=== PATIENT | male | born 1945 | race Caucasian/White ===

== ENCOUNTER 2016-11-02 15:06 | Inpatient (IN) | payer MEDICARE, OTHER ==
[2016-11-02] VITALS (11 sets, daily range): BP systolic 113–153; BP diastolic 57–82; PULSE 51–112; RESP 15–22; O2SAT 83–97
[~2016-11-02] VITALS: Ht 182.9 cm; Wt 162.8 kg
[~2016-11-02 15:06] MED LIST: ALBU8.5H2 INHALATION; ALFU10TA11 PO; FURO-128 PO; SILD100T PO
--- NOTE | 2016-11-02 15:58 | ED.REPORT ---
HPI-Dyspnea / Wheezing Date of Service Nov 02, 2016 ED Provider: Narcisa Cornejo MD A 70 year old male with a history of hypertension and CHF presents to the ED with exertional shortness of breath onset one week ago, worsening today. The shortness of breath is not exacerbated by laying flat. The patient also reports scrotal swelling, scrotal pain which has resolved, dysuria, lower extremity swelling, and a chronic left ankle wound. He denies fevers, chills, cough, or other symptoms. The patient was seen [facility] today for the wound on his ankle. [facility]. The patient did not take his Lasix today. Nursing Notes Stated Complaint: DECREASE OXYGEN LEVELS, SOB, SCROTAL SWELLING Chief Complaint: General Complaint Nursing Notes Reviewed: Yes Allergies: Coded Allergies: No Known Allergies (Unverified , 11/02/16) Scheduled Alfuzosin ER (Alfuzosin ER) 10 Mg Tab.er.24h 10 MG PO DAILY Aspirin Chew (Aspirin Chew) 81 Mg Chew 81 MG PO DAILY Cholecalciferol (Vitamin D3) (Children's Vitamin D3) 1,000 Unit Tab.chew 2,000 UNIT PO DAILY Cyanocobalamin (Vitamin B-12) (Vitamin B-12) 1,000 Mcg Tablet 1,000 MCG PO DAILY Furosemide (Furosemide) 40 Mg Tablet 40 MG PO BIDWM Tiotropium Br/Olodaterol HCl (Stiolto Respimat Inhal [place]) 2.5 Mcg-2.5 Mcg/ Actuation Mist.inhal 2 GM IH DAILY PT UNSURE OF INHALER MEDICATION. STATES STARTS WITH ST. Scheduled PRN Albuterol HFA (Proair HFA) 8.5 Gm Hfa.aer.ad 2 PUFFS INHALATION Q4H PRN PRN For Shortness of Breath Hydrocodone-Acetaminophen 5-325 mg (Hydrocodone-Acetaminophen 5-325 mg) 1 Each Tablet 1 TABLET PO TID PRN PRN For Pain Sildenafil Citrate (Viagra) 100 Mg Tablet 100 MG PO UD PRN PRN ED General Time Seen by MD: 15:56 Chief Complaint Shortness of breath Hx Obtained From: Patient Arrived By: Walk-in Onset Occurred: 1 week ago (Worsening today) Symptom Duration: Since onset Quality: Painful (Scrotum) Severity: Current: No pain currently Severity: Maximum: Moderate Associated with: Reports: Leg swelling, Denies: Cough, Fever Exacerbated by: Activity Context Related History: Reports: Congestive heart failure Recent Healthcare: Recent doctor visit Similar Sx Previous: Yes Past Medical History Past Medical History Venous hypertension CHF Past Surgical History Stomach bypass surgery Smoking History Current Every Day Smoker (5-6 Cigarettes) Ambulatory Status Independent Review of Systems Review of Systems Note: + Scrotal pain, chronic left ankle wound Constitutional: Denies: Chills, Fever Respiratory: Reports: Shortness of breath, Denies: Non-productive cough Musculoskeletal: Reports: Extremity swelling (Lower) Complete sys rev & neg: except as marked. GI: Denies: Diarrhea, Vomiting Male: Reports Dysuria, Reports Scrotal swelling Physical Exam Initial Vital Signs Vital Signs (First) Date Time Temp Pulse Resp B/P Pulse Ox O2 Delivery O2 Flow Rate FiO2 11/02/16 15:11 36.6 92 20 136/82 83 Room Air 11/02/16 15:45 2 Initial VS: Reviewed Head / Eyes: Atraumatic, Normocephalic Skin: Warm, Dry Neurologic: Alert, Oriented, Nonfocal Psychiatric: Mood/affect normal, Behavior normal, Normal thought content General/Constitutional: Awake, Alert Neck: Supple, Full range of motion Respiratory / Chest: No respiratory distress Diminished Breath Sounds: Positive: Decreased bilateral Rales / Rhonchi: Positive: Rhonchi diffuse (Scattered) Cardiovascular: Heart sounds NL Heart Rate / Rhythm: Positive: Irreg irregular rhythm ENT: Airway patent Mouth: Positive: Mucous membranes dry Abdomen: Soft, Non-tender Swollen Lower Extremity / Pelvis / MS: Non-tender Right Thigh: Positive: Erythema present, Swelling present... Left Thigh: Positive: Erythema present, Swelling present... Right Leg / Calf: Positive: Erythema present, Swelling present... Left Leg / Calf: Positive: Erythema present, Swelling present... Chronic wound to left lateral malleolus just seen and wrapped in wound care today Male Genitourinary: Penis NL Testes / Epidid / Scrotum: Positive: Scrotum erythema, Scrotum swollen Interpretation & Diagnostics Lab Results Interpretation Result Diagram: 11/02/16 1615 11/02/16 1615 Test 11/02/16 16:15 11/02/16 18:42 11/02/16 19:37 White Blood Count 8.3th/mm3 (3.8-10.1) Red Blood Count 4.79mil/mm3 (4.40-5.80) Hemoglobin 11.9g/dL (13.8-17.2) Hematocrit 40.1% (41.0-50.0) Mean Corpuscular Volume 83.7fL (81-100) Mean Corpuscular Hemoglobin 24.8pg (27.0-35.0) Mean Corpuscular Hemoglobin Concent 29.7% (32.0-37.0) Red Cell Distribution Width 18.4% (12.3-15.4) Platelet Count 213bil/L (150-400) Neutrophils (%) (Auto) 72.8% (40-74) Lymphocytes (%) (Auto) 17.4% (14-46) Monocytes (%) (Auto) 8.8% (4-12) Eosinophils (%) (Auto) 0.6% (0-5) Basophils (%) (Auto) 0.2% (0-3) Sodium Level 142mEq/L (134-144) Potassium Level 4.2mEq/L (3.5-5.2) Chloride Level 98mEq/L (97-108) Carbon Dioxide Level 33mmol/L (18-29) Blood Urea Nitrogen 15mg/dL (8-27) Creatinine 0.52mg/dL (0.76-1.27) Estimat Glomerular Filtration Rate 167mL/min (>59) Glucose Level 94mg/dL (60-99) Calcium Level 8.6mg/dL (8.5-10.1) Total Bilirubin 0.8mg/dL (0.0-1.2) Aspartate Amino Transf (AST/SGOT) 16U/L (0-50) Alanine Aminotransferase (ALT/SGPT) 9U/L (0-44) Alkaline Phosphatase 120U/L (25-160) Troponin T < 0.010ug/L (0.0-0.011) Pro-B-Type Natriuretic Peptide 944.4pg/mL (0-376) Total Protein 6.6g/dL (6.4-8.4) Albumin 3.6g/dL (3.4-5.0) Hold Abbasi Top Tube Received (Received) Urine Color Yellow (YELLOW) Urine Appearance Hazy (CLEAR,HAZY) Urine pH 6.0 (5.0-8.0) Urine Specific Wilkinson 1.015 (1.003-1.035) Urine Protein Negativemg/dL (NEG,TRACE) Urine Glucose (UA) Negativemg/dL (NEGATIVE) Urine Ketones Negativemg/dL (NEGATIVE) Urine Occult Blood Small (NEGATIVE) Urine Nitrite Negative (NEGATIVE) Urine Bilirubin Negative (NEGATIVE) Urine Urobilinogen Normalmg/dL (NORMAL) Urine Leukocyte Esterase Small (NEGATIVE) Urine RBC 3-10/hpf (0-2) Urine WBC 6-10/hpf (0-5) Urine Epithelial Cells Few/hpf (NONE-MOD) Urine Crystals None seen (NONE SEEN) Urine Bacteria Few/hpf (NONE-FEW) Urine Hyaline Casts None/lpf (NONE) Urine Granular Casts None seen (NONE SEEN) Urine Waxy Casts None seen (NONE SEEN) Urine Red Blood Cell Casts None seen (NONE SEEN) Urine White Blood Cell Casts None seen (NONE SEEN) Urine Mucus Present (None Seen) Urine Trichomonas None seen (NONE SEEN) Urine Yeast None (NONE SEEN) Urinalysis Comment None Urine Culture Reflexed Indicated Hold Urine Received (Received) ECG Interpretation ECG Interpretation: Atrial fibrillation rate 102 Low voltage No acute ST or T-wave changes Time: 15:33 Interpreted by: ED physician X-Ray Chest Interpretation Chest Xray Interpretation: IMPRESSION: Increased pulmonary vascularity suggesting of edema. There is blunting of the right costophrenic angle which could represent focal edema or nodular opacity. Recommend followup to document resolution. Dictated by: Darling Mckay M.D. on 11/02/2016 at 16:07 View: Portable, 1 view Interpretation / Wet Read by: Interpret - Radiologist CT Chest Interpretation IMPRESSION: 1. No visualized embolism within the main pulmonary branches. Distal branches are heterogeneous in appearance secondary to technique. Small areas of distal emboli versus artifact cannot be excluded. 2. Mild appearance of pulmonary vascularity. 3. Nonspecific nodules bilaterally, the largest measuring 11 mm. No priors are available for comparison. Recommend interval followup as below. Fleischner Society criteria for lung nodule followup. Nodule size (mm)Low-risk patientHigh-risk patient<=4No follow-up needed.Follow-up at 12 months; if no change, no further follow-up.>[id number] CT at 12 months; if no change, no further follow-up needed.Initial follow-up CT at 6-12 months, then 18-24 months if no change.>6-8Initial follow-up CT at 6-12 months, then 18-24 months if no change.Initial follow-up CT at 3-6 months, then 9-12 months and 24 months if no change.>8Follow-up CT at 3,9 and 24 months or PET and/or biopsySame as for low-risk patientsNon-solid (ground-glass) or partly solid nodules may require longer follow-up to exclude indolent adenocarcinoma. Dictated by: Darling Mckay M.D. on 11/02/2016 at 18:02 Study type: CT pulm angiogram Interpretation / Wet Read by: Interpret - Radiologist Re-Eval/Medical Decision Med Decision/Clinical Course The patient was sent here due to his hypoxia. He also complains of scrotal swelling and has anasarca. It appears he has chronic cellulitis to his lower extremities. Given the patient's new onset atrial fibrillation and hypoxia, CT angios obtained to rule out DVT. There is no obvious clots seen. The patient does have CHF which may be the cause of his symptoms. Additionally pneumonia was a consideration that was not shown. Source of Hx: Old records Re-Evaluation/Progress : Time of Eval: 18:41 Patient Status: Condition improved Re-Evaluation/Progress Note: Discussed with patient x-ray, CT, and lab results, diagnosis, and plan for admit. Patient agrees with plan for care and all questions were addressed. Consultation : Referral / Consult Name: Antonia Mcgovern DO Consulted With: Hospitalist Call Returned at: 19:36 Funder: Agrees with eval, Agrees with plan, Accepts admit Counseled Regarding: Diagnosis, Lab results, Need for admission Discharge & Departure Impression: Primary Impression: CHF (congestive heart failure) Congestive heart failure type: unspecified congestive heart failure type Congestive heart failure chronicity: acute on chronic Qualified Code: I50.9 - Heart failure, unspecified Additional Impressions: New onset atrial fibrillation Hypoxia Disposition: ADMITTED TO HOSPITAL Discharge Condition All VS Reviewed: Yes Condition: Improved [facility] Scribe Attestation Portions of this note were transcribed by Meenakshi Ortiz. IDr. Cornejo, personally performed the history, physical exam, and medical decision-making; I reviewed and confirmed the accuracy of the information in the transcribed note. Signed by: Berna Pan, 11/02/2016, 21:30 copies to: [facility] Narcisa Cornejo MD Nov 02, 2016 15:58 MEENAKSHI ORTIZ Nov 02, 2016 16:05
--- NOTE | 2016-11-02 16:12 | DRSVH ---
PROCEDURE: X-RAY CHEST ONE VIEW, PORTABLE ([id number]) INDICATIONS: Dyspnea TECHNIQUE: One view of the chest was acquired. COMPARISON: None. FINDINGS: Surgical changes and devices: None. Lungs and pleura: There is an overall appearance of increased pulmonary vascularity. There is blunt ing of the costophrenic angle. Mediastinum: Mediastinal contours appear normal. Heart size is normal. Bones and chest wall: No suspicious bony lesions. Overlying soft tissues appear unremarkable. IMPRESSION: Increased pulmonary vascularity suggesting of edema. There is blunting of the right cos tophrenic angle which could represent focal edema or nodular opacity. Recommend followup to document resolution. Dictated by: Darling Mckay M.D. on 11/02/2016 at 16:07 Approved by: Darling Mckay M.D. on 11/02/2016 at 16:11
[2016-11-02 16:29] LABS: BASOPHILS % (AUTO) 0.2 % (0-3); EOSINOPHILS % (AUTO) 0.6 % (0-5); MONOCYTES % (AUTO) 8.8 % (4-12); Mean Corpuscular Hemoglobin 24.8 pg (27.0-35.0); Mean Corpuscular Volume 83.7 fL (81-100); NEUTROPHILS % (AUTO) 72.8 % (40-74); Platelet Count 213 bil/L (150-400)
[2016-11-02 17:12] LABS: TROPONIN T < 0.010 ug/L (0.0-0.011)
[2016-11-02] MEDS ORDERED: Furosemide 10 mg/mL 4 mL Inj IVPUSH ONE (17:15)
--- NOTE | 2016-11-02 18:07 | DRSVH ---
PROCEDURE: CT ANGIO CHEST PULMONARY EMBOLISM ([id number]) INDICATIONS: hypoxia and afib TECHNIQUE: After the administration of intravenous contrast, 2 mm thick sections acquired from the pulmonary api elizabeth to the posterior costophrenic angles. 3-dimensional maximum intensity projection (MIP) coronal a nd sagittal reformats were then acquired through the thorax. For radiation dose reduction, the follo wing was used: automated exposure control, adjustment of mA and/or kV according to patient size. COMPARISON: None. FINDINGS: Image quality: Contrast opacification within the pulmonary arteries distal to the main branches is he terogeneous. Pulmonary arteries: Pulmonary arteries are normal in size, and demonstrate no intraluminal filling d efects to suggest central pulmonary embolism. Lungs and pleura: The lungs demonstrate a mild appearance of increased pulmonary vascularity. There i s a 10 mm nodule within the right middle lobe on series 5 image 28 without priors available for arnav rison. An adjacent 4 mm nodule seen on series 5 image 32. There is an 11 mm nodule the left lower lob e on series 5 image 23. 4 mm nodules present in the left lower lobe on series 5 image 30. Mediastinum: Heart size is normal, without pericardial effusion. No mediastinal or hilar adenopathy . Thoracic aorta is normal in caliber and enhancement. Esophagus is normal in caliber, without hiat al hernia. Bones and chest wall: No suspicious bony lesions. Ribs and thoracic spine appear intact throughout. Thyroid gland is unremarkable. No axillary or supraclavicular adenopathy. Abdomen: Visualized upper abdominal solid organs appear normal in the early arterial phase of enhanc ement. IMPRESSION: 1. No visualized embolism within the main pulmonary branches. Distal branches are heterogeneous in ap pearance secondary to technique. Small areas of distal emboli versus artifact cannot be excluded. 2. Mild appearance of pulmonary vascularity. 3. Nonspecific nodules bilaterally, the largest measuring 11 mm. No priors are available for comparis on. Recommend interval followup as below. Fleischner Society criteria for lung nodule followup. Nodule size (mm)Low-risk patientHigh-risk patient<=4No follow-up needed.Follow-up at 12 months; if no change, no further follow-up.>8-9Swxcof-xe CT at 12 months; if no change, no further follow-up neede d.Initial follow-up CT at 6-12 months, then 18-24 months if no change.>6-8Initial follow-up CT at 6- 12 months, then 18-24 months if no change.Initial follow-up CT at 3-6 months, then 9-12 months and 24 months if no change.>8Follow-up CT at 3,9 and 24 months or PET and/or biopsySame as for low-risk patientsNon-solid (ground-glass) or partly solid nodules may require longer follow-up to exclude indolent adenocarcinoma. Dictated by: Darling Mckay M.D. on 11/02/2016 at 18:02 Approved by: Darling Mckay M.D. on 11/02/2016 at 18:05
[2016-11-02 18:49] LABS: APPEARANCE,URINE HAZY (CLEAR,HAZY); COLOR,URINE YELLOW (YELLOW); OCCULT BLOOD,URINE SMALL (NEGATIVE); UROBILINOGEN,URINE NORMAL (NORMAL)
[2016-11-02] MEDS ORDERED: Polyethylene Glycol (PEG) 17 Gm Powder PO PRN (19:40)
[2016-11-02] MEDS ORDERED: Ondansetron 2 mg/mL 2 mL Inj IVPUSH PRN (19:40)
[2016-11-02] MEDS ORDERED: Alum-Mag Hydrox-Simeth 30 mL Suspension PO PRN (19:40)
[2016-11-02] MEDS ORDERED: ALBU8.5H2 INHALATION (20:44)
[2016-11-02] MEDS ORDERED: FURO40TA4 PO (20:44)
[2016-11-02] MEDS ORDERED: HYDR-4003 PO (20:46)
[2016-11-02] MEDS ORDERED: CYAN10008 PO (20:46)
[2016-11-02] MEDS ORDERED: ASPI81TA3 PO (20:46)
[2016-11-02] MEDS ORDERED: CHOL-29 PO (20:46)
[2016-11-02] MEDS ORDERED: TIOT4MIS3 IH (20:49)
[2016-11-02] MEDS ORDERED: Albuterol 2.5 mg/3 mL Inhalation Solution NEB PRN (22:23)
[2016-11-02] MEDS ORDERED: HYDROcodone-APAP 5-325 mg Tablet PO PRN (22:30)
--- NOTE | 2016-11-02 22:50 | PCM.HPMED ---
Subjective Date of Service Nov 02, 2016 Primary Provider: Admitting Physician: Antonia Mcgovern DO Primary Care Physician: [facility] Attending Physician: Antonia Mcgovern DO Chief Complaint: Hypoxia Shortness of breath Lower extremity edema History of Present Illness: Patient is a 70-year-old gentleman who presented to the emergency department after being seen [facility] by his primary care doctor for the complaint of scrotal swelling. While at the [facility] they found his O2 sat to be 83%, they instructed him to go to the emergency department. He claims that in the last week he has had worsening dyspnea on exertion, without orthopnea. He is haphazard historian only recalling medical conditions if specifically asked otherwise states "I have no medical problems" he denies ever having an echocardiogram performed, he denies having COPD and only having asthma exacerbation 40 years ago, but his outpatient medication reconciliation shows him to be on COPD inhalers. Additionally on further questioning he admits to having to use a CPAP machine at night and "but I do not need it." He is seen [address] [facility] wound care clinic for chronic left ankle wound. He takes 40 mg Lasix, recently up to twice a day, says he has not taken the medication today because if he took it in the morning he would not have been able to hold his urine until he got to the doctor's appointment. He denies any lightheadedness, dizziness, chest pain, nausea, vomiting, diarrhea , dysuria, scrotal pain, lower extremity pain, rashes, headaches, changes in vision, increased thirst. He states he has not eaten in almost 24 hours In the emergency department he was found to have: Temperature 36.6, heart rate of 32, 20 respirations per minute, 136/82, 83% on room air. He had a normal white count, mild anemia 11.9 hemoglobin, platelets 213, bicarbonate 33%, creatinine 0.52, otherwise CMP unremarkable. Negative troponin , BNP 944. Analysis showed pH 6.0, no protein, no glucose, no ketones, small occult blood, no nitrites, small leukocyte esterase, 3-10 red blood cells per high-powered field, 6-10 white blood cells per high-powered field, few urine bacteria, few epithelial cells and mucus is present EKG showed atrial fibrillation with a rate of 102, no acute ST or T-wave abnormalities. Chest x-ray showed increased pulmonary vascularity suggesting anemia. Also reported blunting of the right costophrenic angle which could represent edema or nodular opacity. Chest CT angiography: No pulmonary embolism was frankly seen, then at the distal branches are "heterogeneous in appearance secondary to technique. Small areas of distal emboli versus artifact cannot be excluded." Nonspecific nodules bilaterally, the largest measuring 11 mm. Review of Systems: Comprehensive review of systems performed, Negative unless stated in history of present illness Allergies Coded Allergies: No Known Allergies (Unverified , 11/02/16) Home Medications Scheduled Alfuzosin ER (Alfuzosin ER) 10 Mg Tab.er.24h 10 MG PO DAILY Aspirin Chew (Aspirin Chew) 81 Mg Chew 81 MG PO DAILY Cholecalciferol (Vitamin D3) (Children's Vitamin D3) 1,000 Unit Tab.chew 2,000 UNIT PO DAILY Cyanocobalamin (Vitamin B-12) (Vitamin B-12) 1,000 Mcg Tablet 1,000 MCG PO DAILY Furosemide (Furosemide) 40 Mg Tablet 40 MG PO BIDWM Tiotropium Br/Olodaterol HCl (Stiolto Respimat Inhal Cross Anchor) 2.5 Mcg-2.5 Mcg/ Actuation Mist.inhal 2 GM IH DAILY PT UNSURE OF INHALER MEDICATION. STATES STARTS WITH ST. Scheduled PRN Albuterol HFA (Proair HFA) 8.5 Gm Hfa.aer.ad 2 PUFFS INHALATION Q4H PRN PRN For Shortness of Breath Hydrocodone-Acetaminophen 5-325 mg (Hydrocodone-Acetaminophen 5-325 mg) 1 Each Tablet 1 TABLET PO TID PRN PRN For Pain Sildenafil Citrate (Viagra) 100 Mg Tablet 100 MG PO UD PRN PRN ED to be [facility] with [facility] PMH Poor historian Venous hypertension Congestive heart failure Chronic venous insufficiency ulcer left lower extremity (assumed not stated) Based on medications we presume the following COPD BPH Surgical History Gastric bypass Appendectomy Social History Occupation: retired Hx Substance Use: No Hx Tobacco Use: Yes Smoking Status: Current Every Day Smoker (5-6 Cigarettes) Years of Smokin Exam Vital Signs Vital Sign - Last Date Time Temp Pulse Resp B/P Pulse Ox O2 Delivery O2 Flow Rate FiO2 11/02/16 21:14 112 11/02/16 20:54 36.9 22 141/82 93 Nasal Cannula 2.00 Exam General: Laying in bed, no apparent distress. Disheveled HEENT: Normocephalic, atraumatic, EOMI grossly, mucous membranes dry, Cardiovascular: Irregularly irregular, tachycardic, no clicks murmurs or rubs, radial pulses 2/4 equal bilaterally. Pulmonary: Diminished breath sounds bilaterally, diffuse inspiratory and expiratory wheezing. No rales or rhonchi Abdominal: Soft to palpation, bowel sounds present 4, no hepatosplenomegaly. Negative rebound. Bright red, moist, foul-smelling skin under pannus, and mammary folds. Extremities: Severe bilateral edema, surgical wound bandage in place to left calf and ankle, right lower extremity dark red to purple pigmentation, no ulcers appearing on right lower extremity, flaky skin, brown discoloration of toenails. : Swollen scrotum, unable to appreciate masses, hernia, unable to fully retract foreskin to reveal glans of penis, Neuro: Neurologically grossly intact, strength is equal bilaterally upper and lower extremities. MSK: Strength 5 out of 5 upper extremities, lower extremities difficult to evaluate due to swelling and habitus Lymph: no lymphadenopathy present Lab and Diagnostics Result Diagram: 11/02/16 1615 11/02/16 1615 Microbiology Urine specimen sent for culture X-Rays, CTs and MRIs Portable chest x-ray performed 11/02/2016 IMPRESSION: Increased pulmonary vascularity suggesting of edema. There is blunting of the right costophrenic angle which could represent focal edema or nodular opacity. Recommend followup to document resolution. CT angiogram chest, performed 11/02/2016 IMPRESSION: 1. No visualized embolism within the main pulmonary branches. Distal branches are heterogeneous in appearance secondary to technique. Small areas of distal emboli versus artifact cannot be excluded. 2. Mild appearance of pulmonary vascularity. 3. Nonspecific nodules bilaterally, the largest measuring 11 mm. No priors are available for comparison. Recommend interval followup as below. 12-lead ECG Heart rate 102, atrial fibrillation, no signs of acute infarct or ischemia. Left ventricular hypertrophy without strain. Assessment & Plan 70-year-old male found to be hypoxic, believed to have CHF, COPD, venous hypertension, presumed to have CHF exacerbation. Treated with IV furosemide, and states feeling better following treatment. Patient is a very poor historian , unable to state what medications he is on, or previous diagnoses, or what the medications he is taking them for. Awaiting records from the [facility], request has been faxed. #1 acute hypoxic respiratory failure, present on admission, improving Found to be satting in the low 80%'s in the outpatient setting, confirmed in the emergency department, most likely due to congestive heart failure exacerbation and superimposed COPD. Did not take his furosemide before presentation. Anion gap 11 Serum Bicarbonate 33 Peripheral O2 saturation is responded to nasal cannula. Treatment as below her precipitating conditions #2 Acute on Chronic congestive heart failure, present on admission, improving Presumably caused by Chronic uncontrolled hypertension, new onset atrial fibrillation and resultant new cardiac insufficiency. Evidenced by dyspnea on exertion, lower extremity edema. ECHO ORDERED - patient states he never remembers receiving "an ultrasound of his heart" CXR evidence of fluid overload Daily Weights I&Os. Furosemide IV for fluid diuresis Start Lisinopril 2.5mg HS. Repeat CXR in AM. Cardiology to consult in the AM, ordered placed, have did not page cardiology on -call. #3 acute new onset Atrial fibrillation, present on admission, treatment initiated. Patient is asymptomatic, chronicity unknown. Without outpatient records assuming this to be new atrial fibrillation, he denies recalling ever being told he has Afib, nor do his medication list reflects the anticipated medications for treatment. [id number]: 4 and Has-bled score: 2 EKG as documented, echo as above Anticoagulation, heparin Drip at this time given unknown chronicity: Consider CATE to rule out left atrial thrombus, patient has chronic wound to left lower extremity, may post bleeding risk. Given non-compliance concern regarding discharge with chronic anti-coagulation - am team to discuss more in depth Antiplatelet with 81 mg aspirin Heart rate increasing to 110's, starting diltiazem IV PUSH to control rate. Watch heart rate carefully, heart rate documented earlier was in the 50s, asymptomatic. TSH plus T4 pending Lipid panel pending Patient placed on telemetry Cardiology consultation as above #4 Acute on chronic COPD. Present on admission, treatment ongoing Duoneb q4h when necessary for shortness of breath or abrupt drop in O2 saturation. Albuterol q2h PRN O2 supplementation with Nasal Canula at this time. Goal of 92-94% given presumed chronic nature. #5 Acute on chronic Hypertension, uncontrolled, present on admission. Not on any medications out-patient that I see. Will continue to diurese and assess baseline HTN. IV Diltiazem PUSH IV and oral furosemide as above Lisinopril as above Cardiology consultation as above We will monitor for worsening HTN necessitating more aggressive treatment. #6 Chronic lower extremity wounds Stable. Evaluated earlier today and redressed. We will monitor while inpatient, next appointment at wound care is . If patient so and patient will request wound evaluation in the hospital. #7 Chronic Obstructive sleep apnea, present on admission, stable monitor overnight O2 sats overnight Nasal cannula in place Request Cpap be brought to him from home. #8 Most likely chronic Tinea cruris + Tinea corpus, present on admission, treatment initiated Found on physical exam, not being treated as an outpatient, Nystatin twice a day apply to affected areas. #9 Chronic Tobacco abuse, present on admission, education given. Nicotine patches for tobacco withdrawal Discussed the benefits of quitting smoking, however relates to current condition. Pain Evaluation: Adequate Pain Control GI Prophylaxis: Not indicated VTE Prophylaxis: Sub-Q Heparin (Unfractionated) Resuscitation Status: Limited Interventions (NO COMPRESSION/CPR/DEFIB. INTUBATION/BIPAP OKAY) Attending Statement The patient was seen and examined together with house staff on 11/02/2016 and I agree with the history, exam and plan as outlined in the note above. Zhao Cabrera DO Nov 02, 2016 22:50 Antonia Mcgovern DO Nov 03, 2016 02:13
[2016-11-02] MEDS ORDERED: Albuterol-Ipratropium 3 mL Inhalation Solution NEB PRN (23:40)
[2016-11-02] MEDS: Nystatin 100,000 Unit/Gm 15 Gm Powder TOPICAL SCH (23:56)
[2016-11-03] VITALS (11 sets, daily range): BP systolic 103–150; BP diastolic 68–82; PULSE 81–105; RESP 16–24; O2SAT 91–99
[2016-11-03] MEDS ORDERED: MeTOProlol XL 25 mg ER24 Tablet PO SCH (00:02)
[2016-11-03] MEDS ORDERED: Diltiazem 5 mg/mL 5 mL Inj IVPUSH ONE (00:45)
[2016-11-03] MEDS: Furosemide 10 mg/mL 4 mL Inj IVPUSH SCH ×2 (01:06→08:41)
[2016-11-03] MEDS: Heparin 25K Unit/500mL 0.45 NS 25,000 UNIT in IV Premix 1 EACH IV SCH ×2 (01:18→22:24)
--- NOTE | 2016-11-03 03:14 | NUR ---
ADMIT Patient admit for low oxygen saturations and increasing SOB. Patient is a rather poor historian. Multiple skin issues with wound care treating for lower leg wound. Consult ordered for ongoing care of his leg and to evaluate rashes in all his folds. Patient given IV lasix, voiding well into urinal, reports increasing ease of breathing. Denies any pain issues at this time. Oriented to room and call light.
[2016-11-03] MEDS: predniSONE 20 mg Tablet PO SCH ×2 (04:01→08:41)
[2016-11-03] MEDS ORDERED: Albuterol 2.5 mg/3 mL Inhalation Solution NEB PRN (07:00)
[2016-11-03 07:03] LABS: BASOPHILS % (AUTO) 0.2 % (0-3); EOSINOPHILS % (AUTO) 0.8 % (0-5); MONOCYTES % (AUTO) 6.4 % (4-12); Mean Corpuscular Hemoglobin 24.8 pg (27.0-35.0); Mean Corpuscular Volume 86.1 fL (81-100); NEUTROPHILS % (AUTO) 81.4 % (40-74); Platelet Count 209 bil/L (150-400)
[2016-11-03] MEDS ORDERED: Tiotropium 18mcg/Cap 5 Capsule Inhaler Kit INHALATION SCH (08:30)
[2016-11-03] MEDS ORDERED: Arformoterol 15 mCg/2 mL Inhalation Solution NEB SCH (08:30)
[2016-11-03] MEDS: Nystatin 100,000 Unit/Gm 15 Gm Powder TOPICAL SCH ×2 (08:47→19:26)
--- NOTE | 2016-11-03 09:19 | NUR ---
LETHARGY pt is very lethargic and needs to be repeatedly awakened to take his morning medications. pt had difficulty swallowing pills with water but tolerated swallowing the pills with applesauce.
--- NOTE | 2016-11-03 09:26 | NUR ---
Social Work-initial assessment: Data:See initial assessment. Pt is a 70 y/o male who was admitted on 11/02/16 for hypoxia per H&P. Pt's insurance is [facility] and pt states he also has MCR and PCP is Dr. Urbina at [facility]. EMR reviewed. SW met with pt at bedside to discuss discharge planning, SW role explained. Pt is alert and oriented x3. Pt resides at home alone in a ground floor apartment where he remains independent with ADLS. Pt drives and uses a fww at baseline. Pt has no History of HH or SNF. Pt has no rn long term care care insurance, but does have [facility] benefits. SW discussed DPOA/ advanced directive, pt confirms he has completed this, SW encouraged pt to bring a copy into the hospital. Pt feels like he has enough help at home. Pt may benefit from PT evaluation prior to discharge. Pt plans on driving himself home at discharge. SW provided phone number and plan on white board in room .SW will continue to follow. Assessment:Pt who is independent at baseline. Plan:Pt will likely discharge home when medically stable via POV.. R/O HH services. Pt may benefit from PT evaluation prior to discharge.SW will continue to follow. WILMER Espinoza Addendum: 11/03/16 at 0930 by MANDI SEXTON Amended: Links added.
--- NOTE | 2016-11-03 09:45 | PCM.PNMED ---
Subjective Date of Service Nov 03, 2016 Subjective Patient is a 70-year-old gentleman who presented to the emergency department after being seen at the [facility] by his primary care doctor for the complaint of scrotal swelling. Patient reports that he felt "crappy" yesterday and continues to not feel well today. He has been having worsening dyspnea for the past few days. He does not wear oxygen at home. He uses 2 inhalers for his COPD. He noticed that his scrotum is swollen and red for the past 1-2 days, which is why he went to his primary care provider at the [facility] yesterday. He does not have trouble urinating, but it is painful for him to use the urinal without cushioning around the edge. They tried to put in a North catheter twice yesterday unsuccessfully. He does not have dysuria or pain in his scrotum. Exam Vital Signs Vital Sign - Last Date Time Temp Pulse Resp B/P Pulse Ox O2 Delivery O2 Flow Rate FiO2 11/03/16 09:04 36.9 105 20 150/82 92 Nasal Cannula 3.00 Intake and Output 11/02/16 11/02/16 11/03/16 Cumulative From/Thru 15:00 23:00 07:00 11/02/16 15:11 - 11/03/16 06:40 Intake Total 377 ml 377 ml Output Total 2000 ml 2000 ml Balance -1623 ml -1623 ml Intake Oral 300 ml 300 ml IV Total 77 ml 77 ml Output Urine Total 2000 ml 2000 ml Exam General: Obese elderly man, laying in bed, no apparent distress. Disheveled HEENT: Normocephalic, atraumatic, EOMI grossly, mucous membranes dry, Cardiovascular: Irregularly irregular, no clicks murmurs or rubs, radial pulses 2/4 equal bilaterally. Pulmonary: Diminished breath sounds bilaterally, diffuse inspiratory and expiratory wheezing. No rales or rhonchi. Increased respiratory effort with use of accessory muscles. Abdominal: Soft to palpation, bowel sounds present 4, no hepatosplenomegaly. Negative rebound. Bright red, moist, foul-smelling skin under pannus, and mammary folds. Extremities: Severe bilateral edema, surgical wound bandage in place to left calf and ankle, right lower extremity dark red to purple pigmentation, no ulcers appearing on right lower extremity, flaky skin, brown discoloration of toenails. : Edema and erythema of scrotum, scrotum is surrounding penis, unable to appreciate masses, hernia, unable to fully retract foreskin to reveal glans of penis Neuro: Neurologically grossly intact, strength is equal bilaterally upper and lower extremities. MSK: Strength 5 out of 5 upper extremities, lower extremities difficult to evaluate due to swelling and habitus Lymph: no lymphadenopathy present IVs and Medications Medications Reviewed: Medications were reviewed in detail Lab and Diagnostics Result Diagram: 11/03/1660411/03/16604 Microbiology Urine specimen sent for culture X-Rays, CTs and MRIs Portable chest x-ray performed 11/02/2016 IMPRESSION: Increased pulmonary vascularity suggesting of edema. There is blunting of the right costophrenic angle which could represent focal edema or nodular opacity. Recommend followup to document resolution. CT angiogram chest, performed 11/02/2016 IMPRESSION: 1. No visualized embolism within the main pulmonary branches. Distal branches are heterogeneous in appearance secondary to technique. Small areas of distal emboli versus artifact cannot be excluded. 2. Mild appearance of pulmonary vascularity. 3. Nonspecific nodules bilaterally, the largest measuring 11 mm. No priors are available for comparison. Recommend interval followup as below. 12-lead ECG Heart rate 102, atrial fibrillation, no signs of acute infarct or ischemia. Left ventricular hypertrophy without strain. Assessment & Plan 70-year-old male found to be hypoxic, believed to have CHF, COPD, venous hypertension, presumed to have CHF exacerbation. Treated with IV furosemide, and states feeling better following treatment. Patient is a very poor historian , unable to state what medications he is on, or previous diagnoses, or what the medications he is taking them for. Awaiting records from the [facility], request has been faxed. #1 acute hypoxic respiratory failure, present on admission, improving Found to have oxygen saturation in the low 80%'s in the outpatient setting, confirmed in the emergency department, most likely due to congestive heart failure exacerbation and superimposed COPD. Did not take his furosemide before presentation. CT chest angiogram showed possible small areas of distal emboli or artifact. -Anion gap 11 initially, increased to 16 today -Serum Bicarbonate 33 originally but improved to 31 this morning -Peripheral O2 saturation is responded to nasal cannula. -Treatment as below per precipitating conditions -US bilateral duplex of lower extremity to look for a DVT since possible distal emboli on CT chest #2 Acute on Chronic congestive heart failure, present on admission, improving Presumably caused by Chronic uncontrolled hypertension, new onset atrial fibrillation and resultant new cardiac insufficiency. Evidenced by dyspnea on exertion, lower extremity edema. -Lipid panel showed low HDL of 37 -CXR evidence of fluid overload -Daily Weights I&Os. -Furosemide 40 mg IV once daily for fluid diuresis -Start Lisinopril 2.5mg HS. -Repeat CXR ordered for this morning -ECHO ORDERED - patient states he never remembers receiving "an ultrasound of his heart" -Cardiology consult pending results of echocardiogram -Will increase furosemide based on volume status and patient's ability to urinate comfortably due to scrotal edema #3 acute new onset Atrial fibrillation, present on admission, treatment initiated. Patient is asymptomatic, chronicity unknown. Without outpatient records assuming this to be new atrial fibrillation, he denies recalling ever being told he has Afib, nor do his medication list reflects the anticipated medications for treatment. -[id number]: 4 and Has-bled score: 2 -EKG as documented, echo as above -Heart rate increased to 110's, he was given a diltiazem IV PUSH to control rate. Watch heart rate carefully, heart rate documented earlier was in the 50s , asymptomatic. -TSH plus T4 within normal limits -Anticoagulation, heparin Drip, with goal to bridge to warfarin, at this time given unknown chronicity: Consider CATE to rule out left atrial thrombus, patient has chronic wound to left lower extremity, may post bleeding risk. Given non-compliance concern regarding discharge with chronic anti-coagulation. However, will likely need to discharge the patient on warfarin due to cost benefit. -Antiplatelet with 81 mg aspirin -Patient placed on telemetry -Cardiology consultation as above -Started metoprolol tartrate 12.5 mg twice per day and will monitor patient's heart rate and if stable, will switch to metoprolol succinate 25 mg once daily #4 Acute on chronic COPD. Present on admission, treatment ongoing -Duoneb q4h when necessary for shortness of breath or abrupt drop in O2 saturation. -Albuterol q2h PRN -O2 supplementation with Nasal Canula at this time. Goal of 88-92% given presumed chronic nature. #5 Scrotal edema and erythema. Present on admission. Active. -Possible fungal cellulitis. -Patient has tinea corpus as well. He does not have an elevated WBC and he is afebrile. -Infectious disease consulted. Their time and recommendations are appreciated. -Consider CT scan with contrast of his pelvis for further evaluation -Urology consulted and will see patient tomorrow. #6 Acute on chronic Hypertension, uncontrolled, present on admission. -Not on any medications out-patient that I see. Will continue to diurese and assess baseline HTN. -IV Diltiazem PUSH once -IV furosemide as above -Lisinopril as above -Cardiology consultation as above We will monitor for worsening HTN necessitating more aggressive treatment. #7 Chronic lower extremity wounds Stable. Evaluated earlier yesterday and redressed at wound care. -We will monitor while inpatient, next appointment at wound care is . -Wound care consultation ordered #8 Chronic Obstructive sleep apnea, present on admission, stable -monitor overnight O2 sats overnight -Nasal cannula in place -Request Cpap be brought to him from home. #9 Most likely chronic Tinea cruris + Tinea corpus, present on admission, treatment initiated -Found on physical exam, not being treated as an outpatient, -Nystatin twice a day apply to affected areas. -Wound care and infectious disease consulted. Their time and recommendations are appreciated. -HgbA1c pending #10 Chronic Tobacco abuse, present on admission, education given. -Nicotine patches for tobacco withdrawal -Discussed the benefits of quitting smoking, however relates to current condition. GI Prophylaxis: Not indicated VTE Prophylaxis: Sub-Q Heparin (Unfractionated) Resuscitation Status: Limited Interventions (NO COMPRESSION/CPR/DEFIB. INTUBATION/BIPAP OKAY) Attending Statement The patient was seen and examined together with Resident/House-staff on 11/03/16 and I agree with the history, exam and plan as outlined in the note above. Beth Carrillo DO Nov 03, 2016 09:45 Aashish Salazar Nov 03, 2016 18:11
--- NOTE | 2016-11-03 12:04 | DRSVH ---
PROCEDURE: X-RAY CHEST ONE VIEW, PORTABLE ([id number]) INDICATIONS: Pulm Edema TECHNIQUE: One view of the chest was acquired. COMPARISON: [facility], CT, CT ANGIO CHEST PE, 11/02/2016, 17:33. [facility] , CR, XR CHEST 1VW (PORTABLE), 11/02/2016, 15:43. FINDINGS: Surgical changes and devices: None. Lungs and pleura: No pleural effusions or pneumothorax. Pulmonary vasculature prominent mild edema not significantly changed. Elevation of the right hemidiaphragm. Mediastinum: Mediastinal contours appear normal. Heart size is normal. Bones and chest wall: No suspicious bony lesions. Overlying soft tissues appear unremarkable. IMPRESSION: Mild venous congestion redemonstrated. Of note, small nodules seen on prior CT scan not well visualized by plain film. Dictated by: Carlos RAMOS Interpreted: Darling Mckay MD on 11/03/2016 at 11:31 Transcribed by: BESSIE on 11/03/2016 at 12:04 Approved by: Darling Mckay M.D. on 11/03/2016 at 17:30
--- NOTE | 2016-11-03 13:25 | DRSVH ---
PROCEDURE: US VENOUS LEG DUPLEX BILATERAL INDICATIONS: leg swelling, ?DVT TECHNIQUE: Real-time imaging, as well as color and pulse Doppler interrogation, were performed of the deep veins of both legs from the inguinal ligament to the popliteal fossa. COMPARISON: None. FINDINGS: The deep veins are normally compressible, and free of intraluminal thrombus. Color and pu lse Doppler demonstrate normal phasic intravascular flow. There is normal augmentation was performed . IMPRESSION: Limited study demonstrating no deep venous thrombosis within either the left or right low er extremities. Dictated by: Carlos RAMOS Interpreted: Darling Mckay MD on 11/03/2016 at 13:25 Transcribed by: BESSIE on 11/03/2016 at 13:25 Approved by: Darling Mckay M.D. on 11/03/2016 at 18:46
--- NOTE | 2016-11-03 15:33 | DRSVH ---
[facility] [address] [place] [address] Echocardiogram Report Name: JOSR FONTENOT Date : 11/03/2016 Height: 72 in Hospital Exam Location: [facility] Weight: 368 lb Gender: Male BSA: 2.8 m2 : 1945 Age: 70 yrs BP: 128/76 mmHg Reason For Study: Congestive Heart Failure History: COPD. smoker Ordering Physician: Performed By: Marva Hayes Referring Physician: [facility] Interpretation Summary Atrial fibrillation with heart rates between 79-116 bpm during the exam. Mild concentric left ventricular hypertrophy with ejection fraction 65-70%. Moderately dilated both atria. Mild tricuspid regurgitation. The right ventricular systolic pressure is estimated at 61 mmHg assuming a right atrial pressure of 8 mm Hg. Moderate-severe pulmonary hypertension. Moderately enlarged ascending aorta. Procedure: A two-dimensional transthoracic echocardiogram with color flow and Doppler was performed. The study quality was technically adequate. There is no prior echocardiogram noted for this patient. A contrast injection of Definity was performed to improve assessment of LV function. The patient did well with Definity. The patient was in atrial fibrillation with heart rates between 79-116 bpm during the exam. Left Ventricle: The left ventricle is normal in size. There is mild concentric left ventricular hypertrophy. There is no thrombus. The ejection fraction is estimated to be 65-70%. Flattened septum is consistent with RV pressure overload. Diastolic function could not be accurately assessed due to atrial fibrillation. Right Ventricle: The right ventricle is grossly normal size. Right ventricular function cannot be assessed due to poor image quality. Atria: Both atria are moderately dilated. There is no Doppler evidence for an interatrial shunt. In the apical 4 chamber view, there appears to be a solid, round, 3.8x3.2 cm, hypoechoic structure superior to the interatrial septum. Mitral Valve: The mitral valve is normal in structure and function. There is no mitral regurgitation. Aortic Valve: The aortic valve opens well. No aortic regurgitation is present. Tricuspid Valve: The tricuspid valve leaflets are thin and pliable. There is mild tricuspid regurgitation. The right ventricular systolic pressure is estimated at 61 mmHg assuming a right atrial pressure of 8 mm Hg. There is moderate-severe pulmonary hypertension. Pulmonic Valve: The pulmonic valve leaflets are thin and pliable; valve motion is normal. There is trace pulmonic regurgitation. Great Vessels: The aortic root is normal size. The ascending aorta is moderately enlarged. The aortic arch could not be visualized. The IVC is of normal diameter and collapses less than 50% with a sniff. This suggests a right atrial pressure of 8 mm Hg. Pericardium/ Pleura There is no pericardial effusion. MMode/2D Measurements & Calculations LVIDd: 4.8 cm LA dimension: 4.5 cm RA long axis LVOT diam LVIDs: 3.8 cm FS: 20.3 % LA A2 area: 34.1 cm RA area AoV Opening EPSS: 0.07 cm LA A4 area: 35.0 cm IVSd: 1.2 cm LA length (vol): 7.9 cm: 31.0 cm Ao root diam LVPWd: 1.3 cm LA vol: 128.3 ml RA vol LA vol index : 108.ml Aortic Jxn RA : 39.5 mm2 asc Aorta IVC diam: 2.1 cm Diam: 4.2 cm LV goldman. diameter/BSA LV sys. diameter/BSA RVD1 (basal) (cm/m^2): 1.7 (cm/m^2): 1.4 Doppler Measurements & Calculations Ao V2 max MV E max thomas Med Peak E' Thomas TR max thomas : 154.8 cm/sec : 117.3 cm/sec : 363.5 cm/sec Ao max P.6 mmHg E/E' med: 11.8 TR max PG Ao mean P.0 mmHg : 52.9 mmHg LVOT Max Thomas PA V2 max : 114.5 cm/sec : 81.2 cm/sec PA mean PG ORIANA(I,D): 3.4 cm sev ratio: 0.79 PA Accel Time : 0.12 sec MV dec time: 0.13 sec Ao V2 mean LV V1 max PG PA V2 mean : 103.4 cm/sec : 57.3 cm/sec Ao V2 VTI: 26.0 cm LV V1 VTI: 20.5 cm ORIANA(V,D): 3.2 cm2 ORIANA indexed to BSA (cm^2/m^2): 1.2 Electronically signed by: Erinn Ware on Reading Physician:11/03/2016 03:32 PM
--- NOTE | 2016-11-03 16:12 | ABG ---
DateTimeAnalyzed 16:08:00 -_ pH ____7.230 - 7.350 7.450 pCO2 102 -mmHg 35.0 45.0 pO2 ___71.5__ -mmHg 69.0 116 HCO3- ___41.2__ -mmol/L 22.0 26.0 ABE ___10.4__ -mmol/L -2.0 2.0 tHb ___11.6__ -g/dL O2Hb ___87.5__ -% COHb ____4.0__ -% MetHb ____1.1__ -% sO2 ___92.2__ -% 25.0 FIO2 ___30.0__ -% Drawn By jj - Date/Time Notified____ 16:11:00 -_ Liter_Flow ____2.5__ -L/min Oxygen Device 1 __CANNULA - Notified By jj - Notified Whom ___Dr. Gerardo - B 754 -mmHg tO2 ___14.4__ -Vol% Juan test _Positive -
--- NOTE | 2016-11-03 16:40 | NUR ---
transfer pt to be transferred downstairs to 2009 due to abnormal ABG. Addendum: 11/03/16 at 1659 by SOFIA GOFF RN pt transferred in [facility] w/o incident. pt's belongings and his meal tray were brought down after the pt was transported to the 2nd floor.
--- NOTE | 2016-11-03 17:53 | NUR ---
Transfer to [facility] Patient transferred from 3014 to 2009 to be put on BiPAP. Patient arrived via [facility] bed. Patient A&O x3, VSS. Tele shows patient is in Afib with rate 90s-100s. Patient does desat quickly when he removes Bi PAP mask. Patient has LLE wound and is being followed by wound care, wound evaluated by Dr Wan and dressing replaced by nurse's assistant. Patient lives independently and ambulates using FWW. Patient is currently resting in bed, eating his dinner. Call light within reach.
--- NOTE | 2016-11-03 17:57 | NUR ---
Wound Care Pt seen at bedside for evaluation of left lateral calf ulcer. Ulcers measures 2.5 cm L x 2 cm W x 0.2 cm D. Wound base is fibrin covered and drainage is minimal Wound is selectively debrided with a # 15 blade of fibrin, no change to dimensions of wound, slough was debrided. Redressed with hydrogel, Xeroform then wrapped with kerlix and coban, will change in 48 hours. Stable non-infected stasis ulcer of left lateral calf.
[2016-11-03] MEDS: Heparin 5,000 Unit/mL Inj IVPUSH PRN (19:25)
--- NOTE | 2016-11-03 19:39 | CONS ---
[address] [address] CONSULTATION REPORT PATIENT: JOSR FONTENOT : 1945 MR#: [id number] ADMIT: 11/02/2016 JOB ID: [id number] DATE OF SERVICE: 11/03/2016 EMERGENT PULMONARY CONSULTATION: REQUESTING PHYSICIAN: Beth Carrillo DO REASON FOR CONSULTATION: Acute on chronic hypercarbic respiratory failure. HISTORY OF PRESENT ILLNESS: The patient is a 70-year-old, male admitted from [facility] for scrotal swelling. O2 saturation was also noted to be 83%. On arrival in the emergency department he denied any medical problems. States he uses a trumpet at night with a breathing machine for his breathing at night. Unable to give much else of the history. Denies shortness of breath, chest pain, or cough. However, the patient is very lethargic. Admission chart notes and progress notes of today reviewed. PAST MEDICAL HISTORY: Unable to obtain any other history. REVIEW OF SYSTEMS: Unable. ADMISSION MEDICATIONS: Include alfuzosin, aspirin, cholecalciferol, cyanocobalamin, furosemide, tiotropium with p.r.n. use of albuterol inhaler, hydrocodone/acetaminophen, pain pill, and sildenafil for unknown reason. OBJECTIVE: Temperature 36.6, pulse 90, respiratory rate 16, blood pressure 130/81, O2 sat on nasal cannula is 93%. General appearance: Quite lethargic, but will open his eyes and answer some questions. Knows the place and time, though some answers were rather slow, but were accurate. Nods off if not stimulated. Throat: Unable to be examined. Chest: Markedly distant breath sounds. Maybe some air flow in the upper low lung bunch. No air entry in the mid and lower lung bunch. Heart: Somewhat rapid rate. Slightly irregular apparently. Abdomen: Soft. Obese. Nontender. Some induration over the suprapubic area of the abdominal pannus. Both the lower extremities are markedly edematous and erythematous. Wrap on the left lower extremity below the knee. ABGs just drawn this evening show a pO2 of 71 on 2.5 L of oxygen by nasal cannula, pCO2 of 102, pH of 7.23. LABORATORY DATA: Shows a white count of 8300 with a mild neutrophilia. Hemoglobin stable at 11.6. Platelet count 209,000. Sodium 144, potassium 4.4, chloride 97, CO2 is 31, BUN 12, creatinine 0.49. Calcium 8.5 with an albumin of 3.4. Magnesium normal at 2. Total bilirubin, transaminases, and alk phos all normal. TSH at 2.35, which is normal. Venous Doppler study shows no DVT within either lower extremity. The chest x-ray shows prominent pulmonary vasculature. Elevation of the right hemidiaphragm. CT scan of the chest shows some small pulmonary nodules, the largest being 11 mm. There is increased pulmonary vascularity. No evidence of pulmonary emboli in the major pulmonary vessels, but some areas of distal emboli versus artifact cannot be excluded due to heterogeneous filling of the main branches of the pulmonary artery. ASSESSMENT: 1. Acute on chronic hypercarbic respiratory failure. Almost undoubtedly has COPD and pulmonary arterial hypertension. Accounts for the swelling in his abdominal wall, pelvis, scrotum, and lower extremities. He wears a CPAP at night apparently, stating that it initially was set at 18 but more recently with gastric bypass surgery he has dropped his weight a few hundred pounds and CPAP has been decreased from 18 to 12. It sounds like he wears what sounds like nasal trumpets. 2. Lethargy almost undoubtedly due to his elevated CO2. Will move down to the progressive care unit, start BiPAP, and monitor for change within 30-60 minutes given that he is somewhat high risk for failure given the CO2 of 102 and a pH of 7.23. However, with some stimulation he seemed to break up a little bit. Will watch him for a half hour and obtain gases at that point to reevaluate his situation. Upon institution of BPAP at a rate of 16, with the patient breathing 23, pressure of 18/6, O2 sats were in the high 90s. Patient awoke. Did not particularly like the mask and took it off. Saturations dropped to 69 before we could implore the patient to put the mask back on. Will try to find trumpets. However, he had a markedly good response to the BiPAP. His response was so quick that I do not really think we need repeat gases as, as long as he is awake and alert we are fine. Can watch him for a while, get things stable, and as long as he is cooperative we should not have a problem. RT seeing if we have some nasal trumpets as his tidal volumes are running 600 or 700. Probably can decrease the inspiratory pressure at maybe 12-14, watch his, tidal volume, and see how he does symptomatically. TIME: Time spent so far in critical care is 67 minutes.
--- NOTE | 2016-11-03 19:49 | CONS ---
[address] [address] CONSULTATION REPORT PATIENT: JOSR FONTENOT : 1945 MR#: [id number] ADMIT: 11/02/2016 JOB ID: [id number] DATE OF SERVICE: 11/03/[address] Carrillo for this timely consult. REASON FOR CONSULTATION: Possible scrotal cellulitis. HISTORY OF THE PRESENT ILLNESS: The patient is an unfortunate, 70-year-old, [employer] of [employer] [place] [employer], who was followed by the [facility]. He was at the [facility] yesterday being evaluated for scrotal swelling as well as swelling in his lower extremities that had come on over a period of days. While he was at the [facility], it was noted he was quite hypoxic with an O2 sat in the low 80s. and additional history revealed that the patient was complaining of increasing dyspnea with exertion. It was also noted as part of his evaluation that he was in AFib which apparently is a new discovery, and because of the hypoxia and worsening dyspnea with minimal exertion and AFib, he was referred to this facility and admitted yesterday. The patient is from extraordinarily high levels of CO2 and just while we were evaluating the patient, the blood gas has come back showing a pCO2 greater than 100. Because of this ongoing hypoventilation, the patient is quite lethargic and it is a bit difficult to get a history, but when we can keep him awake enough, he is able to tell us that over the past few days to weeks, he has had progressive swelling of his lower extremities, as well as his scrotum and lower abdomen, in fact. All this has limited his lifestyle and mobility. He denies recent fevers, chills, or sweats and has no particular new pulmonary symptoms, though he is always somewhat short of breath. He admits to us that though he is supposed to have quit smoking, he still smokes some cigarettes from time to time. He also implies that he is not rigorous in the use of his 12-year-old CPAP mask. The patient states his scrotum is uncomfortable because it is so swollen, but it is not especially tender to touch and does not feel warm or painful without movement. The same is true of his lower extremities which are becoming more red and swollen but are not especially painful. PAST MEDICAL HISTORY: 1. Morbid obesity with history of gastric bypass when he weighed over 500 pounds. It is worth noting that, at this point, he weighs just a little shy of 400 pounds, so his gastric bypass was not completely successful. 2. COPD. 3. Obstructive sleep apnea. 4. Anasarca with venous insufficiency, lower extremities. 5. BPH. 6. Chronic left lower extremity wound for which he is followed in our wound clinic. SOCIAL HISTORY: The patient served four years in the [employer], including time on the ground in [place]. He was a heavy smoker, now minimal smoker, but does still smoke, and sounds like a few cigarettes a day. He denies the use of alcohol at this time. He lives alone in the local area and gets care through the [facility]. FAMILY HISTORY: Family history really could not be obtained as the patient was too lethargic to answer the question. REVIEW OF SYSTEMS: Was also spotty but we do know the patient has no fevers, chills, sweats, or headache. He reports no sore throat. No significant cough or pleuritic chest pain, but he is always short of breath and more so lately, especially with exertion. He has swelling of his abdomen, especially his lower abdomen, but this is not especially painful. He tells us that he has been able to eat and drink and denies diarrhea. He is attempting to void into a urinal as needed, but it appears that he is missing some of the time and the folds between his pannus and his thigh are a problem in terms of keeping them dry. Patient [facility] and care of his left lower extremity, which is currently wrapped. Remainder of the review of systems either could not be obtained or was noncontributory. PHYSICAL EXAMINATION: Reveals a morbidly obese gentleman. Height 183 cm, weight 164 kg. BMI exactly 50. He is lying semi-recumbent in his hospital bed. He looks considerably older than his stated age of 70 and his dentures are sort of rolling around and ill-fitting in his mouth. He is lethargic but can be roused and is obviously oriented when aroused and able to answer a few questions before he drifts off. He has been afebrile since admission yesterday afternoon. Current temp 36.6, pulse 83, respiratory rate 18, blood pressure 135/76. He is saturating well right now on 3 L, but his blood gas shows a pCO2 of 102, pO2 approximately 71, and his pH 7.23. Examination of the head reveals no evidence of trauma. The eyes are without conjunctivitis or scleral change. Oral cavity with the ill-fitting dentures. No herpetic lesions or thrush are noted, but it is difficult exam. His neck is quite thick but no palpable abnormalities. Lungs: Poor excursion bilaterally but relatively clear. Cardiac tones: Irregular rate and rhythm. No significant murmur is appreciated. The abdomen is quite obese, and the lower portion of the abdomen consists of a large pannus which overhangs his groin. The pannus is diffusely erythematous but nontender and there is no bullae or skin breakdown. His inguinal folds are erythematous as is his swollen scrotum, but none of this area is warm, nor is it tender, but it is quite erythematous and looks irritated, perhaps from sweat as well as urine. His lower extremities are both edematous with very noted venous stasis changes below the knees and chronic almost lichenification of the skin on the right where it is visible. The left leg is wrapped in a large complex dressing applied by the wound management team, and we did not remove it due to his ongoing respiratory difficulties. The patient is neurologically intact and we can see him move all four extremities, but he is really not awake enough to follow through with any sort of neurologic exam. No bullae or skin breakdown are appreciated anywhere on the multiple areas of abnormal skin on his pannus, thighs, scrotum, and lower extremities below the knee. Remainder of the physical either cannot be performed because of his current respiratory issues and obesity or was normal. LABORATORIES: Include white count 8300 twice, yesterday and today. Diff relatively normal. Creatinine 0.49. LFTs normal. Procalcitonin has not been done. Albumin is 3.4. Urinalysis 6-10 white cells. Urine culture is negative. Chest x-ray shows some mild venous congestion. A chest CT was also done yesterday at the time of admission, and it shows no PE. Mildly increased pulmonary vascularity and some nonspecific nodules including one up to 11 cm. Ultrasound of the lower extremities has been done. No DVT is seen. Echocardiogram has also been done which demonstrates a reasonable left ventricular ejection fraction. The right ventricular systolic pressure is 61, consistent with severe pulmonary hypertension. IMPRESSION: At this point, I see no evidence for ongoing infection in this patient. The patient is having respiratory failure with a pCO2 over 100 now, and obviously has obtundation secondary to his respiratory failure. It seems likely that his chronic lung disease has produced right heart failure with basically anasarca and swelling of the pannus, the scrotum, the lower abdomen, and the legs bilaterally. There is considerable evidence of venous hypertension in the lower extremities but I see no evidence for ongoing infection. RECOMMENDATIONS: 1. We discussed this with the primary team and recommended they consult Pulmonary and transfer the patient to the [facility]. 2. I see no indication for antibiotics at this time. 3. It is reasonable to check hepatitis C and Strongyloides antibody in this [place] but obviously these are not going to acutely affect our plan of care. 4. This case discussed with the primary team as well as Dr. Harrington in Pulmonary. Thank you very much.
[2016-11-04] VITALS (12 sets, daily range): BP systolic 103–146; BP diastolic 63–95; PULSE 85–120; RESP 16–28; O2SAT 88–99
--- NOTE | 2016-11-04 03:18 | NUR ---
Bipap Pt refusing bipap at 0300, demanding that mask be removed. Pt placed on 7L NC sitting up in bed, drowsy. Sats remain at 94% at this time, with RR of 25.
--- NOTE | 2016-11-04 05:11 | ABG ---
DateTimeAnalyzed 05:05:00 -_ pH ____7.297 - 7.350 7.450 pCO2 ___86.8__ -mmHg 35.0 45.0 pO2 ___66.7__ -mmHg 69.0 116 HCO3- ___41.1__ -mmol/L 22.0 26.0 ABE ___11.8__ -mmol/L -2.0 2.0 tHb ___11.7__ -g/dL O2Hb ___87.8__ -% COHb ____2.8__ -% MetHb ____1.0__ -% sO2 ___91.3__ -% 25.0 FIO2 ___35.0__ -% Drawn By MK - Date/Time Notified____ 05:10:00 -_ Spontaneous_RR ___24.0__ -b/min Liter_Flow ____4.0__ -L/min Oxygen Device 1 __CANNULA - Notified By MK - Notified Whom VINITA, RN - B 755 -mmHg tO2 ___14.5__ -Vol% Juan test _Positive -
[2016-11-04 06:54] LABS: BASOPHILS % (AUTO) 0.2 % (0-3)
[2016-11-04 07:15] LABS: EOSINOPHILS % (AUTO) 0.1 % (0-5); MONOCYTES % (AUTO) 9.3 % (4-12); Mean Corpuscular Hemoglobin 24.5 pg (27.0-35.0); Mean Corpuscular Volume 86.9 fL (81-100); NEUTROPHILS % (AUTO) 80.9 % (40-74); Platelet Count 224 bil/L (150-400)
--- NOTE | 2016-11-04 08:02 | PCM.PNMED ---
Subjective Date of Service Nov 04, 2016 Subjective Patient is very somnolent on BiPAP. He denies any pain and states he is getting enough air. He is able to report much else because of somnolence and being on BiPAP. Exam Vital Signs Vital Sign - Last Date Time Temp Pulse Resp B/P Pulse Ox O2 Delivery O2 Flow Rate FiO2 11/04/16 05:18 36.8 120 28 145/95 88 Nasal Cannula 4.00 28 Intake and Output 11/03/16 11/03/16 11/04/16 Cumulative From/Thru 15:00 23:00 07:00 11/02/16 15:11 - 11/04/16 06:28 Intake Total 480 ml 1507 ml 2364 ml Output Total 400 ml 475 ml 2875 ml Balance 80 ml 1032 ml -511 ml Intake Oral 480 ml 800 ml 1580 ml IV Total 707 ml 784 ml Output Urine Total 400 ml 475 ml 2875 ml Exam Morbidly obese. Somnolent. On BiPAP. Anicteric sclera. Lungs are clear with good air movement. He is overbreathing rate of 18 and about 27. Alkaline phosphatase 550. He is 714/6 with an FiO2 of 0.4. Heart is irregular without murmur gallop or rub. Abdomen is distended but nontender Extremities no gross edema which is chronic venous stasis changes. Left lower extremity is wrapped from the ankle to just below the knee. Speech is fluent and slow. IVs and Medications Medications Reviewed: Medications were reviewed in detail Lab and Diagnostics Result Diagram: 11/04/16 0635 11/04/16 0635 Microbiology Urine specimen sent for culture X-Rays, CTs and MRIs Portable chest x-ray performed 11/02/2016 IMPRESSION: Increased pulmonary vascularity suggesting of edema. There is blunting of the right costophrenic angle which could represent focal edema or nodular opacity. Recommend followup to document resolution. CT angiogram chest, performed 11/02/2016 IMPRESSION: 1. No visualized embolism within the main pulmonary branches. Distal branches are heterogeneous in appearance secondary to technique. Small areas of distal emboli versus artifact cannot be excluded. 2. Mild appearance of pulmonary vascularity. 3. Nonspecific nodules bilaterally, the largest measuring 11 mm. No priors are available for comparison. Recommend interval followup as below. 12-lead ECG Heart rate 102, atrial fibrillation, no signs of acute infarct or ischemia. Left ventricular hypertrophy without strain. Assessment & Plan 70-year-old male found to be hypoxic, believed to have CHF, COPD, venous hypertension, presumed to have CHF exacerbation. Treated with IV furosemide, and states feeling better following treatment. Patient is a very poor historian , unable to state what medications he is on, or previous diagnoses, or what the medications he is taking them for. Awaiting records from the [place], request has been faxed. #1 acute hypoxic and hypercarbic respiratory failure, present on admission, improving Found to have oxygen saturation in the low 80%'s in the outpatient setting, confirmed in the emergency department, most likely due to congestive heart failure exacerbation and superimposed COPD. Did not take his furosemide before presentation. CT chest angiogram showed possible small areas of distal emboli or artifact. -Anion gap 11 initially, increased to 16 today -Serum Bicarbonate 33 originally but improved to 31 this morning -Peripheral O2 saturation is responded to nasal cannula. -Treatment as below per precipitating conditions -US bilateral duplex, negative for DVT. After reviewing CT angiogram, doubt pulmonary embolism. Will treat this as probable COPD and diastolic heart failure with secondary acute respiratory failure. #2 Acute on Chronic diastolic heart failure, present on admission, improving Presumably caused by Chronic uncontrolled hypertension, new onset atrial fibrillation and resultant new cardiac insufficiency. Evidenced by dyspnea on exertion, lower extremity edema. -Lipid panel showed low HDL of 37 -CXR evidence of fluid overload -Daily Weights I&Os. -Furosemide 40 mg IV once daily for fluid diuresis -Start Lisinopril 2.5mg HS. -Repeat CXR ordered for this morning -ECHO ORDERED - this reveals normal ventricular function and severe pulmonary hypertension. #3 acute new onset Atrial fibrillation, present on admission, treatment initiated. Patient is asymptomatic, chronicity unknown. Without outpatient records assuming this to be new atrial fibrillation, he denies recalling ever being told he has Afib, nor do his medication list reflects the anticipated medications for treatment. -Umogp5Emyn: 4 and Has-bled score: 2 -EKG as documented, echo as above -Heart rate increased to 110's, he was given a diltiazem IV PUSH to control rate. Watch heart rate carefully, heart rate documented earlier was in the 50s , asymptomatic. -TSH plus T4 within normal limits -Anticoagulation, heparin Drip, with goal to bridge to warfarin, at this time given unknown chronicity: Consider CATE to rule out left atrial thrombus, patient has chronic wound to left lower extremity, may post bleeding risk. Given non-compliance concern regarding discharge with chronic anti-coagulation. However, will likely need to discharge the patient on warfarin due to cost benefit. -Antiplatelet with 81 mg aspirin -Patient placed on telemetry -Cardiology consultation as above -Started metoprolol tartrate 12.5 mg twice per day and will monitor patient's heart rate and if stable, will switch to metoprolol succinate 25 mg once daily Will bridge heparin to anticoagulation given chads score. #4 Acute exacerbation of COPD. Present on admission, treatment ongoing -Duoneb q4h when necessary for shortness of breath or abrupt drop in O2 saturation. -Albuterol q2h PRN -O2 supplementation with Nasal Canula at this time. Goal of 88-92% given presumed chronic nature. We will add IV Solu-Medrol. #5 Scrotal edema and erythema. Present on admission. Active. This is all related to his severe right heart failure. At this point the patient will be diuresed. Infectious disease does not believe there is Cellulitis of the scrotum or legs. -Urology consulted and will see patient tomorrow. #6 Hypertension, uncontrolled, present on admission. We will titrate up metoprolol and lisinopril at this point. This will serve for blood pressure as well as rate control. #7 Chronic lower extremity wounds Stable. Evaluated earlier yesterday and redressed at wound care. -We will monitor while inpatient, next appointment at wound care is . -Wound care consultation ordered #8 Chronic Obstructive sleep apnea, present on admission, stable Resume outpatient CPAP. After the patient's treatment for his acute hypercarbic respiratory failure with BiPAP. #9 Most likely chronic Tinea cruris + Tinea corpus, present on admission, treatment initiated -Found on physical exam, not being treated as an outpatient, -Nystatin twice a day apply to affected areas. -Wound care and infectious disease consulted. Their time and recommendations are appreciated. -HgbA1c pending #10 Chronic Tobacco abuse, present on admission, education given. -Nicotine patches for tobacco withdrawal -Discussed the benefits of quitting smoking, however relates to current condition. #11. Morbid obesity Pain Evaluation: Adequate Pain Control GI Prophylaxis: Not indicated VTE Prophylaxis: Sub-Q Heparin (Unfractionated) VTE Mechanical Devices: Venous Foot Pump Resuscitation Status: Limited Interventions (NO COMPRESSION/CPR/DEFIB. INTUBATION/BIPAP OKAY) Time spent 30 minutes Juan Aceves MD Nov 04, 2016 08:02
[2016-11-04] MEDS: Nystatin 100,000 Unit/Gm 15 Gm Powder TOPICAL SCH ×2 (09:53→21:07)
[2016-11-04] MEDS: Furosemide 10 mg/mL 4 mL Inj IVPUSH SCH ×2 (09:53→21:06)
[2016-11-04] MEDS: predniSONE 20 mg Tablet PO SCH (09:54)
--- NOTE | 2016-11-04 10:24 | DRSVH ---
PROCEDURE: X-RAY CHEST ONE VIEW, PORTABLE ([id number]) INDICATIONS: Hypercarbic resp failure TECHNIQUE: One view of the chest was acquired. COMPARISON: [facility], CR, XR CHEST 1VW (PORTABLE), 11/03/2016, 11:13. FINDINGS: Surgical changes and devices: None. Lungs and pleura: No pleural effusions or pneumothorax. Pulmonary vasculature prominent mild edema not significantly changed. Medial bibasilar airspace opacities also are noted. Elevation of the righ t hemidiaphragm. Mediastinum: Mediastinal contours appear normal. Heart size is normal. Bones and chest wall: No suspicious bony lesions. Overlying soft tissues appear unremarkable. IMPRESSION: Mild venous congestion and edema similar to prior examination as well as bibasilar airspa ce opacities consistent with patchy pulmonary edema versus atelectasis or pneumonia. Dictated by: Carlos Sellers [facility] Interpreted: Radha Davis MD on 11/04/2016 at 10:21 Transcribed by: DELMI on 11/04/2016 at 10:23 Approved by: Radha Davis MD, PhD on 11/04/2016 at 17:02
--- NOTE | 2016-11-04 11:20 | PCM.PNMED ---
Subjective Date of Service Nov 04, 2016 Subjective Pulmonology Consult progress note: Attending physician Dr. Harrington. Requesting provider Dr. Carrillo. Reason for consult Somnolence and Hypercapnia. HISTORY OF PRESENT ILLNESS: Mr Webster is 70 year old male with PMH of CHF, COPD, morbid obesity and presumed sleep apnea (uses CPAP at home). He was admitted from the [place] clinic secondary to scrotal swelling. Pulmonology consult requested secondary to increased somnolence with decreased O2 saturation levels and ABG showing hypercapnia. Overnight: Pt took off his BiPAP and refused to continue to wear it overnight stating that he does not need it and won't wear it any longer. He spent the rest of the night with 7LO2 NC in place, reportedly satting in the mid 90's with qa RR of 25. This am his ABG showed pH of 7.23, pCO2 of 102. Pt still endorses feeling very well overall and does not feel it nessisary to be in the hospital, he is arousable to voice and mentates appropriately. Exam Vital Signs Vital Sign - Last Date Time Temp Pulse Resp B/P Pulse Ox O2 Delivery O2 Flow Rate FiO2 11/04/16 10:49 114 11/04/16 10:44 Supplement Oxygen CPAP/BIPAP 11/04/16 09:35 28 96 35 11/04/16 08:30 36.9 146/95 11/04/16 05:18 4.00 Intake and Output 11/03/16 11/03/16 11/04/16 Cumulative From/Thru 15:00 23:00 07:00 11/02/16 15:11 - 11/04/16 06:28 Intake Total 480 ml 1507 ml 2364 ml Output Total 400 ml 475 ml 2875 ml Balance 80 ml 1032 ml -511 ml Intake Oral 480 ml 800 ml 1580 ml IV Total 707 ml 784 ml Output Urine Total 400 ml 475 ml 2875 ml Exam General: Morbidly obese man, laying in bed, no apparent distress. Disheveled, somnolent but arousable. mentating appropriately. HEENT: Normocephalic, atraumatic, EOMI grossly, mucous membranes dry BiPAP in place. Cardiovascular: Irregularly irregular, Tachycardic rate. No skips gallops or murmurs.Difficult to appreciate secondary to body habitus and BiPAP Pulmonary: Continue to be somewhat diminished. Expiratory wheezing appreciated in his upper anterior lobes. Abdominal: Morbidly obese, soft to palpation. Extremities: Severe bilateral edema, Left Calf and ankle with much smaller circumference, right lower extremity dark red to purple pigmentation. : Edema and erythema of scrotum. Neuro: Neurologically grossly intact. IVs and Medications Medications Reviewed: Medications were reviewed in detail Lab and Diagnostics Result Diagram: 11/04/16 0635 11/04/16 0635 Microbiology Urine specimen sent for culture X-Rays, CTs and MRIs . X-RAY CHEST ONE VIEW, PORTABLE 11/02/2016 IMPRESSION: Increased pulmonary vascularity suggesting of edema. There is blunting of the right costophrenic angle which could represent focal edema or nodular opacity. Recommend followup to document resolution. X-RAY CHEST ONE VIEW, PORTABLE 11/03/2016 IMPRESSION: Mild venous congestion redemonstrated. Of note, small nodules seen on prior CT scan not well visualized by plain film. X-RAY CHEST ONE VIEW, PORTABLE 11/04/2016 IMPRESSION: Mild venous congestion and edema similar to prior examination as well as bibasilar airspace opacities consistent with patchy pulmonary edema versus atelectasis or pneumonia. CT ANGIO CHEST PULMONARY EMBOLISM 11/02/2016 IMPRESSION: 1. No visualized embolism within the main pulmonary branches. Distal branches are heterogeneous in appearance secondary to technique. Small areas of distal emboli versus artifact cannot be excluded. 2. Mild appearance of pulmonary vascularity. 3. Nonspecific nodules bilaterally, the largest measuring 11 mm. No priors are available for comparison. Recommend interval followup as below. US VENOUS LEG DUPLEX BILATERAL 11/03/2016 IMPRESSION: Limited study demonstrating no deep venous thrombosis within either the left or right lower extremities. 12-lead ECG Heart rate 102, atrial fibrillation, no signs of acute infarct or ischemia. Left ventricular hypertrophy without strain. Cardiac Echo Impressions . Echocardiogram Report Interpretation Summary: Atrial fibrillation with heart rates between 79-116 bpm during the exam. Mild concentric left ventricular hypertrophy with ejection fraction 65-70%. Moderately dilated both atria. Mild tricuspid regurgitation. The right ventricular systolic pressure is estimated at 61 mmHg assuming a right atrial pressure of 8 mm Hg. Moderate-severe pulmonary hypertension. Moderately enlarged ascending aorta. Assessment & Plan 70-year-old male past medical history CHF, COPD, pulmonary consult secondary to increased somnolence and hypercarbic respiratory failure. 1. Acute on chronic hypercarbic respiratory failure. Possibly secondary to obesity hypoventilation syndrome, with underlying pulmonary arterial hypertension, COPD and CHF. Echocardiogram showed a right ventricular systolic pressure at 61 mmHg which suggest pulmonary hypertension. Though he denies carrying any medical diagnosis he most likely has COPD as home meds reportedly include tiotropium bromide and albuterol. He also states he has been using CPAP for the last 12 years. ABG showed CO2 of 102 and a pH of 7.23. - Patient transferred to [facility] started on BiPAP with immediate improvement of mentation and O2 saturation. BiPAP started rate of 16 with maintenance of O2 saturations in high 90s. Though after improvement in mentation patient demanded that mask be left off so he could speak with physicians and nursing staff was finally convinced to put the mask back on. Repeat gases were DC'd secondary to immediate resolution of symptoms. And has continued to mentate appropriately. - ABGs 11/04/2016 0500 showed pH of 7.29, PCO2 86.8, PO2 66.7 HCO3 41.1. Most likely secondary to patient noncompliance with BiPAP mask overnight - Duonebs scheduled Q4 during the day while awake and Q2 overnight PRN. - Will continue with BiPAP as tolerated and Duonebs. GI Prophylaxis: Not indicated VTE Prophylaxis: Sub-Q Heparin (Unfractionated) VTE Mechanical Devices: Venous Foot Pump Resuscitation Status: Limited Interventions (NO COMPRESSION/CPR/DEFIB. INTUBATION/BIPAP OKAY) Attending Statement The patient was seen and examined together with Dr. Godinez on 11/04/2016 and I agree with the history, exam and plan as outlined in the note above. MIGNON GODINEZ DO Nov 04, 2016 11:20 Jose Harrington MD Nov 15, 2016 10:40 MIGNON GODINEZ DO Nov 04, 2016 11:20 and see how he does symptomatically. TIME: Time spent so far in critical care is 67 minutes. GI Prophylaxis: Not indicated VTE Prophylaxis: Sub-Q Heparin (Unfractionated) VTE Mechanical Devices: Venous Foot Pump Resuscitation Status: Limited Interventions (NO COMPRESSION/CPR/DEFIB. INTUBATION/BIPAP OKAY) MIGNON GODINEZ DO Nov 04, 2016 11:20 -Nystatin twice a day apply to affected areas. -Wound care and infectious disease consulted. Their time and recommendations are appreciated. -HgbA1c pending #10 Chronic Tobacco abuse, present on admission, education given. -Nicotine patches for tobacco withdrawal -Discussed the benefits of quitting smoking, however relates to current condition. #11. Morbid obesity GI Prophylaxis: Not indicated VTE Prophylaxis: Sub-Q Heparin (Unfractionated) VTE Mechanical Devices: Venous Foot Pump Resuscitation Status: Limited Interventions (NO COMPRESSION/CPR/DEFIB. INTUBATION/BIPAP OKAY) MIGNON GODINEZ DO Nov 04, 2016 11:20
--- NOTE | 2016-11-04 11:24 | PROG NOTE ---
[address] [address] PROGRESS NOTE PATIENT: JOSR FONTENOT : 1945 MR#: [id number] ADMIT: 11/02/2016 JOB ID: [id number] DATE: 11/04/2016 INFECTIOUS DISEASE FOLLOW UP NOTE: REASON FOR FOLLOWUP: Possible scrotal cellulitis with venous stasis changes. INTERVAL HISTORY: Yesterday when we first encountered the patient his pCO2 was over 100, and for that reason, he was transferred down to [facility]. He has been receiving CPAP as well as nasal oxygen and his mental status is dramatically better. This morning, he says he has no fevers or chills. His shortness of breath has diminished and overall he is feeling better. He still is having a great deal of trouble urinating and urology consult has been requested for later today. He has, as noted, no fever, no chills. He notes that the tenderness and redness around his scrotum is actually improved overnight. PHYSICAL EXAMINATION: Reveals an afebrile gentleman, temperature 36.9, pulse 110, respiratory rate in the 20s, blood pressure 146/95, saturating right now on nasal prongs fairly well though he has been on BiPAP over the night. The patient's mental status is much improved as noted. His lungs are notable for decreased breath sounds bilaterally but without a lot of rales or rhonchi. Cardiac tones reveal an ongoing tachycardia. His abdomen is obese, soft and nontender. The erythema involving the lower pannus, the inguinal fold area and the scrotum in particular is all much improved overnight though it still has an erythematous cast to it. LABORATORIES: Include a white count today 11,000 but he is on steroids. Creatinine 0.45. LFTs are normal. Hep C antibody and Strongyloides are pending. Urine grew mixed tushar. Chest x-ray done today shows mild venous congestion similar to prior and some airspace opacities consistent with atelectasis or pneumonia. IMPRESSION: I see no evidence for scrotal cellulitis or any other infection in this gentleman at this time. He has improved with the CPAP treatment for his underlying respiratory failure. I suspect that what we are seeing in the lower pannus, groin and scrotal area is a venous congestion with basically anasarca secondary to right heart failure and made worse by urine on the scrotum and adjacent tissues. RECOMMENDATIONS: 1. I agree with the plan at least temporarily for a North catheter and urology evaluation. 2. I see no indication for antibiotics at this time. 3. The hep C and Strongyloides antibody should be followed up. 4. ID will go ahead and sign off as I see no active issues in this gentleman.
[2016-11-04] MEDS: Heparin 25K Unit/500mL 0.45 NS 25,000 UNIT in IV Premix 1 EACH IV SCH (14:18)
--- NOTE | 2016-11-04 14:33 | PCM.PNSURG ---
Subjective Date of Service: Nov 04, 2016 Date of Service: Nov 04, 2016 Visit Information: Reason for Visit Hypoxia,New Onset Afib,Chf Date of Admission: Nov 02, 2016 at 19:47 Hospital Day # Objective Vital Sign- Last 8 Hours Date Time Temp Pulse Resp B/P Pulse Ox O2 Delivery O2 Flow Rate FiO2 11/04/16 11:36 36.5 104 22 125/76 96 BiPAP 11/04/16 10:49 114 11/04/16 10:44 Supplement Oxygen CPAP/BIPAP 11/04/16 09:35 105 28 96 35 11/04/16 08:30 36.9 88 22 146/95 93 BiPAP Intake and Output- Last 8 Hour 11/04/16 Cumulative From/Thru 07:00 11/02/16 15:11 - 11/04/16 06:28 Intake Total 1507 ml 2364 ml Output Total 475 ml 2875 ml Balance 1032 ml -511 ml Intake Oral 800 ml 1580 ml IV Total 707 ml 784 ml Output Urine Total 475 ml 2875 ml General: Other (Obese disheveled male, supine and somnolent, no apparent distress. ) Heart: No Murmurs/Rubs/Gallops, Other (Irregularly Irregular) Abdomen: Soft, Non-tender, Non-distended, Normoactive bowel tones, Other ( erythema to pannus, : diffuse scrotal erythema and edema, unable to fully retract foreskin to reveal glans penis ) Extremities: Other (BLE edema, surgical bandage to LLE, no ulcers noted on exam however hyperpigmentation to RLE, venous stasis pigmentation) Neuro: Grossly Neurologically Intact Result Diagram: 11/04/16 0635 11/04/16 0635 Lab & Micro Results: Final urine culture Mixed urogenital tushar Assessment & Plan Impression is a 70YOM with PMH significant for CHF and COPD, who was admitted from the [place] clinic on 11/02/16 for scrotal swelling, increased somnolence, and hypercarbic respiratory failure. 1) Scrotal Swelling- ID evaluated pt and ruled out scrotal cellulitis. Scrotal edema likely related to CHF exacerbation, erythema likely irritation from urine on the scrotum. Scrotal swelling will likely resolve over time with continued diuretics. Unable to visualize glans penis due to edema and phimosis, however pt has been voiding without difficulty, PVR 300mL. If PVR's >500mL can place indwelling boyle, otherwise not indicated at this time. 2) UA- Final culture mixed urogenital tushar. No indication for antibiotics at this time. 3) BPH- Pt is a poor historian but there does seem to be a h/o BPH, home medications include alfuzosin. He should continue on Tamsulosin 0.4mg qhs, if indicated can increase this to 0.8mg qhs. We will continue to monitor patient during hospitalization as needed, but will follow up and address BPH as an outpatient. Problems: VTE Prophylaxis: Sub-Q Heparin (Unfractionated) Resuscitation Status: Limited Interventions (NO COMPRESSION/CPR/DEFIB. INTUBATION/BIPAP OKAY) Sabrina Espinal PA-C Nov 04, 2016 13:50
[2016-11-04] MEDS: Albuterol-Ipratropium 3 mL Inhalation Solution NEB SCH ×2 (15:30→20:25)
[2016-11-04] MEDS: Heparin 5,000 Unit/mL Inj IVPUSH PRN (15:52)
[2016-11-04] MEDS ORDERED: Albuterol-Ipratropium 3 mL Inhalation Solution NEB PRN (16:30)
--- NOTE | 2016-11-04 18:16 | ABG ---
DateTimeAnalyzed 18:09:00 -_ pH ____7.277 - 7.350 7.450 pCO2 ___96.9__ -mmHg 35.0 45.0 pO2 ___68.7__ -mmHg 69.0 116 HCO3- ___43.8__ -mmol/L 22.0 26.0 ABE ___13.6__ -mmol/L -2.0 2.0 tHb ___11.5__ -g/dL O2Hb ___89.6__ -% COHb ____2.2__ -% MetHb ____1.0__ -% sO2 ___92.6__ -% 25.0 FIO2 ___45.0__ -% Pressure_Support ___14.0__ -cmH2O PEEP ____6.0__ -cmH2O Set_RR ___18.0__ -b/min Drawn By gj - Date/Time Notified____ 18:15:00 -_ Spontaneous_RR ___22.0__ -b/min Oxygen Device 1 ____BIPAP - Notified By GJ - Notified Whom DR LOUANN - B 751 -mmHg tO2 ___14.6__ -Vol% Juan test _Positive -
--- NOTE | 2016-11-04 18:23 | NUR ---
Bipap/O2/HR/Urology The pt was agreeable to staying on bipap for the entire shift, only coming off to eat. The pt slept for most of the shift, and reports that he's "starting to feel better". The current bipap settings are 14/6 and 45%, which is keeping sats in the low 90's. Q4 nebs have been ordered with good results. The pt continues to have HR elevations into the 120's with exertion. Urology has requested post void bladder scans, and if there is >500mL post void residual, nursing should attempt a boyle placement.
[2016-11-05] VITALS (11 sets, daily range): BP systolic 86–130; BP diastolic 48–76; PULSE 97–109; RESP 14–23; O2SAT 86–99
--- NOTE | 2016-11-05 01:53 | NUR ---
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 Pt was on BiPAP @ 45% throughout the night, pt became more alert and was able to carry on a conversation with nursing staff. Pt stated he feel like he has finally "woke up" out of the haze he has been in. Pt on a cardiac heparin drip, pt had a PTT of 50.2, drip increased by 25 units/hr to 1750 units/hr. PTT to be drawn @ 0300.
[2016-11-05] MEDS: Heparin 5,000 Unit/mL Inj IVPUSH PRN (04:43)
[2016-11-05] MEDS: Heparin 25K Unit/500mL 0.45 NS 25,000 UNIT in IV Premix 1 EACH IV SCH ×2 (05:11→19:27)
[2016-11-05] MEDS: Nystatin 100,000 Unit/Gm 15 Gm Powder TOPICAL SCH ×2 (08:05→20:30)
[2016-11-05] MEDS: predniSONE 20 mg Tablet PO SCH (08:05)
[2016-11-05] MEDS: Furosemide 10 mg/mL 4 mL Inj IVPUSH SCH ×2 (08:06→19:46)
[2016-11-05] MEDS: Albuterol-Ipratropium 3 mL Inhalation Solution NEB SCH ×4 (08:07→20:40)
--- NOTE | 2016-11-05 10:31 | PCM.PNMED ---
Subjective Date of Service Nov 05, 2016 Subjective Pulmonology Consult progress note: Attending physician Dr. Harrington. Requesting provider Dr. Carrillo. Reason for consult Somnolence and Hypercapnia. HISTORY OF PRESENT ILLNESS: Mr Webster is 70 year old male with PMH of CHF, COPD, morbid obesity and presumed sleep apnea (uses CPAP at home). He was admitted from the [place] clinic secondary to scrotal swelling. Pulmonology consult requested secondary to increased somnolence with decreased O2 saturation levels and ABG showing hypercapnia. Overnight: Pt remained on BiPAP overnight and states that he is feeling better. Stating to nursing that he has finally "woke up" out of the haze he has been in. Exam Vital Signs Vital Sign - Last Date Time Temp Pulse Resp B/P Pulse Ox O2 Delivery O2 Flow Rate FiO2 11/05/16 08:44 Supplement Oxygen CPAP/BIPAP 11/05/16 08:00 36.8 107 20 97/64 86 4.00 11/05/16 04:46 45 Intake and Output 11/04/16 11/04/16 11/05/16 Cumulative From/Thru 15:00 23:00 07:00 11/02/16 15:11 - 11/05/16 06:30 Intake Total 1034 ml 876 ml 4274 ml Output Total 1300 ml 1575 ml 5750 ml Balance -266 ml -699 ml -1476 ml Intake Oral 650 ml 476 ml 2706 ml IV Total 384 ml 400 ml 1568 ml Output Urine Total 1300 ml 1575 ml 5750 ml Exam General: Morbidly obese man, laying in bed, no apparent distress. Awake and alert with NC in place mentating appropriately. HEENT: Normocephalic, atraumatic, EOMI grossly, mucous membranes dry. Edentulous. Cardiovascular: Irregularly irregular, Tachycardic rate. No skips gallops or murmurs. Pulmonary: Continue to be somewhat diminished. Expiratory wheezing appreciated in his upper anterior lobes, much improved from yesterday. Abdominal: Morbidly obese, soft to palpation. Anasarca. Extremities: Severe bilateral edema, Left Calf and ankle with bandage in place. Right lower extremity dark red to purple pigmentation. Neuro: Neurologically grossly intact. IVs and Medications Medications Reviewed: Medications were reviewed in detail Lab and Diagnostics Result Diagram: 11/04/1635 11/04/16634 Microbiology Urine specimen sent for culture X-Rays, CTs and MRIs . X-RAY CHEST ONE VIEW, PORTABLE 11/02/2016 IMPRESSION: Increased pulmonary vascularity suggesting of edema. There is blunting of the right costophrenic angle which could represent focal edema or nodular opacity. Recommend followup to document resolution. X-RAY CHEST ONE VIEW, PORTABLE 11/03/2016 IMPRESSION: Mild venous congestion redemonstrated. Of note, small nodules seen on prior CT scan not well visualized by plain film. X-RAY CHEST ONE VIEW, PORTABLE 11/04/2016 IMPRESSION: Mild venous congestion and edema similar to prior examination as well as bibasilar airspace opacities consistent with patchy pulmonary edema versus atelectasis or pneumonia. CT ANGIO CHEST PULMONARY EMBOLISM 11/02/2016 IMPRESSION: 1. No visualized embolism within the main pulmonary branches. Distal branches are heterogeneous in appearance secondary to technique. Small areas of distal emboli versus artifact cannot be excluded. 2. Mild appearance of pulmonary vascularity. 3. Nonspecific nodules bilaterally, the largest measuring 11 mm. No priors are available for comparison. Recommend interval followup as below. US VENOUS LEG DUPLEX BILATERAL 11/03/2016 IMPRESSION: Limited study demonstrating no deep venous thrombosis within either the left or right lower extremities. 12-lead ECG Heart rate 102, atrial fibrillation, no signs of acute infarct or ischemia. Left ventricular hypertrophy without strain. Cardiac Echo Impressions . Echocardiogram Report Interpretation Summary: Atrial fibrillation with heart rates between 79-116 bpm during the exam. Mild concentric left ventricular hypertrophy with ejection fraction 65-70%. Moderately dilated both atria. Mild tricuspid regurgitation. The right ventricular systolic pressure is estimated at 61 mmHg assuming a right atrial pressure of 8 mm Hg. Moderate-severe pulmonary hypertension. Moderately enlarged ascending aorta. Assessment & Plan 70-year-old male past medical history CHF, COPD, pulmonary consult secondary to increased somnolence and hypercarbic respiratory failure. 1. Acute on chronic hypercarbic respiratory failure. Possibly secondary to obesity hypoventilation syndrome, with underlying pulmonary arterial hypertension, COPD and CHF. Echocardiogram showed a right ventricular systolic pressure at 61 mmHg which suggest pulmonary hypertension. Though he denies carrying any medical diagnosis he most likely has COPD as home meds reportedly include tiotropium bromide and albuterol. He also states he has been using CPAP for the last 12 years. Initial ABG showed CO2 of 102 and a pH of 7.23. - Patient transferred to [facility] started on BiPAP with immediate improvement of mentation and O2 saturation. BiPAP started rate of 16 with maintenance of O2 saturations in high 90s. Though after improvement in mentation patient demanded that mask be left off so he could speak with physicians and nursing staff was finally convinced to put the mask back on. Repeat gases were DC'd secondary to immediate resolution of symptoms. And has continued to mentate appropriately. - ABGs 11/04/2016 1800 showed pH of 7.27, PCO2 96.9, PO2 68.7 HCO3 43.8. - BiPAP volume increased overnight with much improvement in Pt's mentation. - Duonebs scheduled Q4 during the day while awake and Q2 overnight PRN. - Will continue with BiPAP and Duonebs. GI Prophylaxis: Not indicated VTE Prophylaxis: Sub-Q Heparin (Unfractionated) VTE Mechanical Devices: Venous Foot Pump Resuscitation Status: Limited Interventions (NO COMPRESSION/CPR/DEFIB. INTUBATION/BIPAP OKAY) Attending Statement The patient was seen and examined together with Dr. Godinez on 11/05/2016 and I agree with the history, exam and plan as outlined in the note above. MIGNON GODINEZ DO Nov 05, 2016 10:31 Jose Harrington MD Nov 15, 2016 10:51
--- NOTE | 2016-11-05 10:42 | PCM.PNMED ---
Subjective Date of Service Nov 05, 2016 Subjective He is feeling a bit better today. He is on BiPAP most of the day yesterday and a good part of the night. Has been off for a couple hours and denies overt dyspnea. He still is nonproductive cough. He is sneezing. No chest pain. No nausea or abdominal pain. No difficulty with diarrhea. He has a North placed for scrotal edema and BPH. This is draining without difficulty. Exam Vital Signs Vital Sign - Last Date Time Temp Pulse Resp B/P Pulse Ox O2 Delivery O2 Flow Rate FiO2 11/05/16 08:44 Supplement Oxygen CPAP/BIPAP 11/05/16 08:00 36.8 107 20 97/64 86 4.00 11/05/16 04:46 45 Intake and Output 11/04/16 11/04/16 11/05/16 Cumulative From/Thru 15:00 23:00 07:00 11/02/16 15:11 - 11/05/16 06:30 Intake Total 1034 ml 876 ml 4274 ml Output Total 1300 ml 1575 ml 5750 ml Balance -266 ml -699 ml -1476 ml Intake Oral 650 ml 476 ml 2706 ml IV Total 384 ml 400 ml 1568 ml Output Urine Total 1300 ml 1575 ml 5750 ml Exam Alert and oriented 3, fluent speech. No distress. Anicteric sclera. Neck is supple Lungs are clear to normal rate and effort Heart is irregular without murmur Abdomen is distended but nontender. Extremities with 3+ edema and venous stasis changes. Left lower extremity is wrapped. Good radial pulses. IVs and Medications Medications Reviewed: Medications were reviewed in detail Lab and Diagnostics Result Diagram: 11/04/16 0635 11/04/16 0635 Microbiology Urine specimen sent for culture X-Rays, CTs and MRIs . X-RAY CHEST ONE VIEW, PORTABLE 11/02/2016 IMPRESSION: Increased pulmonary vascularity suggesting of edema. There is blunting of the right costophrenic angle which could represent focal edema or nodular opacity. Recommend followup to document resolution. X-RAY CHEST ONE VIEW, PORTABLE 11/03/2016 IMPRESSION: Mild venous congestion redemonstrated. Of note, small nodules seen on prior CT scan not well visualized by plain film. X-RAY CHEST ONE VIEW, PORTABLE 11/04/2016 IMPRESSION: Mild venous congestion and edema similar to prior examination as well as bibasilar airspace opacities consistent with patchy pulmonary edema versus atelectasis or pneumonia. CT ANGIO CHEST PULMONARY EMBOLISM 11/02/2016 IMPRESSION: 1. No visualized embolism within the main pulmonary branches. Distal branches are heterogeneous in appearance secondary to technique. Small areas of distal emboli versus artifact cannot be excluded. 2. Mild appearance of pulmonary vascularity. 3. Nonspecific nodules bilaterally, the largest measuring 11 mm. No priors are available for comparison. Recommend interval followup as below. US VENOUS LEG DUPLEX BILATERAL 11/03/2016 IMPRESSION: Limited study demonstrating no deep venous thrombosis within either the left or right lower extremities. 12-lead ECG Heart rate 102, atrial fibrillation, no signs of acute infarct or ischemia. Left ventricular hypertrophy without strain. Cardiac Echo Impressions . Echocardiogram Report Interpretation Summary: Atrial fibrillation with heart rates between 79-116 bpm during the exam. Mild concentric left ventricular hypertrophy with ejection fraction 65-70%. Moderately dilated both atria. Mild tricuspid regurgitation. The right ventricular systolic pressure is estimated at 61 mmHg assuming a right atrial pressure of 8 mm Hg. Moderate-severe pulmonary hypertension. Moderately enlarged ascending aorta. Assessment & Plan 70-year-old male found to be hypoxic, believed to have CHF, COPD, venous hypertension, presumed to have CHF exacerbation. Treated with IV furosemide, and states feeling better following treatment. Patient is a very poor historian , unable to state what medications he is on, or previous diagnoses, or what the medications he is taking them for. Awaiting records from the [place], request has been faxed.(taken from H and P text) #1 acute hypoxic and hypercarbic respiratory failure, present on admission, improving Found to have oxygen saturation in the low 80%'s in the outpatient setting, confirmed in the emergency department, most likely due to congestive heart failure exacerbation and superimposed COPD. Did not take his furosemide before presentation. CT chest angiogram showed possible small areas of distal emboli or artifact. The patient continues to improve fall being treated for COPD exacerbation. He is currently being weaned down in the amount of BiPAP support he needs. #2 Acute on Chronic diastolic heart failure (as well as right heart failure secondary to pulmonary hypertension), present on admission, improving Presumably caused by Chronic uncontrolled hypertension, new onset atrial fibrillation and resultant new cardiac insufficiency. Evidenced by dyspnea on exertion, lower extremity edema. The patient's anasarca is multifactorial with a component of pulmonary hypertension and right heart failure as well as probable left heart failure which is more diastolic in nature. The treatment plan is continue diuresis with Lasix 40 IV twice a day. The patient has impressive edema both legs and scrotal edema. #3 acute new onset Atrial fibrillation, present on admission, treatment initiated. Patient is asymptomatic, chronicity unknown. It is unclear if this is chronic atrial fibrillation are new atrial fibrillation. The patient however does meet criteria for anticoagulation. Assuming that he will be a reasonable anticoagulation candidate once he is improved from his respiratory status we would plan on beginning him on anticoagulant. At this point we will continue bridging heparin.. #4 Acute exacerbation of COPD. Present on admission, treatment ongoing -Duoneb q4h when necessary for shortness of breath or abrupt drop in O2 saturation. -Albuterol q2h PRN -Continue prednisone at 40 daily. #5 Scrotal edema and erythema. Present on admission. Active. The patient did have a North catheter placed for possible obstruction as well as difficulties with skin care excoriation secondary to his scrotal edema. At this point we will leave the catheter in for a period time. #6 Hypertension, uncontrolled, present on admission. His pressure is better controlled with the current medical regimen. Will continue to follow clinically. Pain Evaluation: Adequate Pain Control GI Prophylaxis: Not indicated VTE Prophylaxis: Sub-Q Heparin (Unfractionated) VTE Mechanical Devices: Venous Foot Pump Resuscitation Status: Limited Interventions (NO COMPRESSION/CPR/DEFIB. INTUBATION/BIPAP OKAY) Time spent 30 minutes Juan Aceves MD Nov 05, 2016 10:42
[2016-11-05 11:01] LABS: Mean Corpuscular Hemoglobin 24.3 pg (27.0-35.0); Mean Corpuscular Volume 89.6 fL (81-100)
[2016-11-05 11:09] LABS: Magnesium 2.1 mg/dL (1.6-2.6)
--- NOTE | 2016-11-05 14:47 | NUR ---
NUTRITION ASSESSMENT Assess: 70 yo M w/ Afib and acute respiratory failure, on BiPAP. Pt may require anti-coagulation. PMHx: Venous HTN, CHF, COPD, Venous insufficiency, Gastric bypass LABS: Cl 93, CO2 40, Cr 0.45, Ca 8.3 MEDICATIONS: Lasix, Lopressor, Vit B12, Prednisone, Vit D3 DIET: Heart Healthy, PO 75-100% GI symptoms/stool: No BM recorded Skin integrity: Redness, dryness, maceration; Valentín: 17 ANTHROPOMETRICS: Current Wt: 165.2 kg BMI: 49.4 kg/b1Nkcpb Wt: 167.14 kg IBW: 80.9 kg Adj BW: 102 kg Recent wt changes: None noted ESTIMATED NEEDS: BMI/COPD Calories: 6550-5488 kcal/d (30-35 kcal/kg/d Adj BW) Protein: 120-185 g/d (1.2-1.5 g/kg/d Adj BW) NUTRITION DIAGNOSIS: 1) Increased nutrient needs related to increased work of breathing as evidenced by COPD. INTERVENTION: 1) Will send Ensure BID MONITOR/EVALUATE: PO intake, Labs, Wt, Nutrition status, POC. Will follow per moderate nutrition risk guidelines.
--- NOTE | 2016-11-05 17:35 | NUR ---
Wound Care Pt seen for wound care of left calf ulcer. Dimensionally unchanged, cleaned with saline and gauze, wound stable and uninfected,rewrapped with xeroform over ulcer bed, kerlix and coban. Dressing can remain in place till follow up at the wound center on Wednesday11/09/16.
[2016-11-06] VITALS (13 sets, daily range): BP systolic 88–107; BP diastolic 46–63; PULSE 94–120; RESP 17–28; O2SAT 89–98
--- NOTE | 2016-11-06 02:31 | NUR ---
BiPAP/OXYGENATION Pt was off BiPAP most of day and shift supervisor rn. Pt on 4L NC sating high 80's - low 90's. Pt has been cooperative with care. North patent with adequate output. Pt's mentation continues to improve. Pt A&Ox3, no pain or other issue noted at this time.
[2016-11-06] MEDS: Albuterol-Ipratropium 3 mL Inhalation Solution NEB SCH ×4 (08:20→20:26)
--- NOTE | 2016-11-06 09:21 | NUR ---
NO COMPUTER ACCESS WITH FIRST ROUND NEB [place] FOR MAR
[2016-11-06] MEDS: Furosemide 10 mg/mL 4 mL Inj IVPUSH SCH ×2 (09:26→19:27)
[2016-11-06] MEDS: predniSONE 20 mg Tablet PO SCH (09:26)
[2016-11-06] MEDS: Nystatin 100,000 Unit/Gm 15 Gm Powder TOPICAL SCH ×2 (10:01→19:28)
--- NOTE | 2016-11-06 10:44 | PCM.PNMED ---
Subjective Date of Service Nov 06, 2016 Subjective He feels less short of breath and has a dry but improving cough. No chest pain. Still on 4 L of oxygen here and uses none at home. He lives at home alone. No abdominal pain. His leg edema is slightly better. His left leg is wrapped is doing well from wound care perspective. He denies palpitations. No orthopnea. Exam Vital Signs Vital Sign - Last Date Time Temp Pulse Resp B/P Pulse Ox O2 Delivery O2 Flow Rate FiO2 11/06/16 09:21 36.9 116 23 91/46 89 Nasal Cannula 4.00 11/05/16 12:00 45 Intake and Output 11/05/16 11/05/16 11/06/16 Cumulative From/Thru 14:59 22:59 06:59 11/02/16 15:11 - 11/06/16 06:37 Intake Total 1183 ml 640 ml 6097 ml Output Total 1000 ml 1200 ml 7950 ml Balance 183 ml -560 ml -1853 ml Intake Oral 800 ml 640 ml 4146 ml IV Total 383 ml 1951 ml Output Urine Total 1000 ml 1200 ml 7950 ml Exam Alert and oriented 3, fluent speech. No distress Anicteric sclera. Neck supple. Lungs are clear. Heart is irregular and slightly tachycardic. Abdomen is distended but nontender Extremities with 1-2+ edema left leg is wrapped. The radial pulses. IVs and Medications Medications Reviewed: Medications were reviewed in detail Lab and Diagnostics Result Diagram: 11/05/16 0300 11/05/16 0300 Microbiology Urine specimen sent for culture X-Rays, CTs and MRIs . X-RAY CHEST ONE VIEW, PORTABLE 11/02/2016 IMPRESSION: Increased pulmonary vascularity suggesting of edema. There is blunting of the right costophrenic angle which could represent focal edema or nodular opacity. Recommend followup to document resolution. X-RAY CHEST ONE VIEW, PORTABLE 11/03/2016 IMPRESSION: Mild venous congestion redemonstrated. Of note, small nodules seen on prior CT scan not well visualized by plain film. X-RAY CHEST ONE VIEW, PORTABLE 11/04/2016 IMPRESSION: Mild venous congestion and edema similar to prior examination as well as bibasilar airspace opacities consistent with patchy pulmonary edema versus atelectasis or pneumonia. CT ANGIO CHEST PULMONARY EMBOLISM 11/02/2016 IMPRESSION: 1. No visualized embolism within the main pulmonary branches. Distal branches are heterogeneous in appearance secondary to technique. Small areas of distal emboli versus artifact cannot be excluded. 2. Mild appearance of pulmonary vascularity. 3. Nonspecific nodules bilaterally, the largest measuring 11 mm. No priors are available for comparison. Recommend interval followup as below. US VENOUS LEG DUPLEX BILATERAL 11/03/2016 IMPRESSION: Limited study demonstrating no deep venous thrombosis within either the left or right lower extremities. 12-lead ECG Heart rate 102, atrial fibrillation, no signs of acute infarct or ischemia. Left ventricular hypertrophy without strain. Cardiac Echo Impressions . Echocardiogram Report Interpretation Summary: Atrial fibrillation with heart rates between 79-116 bpm during the exam. Mild concentric left ventricular hypertrophy with ejection fraction 65-70%. Moderately dilated both atria. Mild tricuspid regurgitation. The right ventricular systolic pressure is estimated at 61 mmHg assuming a right atrial pressure of 8 mm Hg. Moderate-severe pulmonary hypertension. Moderately enlarged ascending aorta. Assessment & Plan 70-year-old male found to be hypoxic, believed to have CHF, COPD, venous hypertension, presumed to have CHF exacerbation. Treated with IV furosemide, and states feeling better following treatment. Patient is a very poor historian , unable to state what medications he is on, or previous diagnoses, or what the medications he is taking them for. Awaiting records from the [place], request has been faxed.(taken from H and P text) #1 acute hypoxic and hypercarbic respiratory failure, present on admission, improving Found to have oxygen saturation in the low 80%'s in the outpatient setting, confirmed in the emergency department, most likely due to congestive heart failure exacerbation and superimposed COPD. Did not take his furosemide before presentation. CT chest angiogram showed possible small areas of distal emboli or artifact. The patient continues to improve while being treated for COPD exacerbation. He is currently being weaned down in the amount of BiPAP support he needs. #2 Acute on Chronic diastolic heart failure (as well as right heart failure secondary to pulmonary hypertension), present on admission, improving Presumably caused by Chronic uncontrolled hypertension, new onset atrial fibrillation and resultant new cardiac insufficiency. Evidenced by dyspnea on exertion, lower extremity edema. The patient's anasarca is multifactorial with a component of pulmonary hypertension and right heart failure as well as probable left heart failure which is more diastolic in nature. The patient still has a lot of anasarca. Will increase Lasix from 40 IV twice a day to 60 IV twice a day as his diuresis is modest. #3 acute new onset Atrial fibrillation, present on admission, treatment initiated. Patient is asymptomatic, chronicity unknown. We will plan on initiating Coumadin with the first dose today. It is unclear if this is chronic atrial fibrillation are new atrial fibrillation. The patient however does meet criteria for anticoagulation. Assuming that he will be a reasonable anticoagulation candidate once he is improved from his respiratory status we would plan on beginning him on anticoagulant. At this point we will continue bridging heparin.. #4 Acute exacerbation of COPD. Present on admission, treatment ongoing -Duoneb q4h when necessary for shortness of breath or abrupt drop in O2 saturation. -Albuterol q2h PRN -Continue prednisone at 40 daily. No Changes to his current medical regimen #5 Scrotal edema and erythema. Present on admission. Active. The patient did have a North catheter placed for possible obstruction as well as difficulties with skin care excoriation secondary to his scrotal edema. At this point we will leave the catheter in for a period time. #6 Hypertension, uncontrolled, present on admission. His pressure is better controlled with the current medical regimen. Will continue to follow clinically. Pain Evaluation: Adequate Pain Control GI Prophylaxis: Not indicated VTE Prophylaxis: Sub-Q Heparin (Unfractionated) VTE Mechanical Devices: Venous Foot Pump Resuscitation Status: Limited Interventions (NO COMPRESSION/CPR/DEFIB. INTUBATION/BIPAP OKAY) Time spent 30 minutes Juan Aceves MD Nov 06, 2016 10:44
[2016-11-06 11:31] LABS: INR 1.22 ratio
--- NOTE | 2016-11-06 13:22 | PCM.PHAPRO ---
Progress Hypoxia Shortness of breath Lower extremity edema WARFARIN DOSING; Indication: AFIB, new dx, uncertain chronicity Concurrent: IV Heparin, Aspirin Home dose; NA C-V Score 3 Dosing: [facility] Date Nov 07-Nov 08-Nov 09-Nov 10-Nov 11-Nov 12-Nov 13-Nov 14-Oct INR 1.22 INR change Warf Dose 7.5MG a/p Will initiate on the higher certification officer, with consideration that he should not be discharged w/o full anticoagulation Consider stopping aspirin Miguel Diaz Pharm D Nov 06, 2016 13:22
--- NOTE | 2016-11-06 15:38 | ABG ---
DateTimeAnalyzed 15:32:00 -_ pH ____7.373 - 7.350 7.450 pCO2 ___78.4__ -mmHg 35.0 45.0 pO2 ___73.8__ -mmHg 69.0 116 HCO3- ___44.6__ -mmol/L 22.0 26.0 ABE ___16.5__ -mmol/L -2.0 2.0 tHb ___10.5__ -g/dL O2Hb ___92.1__ -% COHb ____1.9__ -% MetHb ____1.1__ -% sO2 ___95.0__ -% 25.0 FIO2 ___21.0__ -% Drawn By as - Date/Time Notified____ 15:38:00 -_ Spontaneous_RR ___24.0__ -b/min Liter_Flow ____4.0__ -L/min Oxygen Device 1 __CANNULA - Notified By RC - Notified Whom LOUANN, MD - B 755 -mmHg tO2 ___13.7__ -Vol% Juan test _Positive -
--- NOTE | 2016-11-06 15:46 | NUR ---
Evaluation completed. Please go to "Notes" then click on "Assessments and Notes" (bottom left corner of screen). Then select appropriate discipline tab on top of screen.
--- NOTE | 2016-11-06 18:42 | NUR ---
Mentation/O2/HR Pt alert and oriented x3, very pleasant, conversational and cooperative with cares. O2 sats 87-92% on 4L NC. Pt desats when eating or conversing. HR 90-110s, 130-150s with activity.
--- NOTE | 2016-11-06 21:43 | NUR ---
VITALS/HEPARIN GTT Pt HR was a little high on assessment @ 120 with BP @ 102/62 and a low grade temp of 99 F. Pt's has been off BiPAP and continues with 4L NC sating low-mid 90's. Pt denies any pain, no other issues noted at this time. Pt's heparin gtt currently @ 1900 units/hr, first dose of warfarin given on day shift. Addendum: 11/07/16 at 0638 by ESTEFANI AMES RN heparin drip currently @ 1925, in therapeutic range x1. Pt currently @ 6L NC sating low 90's.
[2016-11-06] MEDS: Heparin 25K Unit/500mL 0.45 NS 25,000 UNIT in IV Premix 1 EACH IV SCH (22:48)
[2016-11-07] VITALS (11 sets, daily range): BP systolic 101–127; BP diastolic 66–81; PULSE 89–128; RESP 16–22; O2SAT 90–97
[2016-11-07 04:55] LABS: INR 1.21 ratio
[2016-11-07] MEDS: Albuterol-Ipratropium 3 mL Inhalation Solution NEB SCH ×4 (08:29→20:59)
[2016-11-07] MEDS: Furosemide 10 mg/mL 4 mL Inj IVPUSH SCH ×2 (09:29→20:36)
[2016-11-07] MEDS: predniSONE 20 mg Tablet PO SCH (09:30)
[2016-11-07] MEDS: Nystatin 100,000 Unit/Gm 15 Gm Powder TOPICAL SCH ×2 (09:37→20:38)
--- NOTE | 2016-11-07 11:46 | NUR ---
Social Work: SN[facility] Expert gave patient a choice for SNF and patient chose [facility]. SW gave [facility] access to patient's chart and faxed face sheet. Angelita Sylvester, ELIZABETH, ACM
--- NOTE | 2016-11-07 12:36 | PCM.PNMED ---
Subjective Date of Service Nov 07, 2016 Subjective His breathing is a little better. He has no abdominal pain or nausea. No cough. He has Palpitations. He still feels fairly weak. He is able to sit up in the accident for 40 minutes today 20 minutes yesterday. He is able to stand with his walker for several minutes today in place. No fevers or chills. Exam Vital Signs Vital Sign - Last Date Time Temp Pulse Resp B/P Pulse Ox O2 Delivery O2 Flow Rate FiO2 11/07/16 11:56 90 20 96 Nasal Cannula 4.00 11/07/16 09:19 36.4 115/81 11/05/16 12:00 45 Intake and Output 11/06/16 11/06/16 11/07/16 Cumulative From/Thru 15:00 23:00 07:00 11/02/16 15:11 - 11/07/16 06:07 Intake Total 1265 ml 976 ml 8338 ml Output Total 1500 ml 3500 ml 16663 ml Balance -235 ml -2524 ml -4612 ml Intake Oral 920 ml 526 ml 5592 ml IV Total 345 ml 450 ml 2746 ml Output Urine Total 1500 ml 3500 ml 12750 ml # Bowel Movements 1 1 Exam There are 3, fluent speech. No distress. Normal sclera Neck is supple Lungs are clear with breath sounds at 2 of 4. Mild prolongation of expiratory phase. Minimal wheezing. Heart is irregular and tachycardic with a rate of about 100. No murmur. Abdomen is distended but nontender. Extremities without 1-2+ edema bilaterally. IVs and Medications Medications Reviewed: Medications were reviewed in detail Lab and Diagnostics Result Diagram: 11/07/16 0430 11/05/16 0300 Microbiology Urine specimen sent for culture X-Rays, CTs and MRIs . X-RAY CHEST ONE VIEW, PORTABLE 11/02/2016 IMPRESSION: Increased pulmonary vascularity suggesting of edema. There is blunting of the right costophrenic angle which could represent focal edema or nodular opacity. Recommend followup to document resolution. X-RAY CHEST ONE VIEW, PORTABLE 11/03/2016 IMPRESSION: Mild venous congestion redemonstrated. Of note, small nodules seen on prior CT scan not well visualized by plain film. X-RAY CHEST ONE VIEW, PORTABLE 11/04/2016 IMPRESSION: Mild venous congestion and edema similar to prior examination as well as bibasilar airspace opacities consistent with patchy pulmonary edema versus atelectasis or pneumonia. CT ANGIO CHEST PULMONARY EMBOLISM 11/02/2016 IMPRESSION: 1. No visualized embolism within the main pulmonary branches. Distal branches are heterogeneous in appearance secondary to technique. Small areas of distal emboli versus artifact cannot be excluded. 2. Mild appearance of pulmonary vascularity. 3. Nonspecific nodules bilaterally, the largest measuring 11 mm. No priors are available for comparison. Recommend interval followup as below. US VENOUS LEG DUPLEX BILATERAL 11/03/2016 IMPRESSION: Limited study demonstrating no deep venous thrombosis within either the left or right lower extremities. 12-lead ECG Heart rate 102, atrial fibrillation, no signs of acute infarct or ischemia. Left ventricular hypertrophy without strain. Cardiac Echo Impressions . Echocardiogram Report Interpretation Summary: Atrial fibrillation with heart rates between 79-116 bpm during the exam. Mild concentric left ventricular hypertrophy with ejection fraction 65-70%. Moderately dilated both atria. Mild tricuspid regurgitation. The right ventricular systolic pressure is estimated at 61 mmHg assuming a right atrial pressure of 8 mm Hg. Moderate-severe pulmonary hypertension. Moderately enlarged ascending aorta. Assessment & Plan 70-year-old male found to be hypoxic, believed to have CHF, COPD, venous hypertension, presumed to have CHF exacerbation. Treated with IV furosemide, and states feeling better following treatment. Patient is a very poor historian , unable to state what medications he is on, or previous diagnoses, or what the medications he is taking them for. Awaiting records from the [facility], request has been faxed.(taken from H and P text) #1 acute hypoxic and hypercarbic respiratory failure, present on admission, improving Found to have oxygen saturation in the low 80%'s in the outpatient setting, confirmed in the emergency department, most likely due to congestive heart failure exacerbation and superimposed COPD. Did not take his furosemide before presentation. CT chest angiogram showed possible small areas of distal emboli or artifact. The patient continues to improve while being treated for COPD exacerbation. He is currently being weaned down in the amount of BiPAP support he needs. He has done any better over the last 24 hours. He is using low no BiPAP at this point is able to sit up and do at least a little bit of standing. We will continue his current medical regimen and use supplemental O2 as needed. #2 Acute on Chronic diastolic heart failure (as well as right heart failure secondary to pulmonary hypertension), present on admission, improving Presumably caused by Chronic uncontrolled hypertension, new onset atrial fibrillation and resultant new cardiac insufficiency. Evidenced by dyspnea on exertion, lower extremity edema. The patient's anasarca is multifactorial with a component of pulmonary hypertension and right heart failure as well as probable left heart failure which is more diastolic in nature. The patient still has a lot of anasarca. Will increase Lasix from 40 IV twice a day to 60 IV twice a day as his diuresis is modest. EXT continues to be fluid overloaded we will continue diuresis him. #3 acute new onset Atrial fibrillation, present on admission, treatment initiated. Patient is asymptomatic, chronicity unknown. We will plan on initiating Coumadin with the first dose today. It is unclear if this is chronic atrial fibrillation are new atrial fibrillation. The patient however does meet criteria for anticoagulation. Assuming that he will be a reasonable anticoagulation candidate once he is improved from his respiratory status we would plan on beginning him on anticoagulant. At this point we will continue bridging heparin.. He will continue Coumadin and we will keep his heparin going until he started therapeutic or discharges to the alf facility. #4 Acute exacerbation of COPD. Present on admission, treatment ongoing -Duoneb q4h when necessary for shortness of breath or abrupt drop in O2 saturation. -Albuterol q2h PRN -Continue prednisone at 40 daily. No Changes to his current medical regimen #5 Scrotal edema and erythema. Present on admission. Active. The patient did have a North catheter placed for possible obstruction as well as difficulties with skin care excoriation secondary to his scrotal edema. At this point we will leave the catheter in for a period time. Continue diuresis. Anticipate that his catheter will be left in for a short time at alf facility for skin care and to assure his ability urinate given his pronounced penile and scrotal edema. #6 Hypertension, uncontrolled, present on admission. His pressure is better controlled with the current medical regimen. Will continue to follow clinically. Anticipate discharge to [facility] either Wednesday or Wednesday. Pain Evaluation: Adequate Pain Control GI Prophylaxis: Not indicated VTE Prophylaxis: Sub-Q Heparin (Unfractionated) VTE Mechanical Devices: Venous Foot Pump Resuscitation Status: Limited Interventions (NO COMPRESSION/CPR/DEFIB. INTUBATION/BIPAP OKAY) Time spent 25 minutes Juan Aceves MD Nov 07, 2016 12:36
--- NOTE | 2016-11-07 13:37 | PCM.PHAPRO ---
Progress Date of Service: Nov 07, 2016 Warfarin dosing A/ INR still subtherapeutic and has not reflected any warfarin dosing yet. P/ Continue with 7.5 mg today and reevaluate tomorrow. -Nov 07-Oct 1.22 1.21 -0.01 7.5 MG 7.5 MG Ankur Covarrubias Nov 07, 2016 13:37
[2016-11-07] MEDS: Heparin 25K Unit/500mL 0.45 NS 25,000 UNIT in IV Premix 1 EACH IV SCH (14:19)
--- NOTE | 2016-11-07 14:54 | NUR ---
FRANCES FRANCES signed
[2016-11-07] MEDS: Heparin 5,000 Unit/mL Inj IVPUSH PRN (17:42)
--- NOTE | 2016-11-07 19:00 | NUR ---
Afib/activity Cardiac: Pt denies chest pain; TELE Afib 90's to 110's; Cardiac heparin drip at 2000 units/hr. Resp: Pt denies SOB, SPO2 90-93 on 2L NC. GI/: Pt denies N/V/D North draining to gravity, 2700 urine out this shift. Neuro: A&Ox3, GARVIN, pt worked with PT, ambulating in room.
[2016-11-08] VITALS (9 sets, daily range): BP systolic 103–125; BP diastolic 65–77; PULSE 88–118; RESP 16–27; O2SAT 89–96
[2016-11-08] MEDS: Heparin 25K Unit/500mL 0.45 NS 25,000 UNIT in IV Premix 1 EACH IV SCH (04:17)
[2016-11-08 05:03] LABS: INR 1.37 ratio
--- NOTE | 2016-11-08 05:10 | NUR ---
Desaturation/Heparin/Tele Pt had several episodes of desaturation;Spo2 84-87% on 2L NC while asleep due to mouth breathing. Pt easily aroused and asked to deep breathe through nose. Offered Oxymask and Pt refused. Pt's Spo2 now ranging 89-92%. Denies shortness of breath and difficulty breathing. Cardiac Heparin continues at 2000units/hr with 0430 PTT 64.5. No changes made to dosage. Tele: AFIB 80-100s per product safety technical assistant. Care ongoing.
[2016-11-08] MEDS: Albuterol-Ipratropium 3 mL Inhalation Solution NEB SCH ×2 (08:03→12:06)
[2016-11-08] MEDS: Furosemide 10 mg/mL 4 mL Inj IVPUSH SCH (08:27)
[2016-11-08] MEDS: predniSONE 20 mg Tablet PO SCH (08:27)
[2016-11-08] MEDS: Nystatin 100,000 Unit/Gm 15 Gm Powder TOPICAL SCH (08:34)
--- NOTE | 2016-11-08 10:56 | PCM.DIMED ---
Discharge Instructions Date of Service Nov 08, 2016 Dates of Hospitalization Nov 02, 2016 at 19:47 Discharge Diagnosis Discharge Diagnosis #1 acute hypoxic and hypercarbic respiratory failure, present on admission. #2 Acute on Chronic diastolic heart failure (as well as right heart failure secondary to pulmonary hypertension), present on admission. #3 acute new onset Atrial fibrillation, present on admission, treatment initiated. #4 Acute exacerbation of COPD. Present on admission. #5 Scrotal edema and erythema. Present on admission. Boyle placed to ensure ability to urinate. Will remain in place until outpatient urology follow up. #6 Hypertension, uncontrolled, present on admission. #7. Left leg wound (7 month duration). Will continue wound care outpatietn ( Mondays and Tuesdays0. #8. Obesity, POA. Patient Instructions Will leave boyle in and arrange urology (Dr Cummings) follow up in 2 weeks. Will continue outpatient wound care M,and T. Patient needs a CBC, BMP and protime on Wednesday (11/11) Juan Aceves MD Nov 08, 2016 10:56
[2016-11-08] MEDS ORDERED: WARF4TAB6 PO (10:58)
[2016-11-08] MEDS ORDERED: PRED-508 PO (10:58)
[2016-11-08] MEDS ORDERED: HYDR-4003 PO (10:58)
[2016-11-08] MEDS ORDERED: LISI-571 PO (10:58)
[2016-11-08] MEDS ORDERED: METO25TA6 PO (10:58)
--- NOTE | 2016-11-08 13:15 | NUR ---
Discharge Pt. requested a phone call to [id number] about his discharge. Hood Shea was called and made aware of discharge to [facility] this afternoon. Robbie Shea will inform pt's daughter in [place].
--- NOTE | 2016-11-08 13:24 | NUR ---
INR and anticoagulant INR 1.37 today. Pt. currently on Coumadin PO and Heparin cardiac protocol infusion. No Lovenox or equivalent is needed for bridging on discharge per Dr. Aceves. Pt. will continue Coumadin PO. Pt. will have CBC, BMP, and ProTime on 11/11/16.
--- NOTE | 2016-11-08 16:05 | PCM.DC.MED ---
Discharge Summary Date of Service Nov 08, 2016 Dates of Hospitalization Date of Hospital Admission Nov 02, 2016 at 19:47 Date of Discharge: Nov 08, 2016 Providers: Admitting Physician: Antonia Mcgovern DO [facility] Attending Physician: Antonia Mcgovern DO Diagnosis at Time of Discharge Diagnosis at Time of Discharge #1 acute hypoxic and hypercarbic respiratory failure, present on admission. #2 Acute on Chronic diastolic heart failure (as well as right heart failure secondary to pulmonary hypertension), present on admission. #3 acute new onset Atrial fibrillation, present on admission, treatment initiated. #4 Acute exacerbation of COPD. Present on admission. #5 Scrotal edema and erythema. Present on admission. Boyle placed to ensure ability to urinate. Will remain in place until outpatient urology follow up. #6 Hypertension, uncontrolled, present on admission. #7. Left leg wound (7 month duration). Will continue wound care outpatietn ( Mondays and . #8. Obesity, POA. Consultations Dr. Wan, infectious disease. Pulmonary medicine Urology Procedures XRay, CTs & MRIs . X-RAY CHEST ONE VIEW, PORTABLE 11/02/2016 IMPRESSION: Increased pulmonary vascularity suggesting of edema. There is blunting of the right costophrenic angle which could represent focal edema or nodular opacity. Recommend followup to document resolution. X-RAY CHEST ONE VIEW, PORTABLE 11/03/2016 IMPRESSION: Mild venous congestion redemonstrated. Of note, small nodules seen on prior CT scan not well visualized by plain film. X-RAY CHEST ONE VIEW, PORTABLE 11/04/2016 IMPRESSION: Mild venous congestion and edema similar to prior examination as well as bibasilar airspace opacities consistent with patchy pulmonary edema versus atelectasis or pneumonia. CT ANGIO CHEST PULMONARY EMBOLISM 11/02/2016 IMPRESSION: 1. No visualized embolism within the main pulmonary branches. Distal branches are heterogeneous in appearance secondary to technique. Small areas of distal emboli versus artifact cannot be excluded. 2. Mild appearance of pulmonary vascularity. 3. Nonspecific nodules bilaterally, the largest measuring 11 mm. No priors are available for comparison. Recommend interval followup as below. US VENOUS LEG DUPLEX BILATERAL 11/03/2016 IMPRESSION: Limited study demonstrating no deep venous thrombosis within either the left or right lower extremities. ECG 12 Lead Heart rate 102, atrial fibrillation, no signs of acute infarct or ischemia. Left ventricular hypertrophy without strain. Cardiac Echo Impression . Echocardiogram Report Interpretation Summary: Atrial fibrillation with heart rates between 79-116 bpm during the exam. Mild concentric left ventricular hypertrophy with ejection fraction 65-70%. Moderately dilated both atria. Mild tricuspid regurgitation. The right ventricular systolic pressure is estimated at 61 mmHg assuming a right atrial pressure of 8 mm Hg. Moderate-severe pulmonary hypertension. Moderately enlarged ascending aorta. Invasive Procedures None Brief History Patient is a 70-year-old gentleman who presented to the emergency department after [facility] by his primary care doctor for the complaint of scrotal swelling. While at the [facility] they found his O2 sat to be 83%, they instructed him to go to the emergency department. He claims that in the last week he has had worsening dyspnea on exertion, without orthopnea. He is haphazard historian only recalling medical conditions if specifically asked otherwise states "I have no medical problems" he denies ever having an echocardiogram performed, he denies having COPD and only having asthma exacerbation 40 years ago, but his outpatient medication reconciliation shows him to be on COPD inhalers. Additionally on further questioning he admits to having to use a CPAP machine at night and "but I do not need it." He is seen 2 times a week at [facility] for chronic left ankle wound. He takes 40 mg Lasix, recently up to twice a day, says he has not taken the medication today because if he took it in the morning he would not have been able to hold his urine until he got to the doctor's appointment. He denies any lightheadedness, dizziness, chest pain, nausea, vomiting, diarrhea , dysuria, scrotal pain, lower extremity pain, rashes, headaches, changes in vision, increased thirst. He states he has not eaten in almost 24 hours In the emergency department he was found to have: Temperature 36.6, heart rate of 32, 20 respirations per minute, 136/82, 83% on room air. He had a normal white count, mild anemia 11.9 hemoglobin, platelets 213, bicarbonate 33%, creatinine 0.52, otherwise CMP unremarkable. Negative troponin , BNP 944. Analysis showed pH 6.0, no protein, no glucose, no ketones, small occult blood, no nitrites, small leukocyte esterase, 3-10 red blood cells per high-powered field, 6-10 white blood cells per high-powered field, few urine bacteria, few epithelial cells and mucus is present EKG showed atrial fibrillation with a rate of 102, no acute ST or T-wave abnormalities. Chest x-ray showed increased pulmonary vascularity suggesting anemia. Also reported blunting of the right costophrenic angle which could represent edema or nodular opacity. Chest CT angiography: No pulmonary embolism was frankly seen, then at the distal branches are "heterogeneous in appearance secondary to technique. Small areas of distal emboli versus artifact cannot be excluded." Nonspecific nodules bilaterally, the largest measuring 11 mm. Hospital Course 70-year-old male found to be hypoxic, believed to have CHF, COPD, venous hypertension, presumed to have CHF exacerbation. Treated with IV furosemide, and states feeling better following treatment. Patient is a very poor historian , unable to state what medications he is on, or previous diagnoses, or what the medications he is taking them for. Awaiting records from the [facility], request has been faxed.(taken from H and P text) #1 acute hypoxic and hypercarbic respiratory failure, present on admission, improving Found to have oxygen saturation in the low 80%'s in the outpatient setting, confirmed in the emergency department, most likely due to congestive heart failure exacerbation and superimposed COPD. Did not take his furosemide before presentation. CT chest angiogram showed possible small areas of distal emboli or artifact. The patient continues to improve while being treated for COPD exacerbation. He is currently being weaned down in the amount of BiPAP support he needs. He has done any better over the last 24 hours. He is using low no BiPAP at this point is able to sit up and do at least a little bit of standing. We will continue his current medical regimen and use supplemental O2 as needed. #2 Acute on Chronic diastolic heart failure (as well as right heart failure secondary to pulmonary hypertension), present on admission, improving Presumably caused by Chronic uncontrolled hypertension, new onset atrial fibrillation and resultant new cardiac insufficiency. Evidenced by dyspnea on exertion, lower extremity edema. The patient's anasarca is multifactorial with a component of pulmonary hypertension and right heart failure as well as probable left heart failure which is more diastolic in nature. The patient still has a lot of anasarca. Will increase Lasix from 40 IV twice a day to 60 IV twice a day as his diuresis is modest. EXT continues to be fluid overloaded we will continue diuresis him. #3 acute new onset Atrial fibrillation, present on admission, treatment initiated. Patient is asymptomatic, chronicity unknown. We will plan on initiating Coumadin with the first dose today. It is unclear if this is chronic atrial fibrillation are new atrial fibrillation. The patient however does meet criteria for anticoagulation. Assuming that he will be a reasonable anticoagulation candidate once he is improved from his respiratory status we would plan on beginning him on anticoagulant. At this point we will continue bridging heparin.. He will continue Coumadin and we will keep his heparin going until he started therapeutic or discharges to the [facility] facility. #4 Acute exacerbation of COPD. Present on admission, treatment ongoing -Duoneb q4h when necessary for shortness of breath or abrupt drop in O2 saturation. -Albuterol q2h PRN -Continue prednisone at 40 daily. No Changes to his current medical regimen #5 Scrotal edema and erythema. Present on admission. Active. The patient did have a Boyle catheter placed for possible obstruction as well as difficulties with skin care excoriation secondary to his scrotal edema. At this point we will leave the catheter in for a period time. Continue diuresis. Anticipate that his catheter will be left in for a short time at [facility] facility for skin care and to assure his ability urinate given his pronounced penile and scrotal edema. #6 Hypertension, uncontrolled, present on admission. His pressure is better controlled with the current medical regimen. Will continue to follow clinically. The patient was however quite debilitated and felt to be a good candidate for [facility] facility care. He was ultimately accepted to [facility]. On the day of discharge Anticipate discharge to [facility] either Wednesday or Wednesday. Hospital course. This patient is admitted with acute on chronic hypoxic and hypercarbic respiratory failure. He was supported initially with BiPAP. He was treated for probable acute exacerbation of COPD with steroids and bronchodilators. The patient is found to be in atrial fibrillation of unknown chronicity. He was initially concern about possible ACS leading to heparin drip. This seemed to be less likely after trending troponins. A 2-D echo revealed normal ventricular function of the left ventricle and evidence of cor pulmonale likely related to his long-standing history of COPD. The patient also had evidence of anasarca heart failure. He was diuresed. He had severe scrotal edema prompting placement of a catheter to allow him to urinate. This was placed with the assistance of urology. The patient also had a chronic left leg wound for which he was given care on the outpatient side and this is followed by one on the hospital. The patient had slow improvement of his pulmonary status. His atrial fibrillation was generally rate controlled with titration of medications. There is no evidence of an acute pulmonary infection.The patient was however quite debilitated and felt to be a good candidate for [facility] facility care. He was ultimately accepted to [facility] On the day of discharge He agreed that leaving the catheter in for another 10 days was a good idea with his ongoing penile edema. We will make arrangements for him to be followed up outpatient by urology and at that point to remove the catheter and see if he can urinate without difficulty. Exam Vital Signs (Last) Date Time Temp Pulse Resp B/P Pulse Ox O2 Delivery O2 Flow Rate FiO2 11/08/16 14:36 36.9 107 18 116/76 96 Nasal Cannula 2.50 11/05/16 12:00 45 Exam Patient was seen and examined on the day of discharge Test 11/02/16 16:15 11/02/16 18:42 11/02/16 19:37 11/03/16 06:05 Hemoglobin A1c 6.0% (4.8-5.6) Troponin T < 0.010ug/L (0.0-0.011) Pro-B-Type Natriuretic Peptide 944.4pg/mL (0-376) Thyroid Stimulating Hormone (TSH) 2.350uIU/mL (0.450-4.500) Free Thyroxine 1.05ng/dL (0.82-1.77) Hold Abbasi Top Tube Received (Received) Urine Color Yellow (YELLOW) Urine Appearance Hazy (CLEAR,HAZY) Urine pH 6.0 (5.0-8.0) Urine Specific [place] 1.015 (1.003-1.035) Urine Protein Negativemg/dL (NEG,TRACE) Urine Glucose (UA) Negativemg/dL (NEGATIVE) Urine Ketones Negativemg/dL (NEGATIVE) Urine Occult Blood Small (NEGATIVE) Urine Nitrite Negative (NEGATIVE) Urine Bilirubin Negative (NEGATIVE) Urine Urobilinogen Normalmg/dL (NORMAL) Urine Leukocyte Esterase Small (NEGATIVE) Urine RBC 3-10/hpf (0-2) Urine WBC 6-10/hpf (0-5) Urine Epithelial Cells Few/hpf (NONE-MOD) Urine Crystals None seen (NONE SEEN) Urine Bacteria Few/hpf (NONE-FEW) Urine Hyaline Casts None/lpf (NONE) Urine Granular Casts None seen (NONE SEEN) Urine Waxy Casts None seen (NONE SEEN) Urine Red Blood Cell Casts None seen (NONE SEEN) Urine White Blood Cell Casts None seen (NONE SEEN) Urine Mucus Present (None Seen) Urine Trichomonas None seen (NONE SEEN) Urine Yeast None (NONE SEEN) Urinalysis Comment None Urine Culture Reflexed Indicated Hold Urine Received (Received) Triglycerides Level 47mg/dL (0-149) Cholesterol Level 95mg/dL (100-199) LDL Cholesterol, Calculated 48.600mg/dL (0-99) VLDL Cholesterol 9.400mg/dL HDL Cholesterol 37mg/dL (>39) Cholesterol/HDL Ratio 2.57 (0.0-4.4) Test 11/04/16 06:35 11/05/16 03:00 11/07/16 04:30 11/07/16 14:50 Neutrophils (%) (Auto) 80.9% (40-74) Lymphocytes (%) (Auto) 9.3% (14-46) Monocytes (%) (Auto) 9.3% (4-12) Eosinophils (%) (Auto) 0.1% (0-5) Basophils (%) (Auto) 0.2% (0-3) Total Bilirubin 0.9mg/dL (0.0-1.2) Aspartate Amino Transf (AST/SGOT) 19U/L (0-50) Alanine Aminotransferase (ALT/SGPT) 11U/L (0-44) Alkaline Phosphatase 120U/L (25-160) Total Protein 6.6g/dL (6.4-8.4) Albumin 3.5g/dL (3.4-5.0) Hepatitis C Antibody <0.1s/co ratio (0.0-0.9) Strongyloides IgG Antibody Negative (Negative) White Blood Count 10.5th/mm3 (3.8-10.1) Red Blood Count 4.53mil/mm3 (4.40-5.80) Mean Corpuscular Volume 89.6fL (81-100) Mean Corpuscular Hemoglobin 24.3pg (27.0-35.0) Mean Corpuscular Hemoglobin Concent 27.1% (32.0-37.0) Red Cell Distribution Width 18.2% (12.3-15.4) Platelet Count 193bil/L (150-400) Magnesium Level 2.1mg/dL (1.6-2.6) Hemoglobin 10.9g/dL (13.8-17.2) Hematocrit 39.2% (41.0-50.0) Sodium Level 139mEq/L (134-144) Potassium Level 4.2mEq/L (3.5-5.2) Chloride Level 91mEq/L (97-108) Carbon Dioxide Level 42mmol/L (18-29) Blood Urea Nitrogen 18mg/dL (8-27) Creatinine 0.56mg/dL (0.76-1.27) Estimat Glomerular Filtration Rate 153mL/min (>59) Glucose Level 162mg/dL (60-99) Calcium Level 8.4mg/dL (8.5-10.1) Test 11/08/16 04:30 11/08/16 10:39 Prothrombin Time 14.7sec (8.1-12.5) Prothromb Time International Ratio 1.37ratio Activated Partial Thromboplast Time 70.3sec (22.8-33.0) Microbiology Results Urine specimen sent for culture Discharge Medications Discharge Medications Alfuzosin ER (Alfuzosin ER) 10 Mg Tab.er.24h 10 MG PO DAILY Prescribed by: JAZZMINE DELGADILLO Aspirin Chew (Aspirin Chew) 81 Mg Chew 81 MG PO DAILY (Reported) Cholecalciferol (Vitamin D3) (Children's Vitamin D3) 1,000 Unit Tab.chew 2,000 UNIT PO DAILY (Reported) Cyanocobalamin (Vitamin B-12) (Vitamin B-12) 1,000 Mcg Tablet 1,000 MCG PO DAILY (Reported) Furosemide (Furosemide) 40 Mg Tablet 40 MG PO BIDWM (Reported) Lisinopril (Lisinopril) 5 Mg Tablet 2.5 MG PO HS Prescribed by: JUAN HUGHES MD Metoprolol Tartrate (Metoprolol Tartrate) 25 Mg Tablet 12.5 MG PO BID Prescribed by: JUAN HUGHES MD Prednisone (Deltasone) 20 Mg Tablet 40 MG PO DAILY Prescribed by: JUAN HUGHES MD Tiotropium Br/Olodaterol HCl (Stiolto Respimat Inhal [place]) 2.5 Mcg-2.5 Mcg/ Actuation Mist.inhal 2 GM IH DAILY (Reported) PT UNSURE OF INHALER MEDICATION. STATES STARTS WITH ST. Warfarin Sodium (Warfarin Sodium) 4 Mg Tablet 4 MG PO DAILY Prescribed by: JUAN HUGHES MD As needed Albuterol HFA (Proair HFA) 8.5 Gm Hfa.aer.ad 2 PUFFS INHALATION Q4H PRN PRN For Shortness of Breath (Reported) Hydrocodone-Acetaminophen 5-325 mg (Hydrocodone-Acetaminophen 5-325 mg) 1 Each Tablet 1 TABLET PO TID PRN PRN For Pain Prescribed by: JUAN HUGHES MD Sildenafil Citrate (Viagra) 100 Mg Tablet 100 MG PO UD PRN PRN ED Prescribed by: JAZZMINE DELGADILLO Followup Plan Disposition: [facility] Patient Instructions Will leave boyle in and arrange urology (Dr Cummings) follow up in 2 weeks. Will continue outpatient wound care M,and T. Patient needs a CBC, BMP and protime on Wednesday (11/11) Time spent 60 minute Juan Hughes MD Nov 08, 2016 16:05
== END 2016-11-08 15:30 | DRG 291 ==
LOC: SED 15:06 → MPC 19:47 → PCC 11-03 16:54
PROVIDERS: ADMIT Internal Medicine; ATTEND Internal Medicine
PROC: 4A033R1 Measurement of Arterial Saturation, Peripheral, Percutaneous Approach (ICD-10-PCS; principal; 2016-11-03)
PROC: 5A09457 Assistance with Respiratory Ventilation, 24-96 Consecutive Hours, Continuous Positive Airway Pressure (ICD-10-PCS; 2016-11-03)
DX: I50.33 Acute on chronic diastolic (congestive) heart failure (principal); J96.22 Acute and chronic respiratory failure with hypercapnia; J96.01 Acute respiratory failure with hypoxia; L97.229 Non-pressure chronic ulcer of left calf with unspecified severity; Z68.43 Body mass index [BMI] 50.0-59.9, adult; J44.1 Chronic obstructive pulmonary disease with (acute) exacerbation; E66.2 Morbid (severe) obesity with alveolar hypoventilation; I48.91 Unspecified atrial fibrillation; F17.210 Nicotine dependence, cigarettes, uncomplicated; Z98.84 Bariatric surgery status; G47.33 Obstructive sleep apnea (adult) (pediatric); B35.6 Tinea cruris; B35.4 Tinea corporis; I83.022 Varicose veins of left lower extremity with ulcer of calf; N50.89 Other specified disorders of the male genital organs; I27.2 Other secondary pulmonary hypertension; N40.0 Benign prostatic hyperplasia without lower urinary tract symptoms; I11.0 Hypertensive heart disease with heart failure

== ENCOUNTER 2016-11-22 23:53 | Emergency (ER) | payer OTHER ==
[~2016-11-22] VITALS: Ht 188 cm; Wt 140.9 kg
[~2016-11-22 23:53] MED LIST changes: +ASPI81TA3 PO; +CHOL-29 PO; +CYAN10008 PO; -FURO-128 PO; +FURO40TA4 PO; +HYDR-4003 PO; +LISI-571 PO; +METO25TA6 PO; +PRED-508 PO; +TIOT4MIS3 IH; +WARF4TAB6 PO
[2016-11-23 00:01] VITALS: BP 138/76; PULSE 135; RESP 25; O2SAT 95
--- NOTE | 2016-11-23 00:07 | ED.REPORT ---
HPI-Abd Pain M 40 and Over Date of Service Nov 23, 2016 ED Provider: Qamar Young MD Patient is a 70 year old male with a history of BPH, congestive heart failure, hypertension, and atrial fibrillation on Coumadin who presents to the ED via EMS from [facility] due to jonnathan bleeding from his urinary catheter following catheter change earlier today.Staff found his urine output to be bloody and not draining rapidly, with blood clots present. He was sent to the ED to have his catheter flushed and changed. The patient reports associated penile pain, which did not resolve with Vicodin. Patient is a poor historian and is able to provide minimal history. Nursing Notes Stated Complaint: BLEEDING FROM PENIS Chief Complaint: Male Abdominal Pain Nursing Notes Reviewed: Yes Allergies: Coded Allergies: No Known Allergies (Unverified , 11/02/16) Scheduled Alfuzosin ER (Alfuzosin ER) 10 Mg Tab.er.24h 10 MG PO DAILY Aspirin Chew (Aspirin Chew) 81 Mg Chew 81 MG PO DAILY Cholecalciferol (Vitamin D3) (Children's Vitamin D3) 1,000 Unit Tab.chew 2,000 UNIT PO DAILY Cyanocobalamin (Vitamin B-12) (Vitamin B-12) 1,000 Mcg Tablet 1,000 MCG PO DAILY Furosemide (Furosemide) 40 Mg Tablet 40 MG PO BIDWM Lisinopril (Lisinopril) 5 Mg Tablet 2.5 MG PO HS Metoprolol Tartrate (Metoprolol Tartrate) 25 Mg Tablet 12.5 MG PO BID Prednisone (Deltasone) 20 Mg Tablet 40 MG PO DAILY Tiotropium Br/Olodaterol HCl (Stiolto Respimat Inhal [place]) 2.5 Mcg-2.5 Mcg/ Actuation Mist.inhal 2 GM IH DAILY PT UNSURE OF INHALER MEDICATION. STATES STARTS WITH ST. Warfarin Sodium (Warfarin Sodium) 4 Mg Tablet 4 MG PO DAILY Scheduled PRN Albuterol HFA (Proair HFA) 8.5 Gm Hfa.aer.ad 2 PUFFS INHALATION Q4H PRN PRN For Shortness of Breath Hydrocodone-Acetaminophen 5-325 mg (Hydrocodone-Acetaminophen 5-325 mg) 1 Each Tablet 1 TABLET PO TID PRN PRN For Pain Sildenafil Citrate (Viagra) 100 Mg Tablet 100 MG PO UD PRN PRN ED General Time Seen by MD: 00:10 Chief Complaint Urinary catheter pain, Other (hematuria) Hx Obtained From: Patient Unable to Obtain Hx: Patient condition (limited, poor historian) Arrived By: Ambulance Sudden in Onset?: No Onset Occurred: 5 - 8 hours ago Symptom Duration: Since onset Progression since Onset: Gradually worsening Quality: Painful Severity: Current: Moderate Severity: Maximum: Moderate Recent Healthcare: Recent hospitalization Similar Sx Previous: No Past Medical History Past Medical History Notes: Recent hospital admission for acute respiratory failure Past Medical History Venous hypertension Congestive heart failure Chronic venous insufficiency ulcer left lower extremity COPD BPH Reports: Hypertension Reports: Atrial fibrillation Past Surgical History Stomach bypass surgery Reports: Appendectomy Smoking History Current Every Day Smoker Social History Other Social History: Lives in correction, Local resident Ambulatory Status Independent Review of Systems Review of Systems Note: + penile pain Unable to Obtain ROS Patient condition (limited, poor historian) Male: Reports Hematuria Physical Exam Initial Vital Signs Vital Signs (First) Date Time Temp Pulse Resp B/P Pulse Ox O2 Delivery O2 Flow Rate FiO2 11/23/16 00:01 36.7 135 25 138/76 95 Nasal Cannula 1 Initial VS: Reviewed Head / Eyes: Atraumatic, Normocephalic, PERRL ENT: Conjunctiva normal, No scleral icterus Neck: Supple, Full range of motion Skin: Warm, Dry, No cyanosis Neurologic: Alert, Oriented, Nonfocal Psychiatric: Mood/affect normal, Behavior normal, Normal thought content General/Constitutional: Awake, Alert, No acute distress Appearance / Presentation: Positive: Obese Respiratory / Chest: Breath sounds NL, Breath sounds = bilat, No respiratory distress, No rales, No rhonchi, No wheezing Cardiovascular: Heart rate NL, Regular rhythm, Heart sounds NL, No murmurs Abdomen: Soft, Non-tender, No guarding, No rebound Back: Not examined Male Genitourinary: Penis NL Catheter is draining bloody urine with clots Lower Extremity / Pelvis / MS: No deformity, Neurologic intact, Vascular intact chronic venous stasis changes Interpretation & Diagnostics Lab Results Interpretation Result Diagram: 11/23/16 0021 11/23/16 0021 Test 11/23/16 00:21 White Blood Count 14.6th/mm3 (3.8-10.1) Red Blood Count 5.39mil/mm3 (4.40-5.80) Hemoglobin 13.8g/dL (13.8-17.2) Hematocrit 44.6% (41.0-50.0) Mean Corpuscular Volume 82.7fL (81-100) Mean Corpuscular Hemoglobin 25.6pg (27.0-35.0) Mean Corpuscular Hemoglobin Concent 30.9% (32.0-37.0) Red Cell Distribution Width 21.1% (12.3-15.4) Platelet Count 219bil/L (150-400) Neutrophils (%) (Auto) 93.3% (40-74) Lymphocytes (%) (Auto) 5.7% (14-46) Monocytes (%) (Auto) 0.5% (4-12) Eosinophils (%) (Auto) 0.1% (0-5) Basophils (%) (Auto) 0.1% (0-3) Prothrombin Time 14.4sec (8.1-12.5) Prothromb Time International Ratio 1.34ratio Sodium Level 136mEq/L (134-144) Potassium Level 4.5mEq/L (3.5-5.2) Chloride Level 93mEq/L (97-108) Carbon Dioxide Level 30mmol/L (18-29) Blood Urea Nitrogen 24mg/dL (8-27) Creatinine 0.74mg/dL (0.76-1.27) Estimat Glomerular Filtration Rate 111mL/min (>59) Glucose Level 112mg/dL (60-99) Calcium Level 9.4mg/dL (8.5-10.1) Magnesium Level 1.9mg/dL (1.6-2.6) Total Bilirubin 0.6mg/dL (0.0-1.2) Aspartate Amino Transf (AST/SGOT) 23U/L (0-50) Alanine Aminotransferase (ALT/SGPT) 29U/L (0-44) Alkaline Phosphatase 118U/L (25-160) Total Protein 7.5g/dL (6.4-8.4) Albumin 3.5g/dL (3.4-5.0) Lipase 23U/L (13-60) Hold Abbasi Top Tube Received (Received) ECG Interpretation ECG Interpretation: Atrial fibrillation with RVR, Rate 129 Low voltage, precordial leads right ventricular hypertrophy Borderline T abnormalities Time: 00:13 Interpreted by: ED physician Re-Eval/Medical Decision Med Decision/Clinical Course 7-year-old presents after full replacement with active bleeding clotting his North. A three-way twenty-four was placed and he was lavaged. He is now lavaged to clear with no further clotting. He is moderately anticoagulated with an INR of 1.39. The triple-lumen was left in place for use at the correction. He remained probably tachycardic at 120 in his chronic A. fib. His stable dose of digoxin was given. He is discharged now to [facility] in stable condition. Source of Hx: Old records Time of Eval: 02:15 Patient Status: Condition improved Re-Evaluation/Progress Note: Rechecked the patient. His catheter continues to drain, his bleeding appears to be improving. Time of Eval: 04:32 Re-Evaluation/Progress Note: Discussed the patient's lab results. He appears to be stable and will be discharged back to [facility]. Patient understands and agrees with the plan to be discharged home. Discharge instructions and follow-up discussed. All questions were addressed. Return to the ED warnings given. Counseled Regarding: Diagnosis, Lab results, Need for follow-up, When/why to return to ED Discharge & Departure Primary Impression: Hematuria Additional Impressions: Atrial fibrillation Atrial fibrillation type: unspecified Qualified Code: I48.91 - Unspecified atrial fibrillation Obstructed North catheter Encounter type: initial encounter Qualified Code: T83.098A - Other mechanical complication of other indwelling urethral catheter, initial encounter Disposition: Home Vital Signs - All Vital Signs Date Time Temp Pulse Resp B/P Pulse Ox O2 Delivery O2 Flow Rate FiO2 11/23/16 04:55 36.8 135 24 106/57 94 Nasal Cannula 3 11/23/16 04:40 135 11/23/16 00:01 36.7 135 25 138/76 95 Nasal Cannula 1 )( All Prior VS Reviewed: Yes Condition: Stable Patient Instructions: Atrial Fibrillation (ED), How to Care for Your North Catheter (ED) Additional Instructions: Keep up his oral fluid intake to keep his urine flow relatively high and prevent clotting. He now has a three-way North in place, and this can be lavaged if needed. Contact his doctor this morning for additional orders regarding North care. Return if this occludes any is unable to urinate. His chronic A. fib is noted and he was mildly tachycardic here. He received an initial dose of digoxin. Follow-up also with his doctor for additional instructions/orders [facility] Scribe Attestation Portions of this note were transcribed by Becca Lopez. I, Dr. Young personally performed the history, physical exam and medical decision-making; I reviewed and confirmed the accuracy of the information in the transcribed note. Signed by: Berna Scott, 11/23/2016 9211 copies to: [facility] Qamar Young MD Nov 23, 2016 00:07 Becca Lopez Nov 23, 2016 00:15
[2016-11-23] MEDS ORDERED: Lidocaine 2% 5 mL Urojet Topical Jelly Syringe MUC_MEMBRM ONE (00:15)
[2016-11-23] MEDS ORDERED: oxyCODONE-Acetamin 5-325 mg Tablet PO ONE (00:15)
[2016-11-23 00:31] LABS: BASOPHILS % (AUTO) 0.1 % (0-3); EOSINOPHILS % (AUTO) 0.1 % (0-5); MONOCYTES % (AUTO) 0.5 % (4-12); Mean Corpuscular Hemoglobin 25.6 pg (27.0-35.0); Mean Corpuscular Volume 82.7 fL (81-100); NEUTROPHILS % (AUTO) 93.3 % (40-74); Platelet Count 219 bil/L (150-400)
[2016-11-23 00:51] LABS: INR 1.34 ratio
[2016-11-23 01:04] LABS: Magnesium 1.9 mg/dL (1.6-2.6)
[2016-11-23] MEDS ORDERED: Digoxin 0.25 mg/mL 2 mL Inj IV ONE (04:35)
[2016-11-23 04:55] VITALS: BP 106/57; PULSE 135; RESP 24; O2SAT 94
== END 2016-11-23 04:48 | disposition home or self-care (01) ==
LOC: EDBD 23:53 → SED 23:53
DX: T83.098A Other mechanical complication of other urinary catheter, initial encounter (principal); Y84.6 Urinary catheterization as the cause of abnormal reaction of the patient, or of later complication, without mention of misadventure at the time of the procedure; Y92.89 Other specified places as the place of occurrence of the external cause; Y99.8 Other external cause status; I48.91 Unspecified atrial fibrillation; R31.9 Hematuria, unspecified; I11.0 Hypertensive heart disease with heart failure; I50.9 Heart failure, unspecified; J44.9 Chronic obstructive pulmonary disease, unspecified; F17.200 Nicotine dependence, unspecified, uncomplicated; Z79.82 Long term (current) use of aspirin; Z79.01 Long term (current) use of anticoagulants

== ENCOUNTER 2016-11-27 12:19 | Inpatient (IN) | payer MEDICARE, OTHER ==
[~2016-11-27] VITALS: Ht 190.5 cm; Wt 145.5 kg
[2016-11-27] VITALS (9 sets, daily range): BP systolic 76–128; BP diastolic 46–91; PULSE 71–132; RESP 19–29; O2SAT 88–97
[2016-11-27] MEDS ORDERED: Ondansetron 2 mg/mL 2 mL Inj IVPUSH PRN ×3 (12:30→17:40)
--- NOTE | 2016-11-27 12:30 | ED.REPORT ---
HPI- Male Date of Service Nov 27, 2016 ED Provider: Korey Gaxiola DO Patient is a 70 year old male with a history of BPH, congestive heart failure, hypertension, and atrial fibrillation on Coumadin who presents to the ED via EMS from [facility] due to a clogged, permanent, indwelling, Boyle Catheter. Per medics, he began bleeding at 10 o'clock this morning. There is blood in both the bag and the catheter. This is the third time they have tried flushing the catheter, unsuccessfully. His bed clothes have been soaked with blood 3 times since this morning. He is pale and diaphoretic upon arrival. Pt c/o pain at the tip of his penis where the catheter is inserted and denies any other symptoms. Pt was given morphine en route. He was last seen at the ED 11/23/16 for similar symptoms. He denies chest pain, SOB, fever, cough, vomiting, diarrhea and chills. He is currently being treated for a UTI, on ciprofloxacin. Nursing Notes Stated Complaint: CLOGGED URINARY CATHETER Nursing Notes Reviewed: Yes Allergies: Coded Allergies: No Known Allergies (Unverified , 11/02/16) Scheduled Alfuzosin ER (Alfuzosin ER) 10 Mg Tab.er.24h 10 MG PO DAILY Aspirin Chew (Aspirin Chew) 81 Mg Chew 81 MG PO DAILY Cholecalciferol (Vitamin D3) (Children's Vitamin D3) 1,000 Unit Tab.chew 2,000 UNIT PO DAILY Ciprofloxacin (Cipro) 500 Mg Tablet 500 MG PO BID x5 days starting 11/25/16 Cyanocobalamin (Vitamin B-12) (Vitamin B-12) 1,000 Mcg Tablet 1,000 MCG PO DAILY Furosemide (Furosemide) 40 Mg Tablet 40 MG PO BIDWM Lactobacillus Acidophilus (Acidophilus) 1 Each Tablet 2 EACH PO BID x7 days starting 11/25/16 Lisinopril (Lisinopril) 5 Mg Tablet 2.5 MG PO HS Metoprolol Tartrate (Metoprolol Tartrate) 25 Mg Tablet 12.5 MG PO BID Prednisone (PredniSONE) 10 Mg Tablet 10 MG PO DAILY start 02/28/17 for 5 days Prednisone (PredniSONE) 20 Mg Tablet 20 MG PO DAILY start 11/23/16 for 5 days Prednisone (PredniSONE) 5 Mg Tab 5 MG PO DAILY start 12/05/16 for 5 days Tiotropium Br/Olodaterol HCl (Stiolto Respimat Inhal [place]) 2.5 Mcg-2.5 Mcg/ Actuation Mist.inhal 2 GM IH DAILY PT UNSURE OF INHALER MEDICATION. STATES STARTS WITH ST. Warfarin Sodium (Warfarin Sodium) 7.5 Mg Tablet 7.5 MG PO DAILY Scheduled PRN Albuterol HFA (Proair HFA) 8.5 Gm Hfa.aer.ad 2 PUFFS INHALATION Q4H PRN PRN For Shortness of Breath Hydrocodone-Acetaminophen 5-325 mg (Hydrocodone-Acetaminophen 5-325 mg) 1 Each Tablet 1 TABLET PO TID PRN PRN For Pain Sildenafil Citrate (Viagra) 100 Mg Tablet 100 MG PO UD PRN PRN ED General Time Seen by MD: 12:20 Chief Complaint Urinary catheter problem Hx Obtained From: EMS Arrived By: Ambulance Onset Occurred: 1 - 4 hours ago Symptom Duration: Since onset Location: : Inguinal area left: Inguinal area right Quality: Painful Severity: Current: Mild Recent Healthcare: Recent doctor visit Similar Sx Previous: Yes Past Medical History Past Medical History Notes: Recent hospital admission for acute respiratory failure Past Medical History Venous hypertension Congestive heart failure Chronic venous insufficiency ulcer left lower extremity COPD BPH Reports: Hypertension Reports: Atrial fibrillation Past Surgical History Stomach bypass surgery Reports: Appendectomy Smoking History Current Every Day Smoker Social History Other Social History: Lives in retirement, Local resident Ambulatory Status Independent Review of Systems Review of Systems Note: pain at tip of penis at catheter insertion site clogged Boyle Catheter Constitutional: Denies: Chills, Fever GI: Denies: Diarrhea, Vomiting Complete sys rev & neg: except as marked. Respiratory: Denies: Non-productive cough, Shortness of breath Cardiovascular: Denies: Chest pain Physical Exam Initial Vital Signs Vital Signs (First) Date Time Temp Pulse Resp B/P Pulse Ox O2 Delivery O2 Flow Rate FiO2 11/27/16 12:32 36.7 132 29 128/91 91 Nasal Cannula 3 Initial VS: Reviewed Head / Eyes: Atraumatic, Normocephalic, PERRL ENT: Mucous membranes moist, Conjunctiva normal Respiratory: Breath sounds normal, Clear to auscultation, No respiratory distress Abdomen / GI: Soft, Non-tender, No guarding, No rebound Extremities: Vascular intact, No swelling, No tenderness Perineum: Negative: Crepitus present, Erythema present blood at urethral meatus 24 [place] 3-way Boyle catheter blood in Boyle bag no perineal tenderness, erythema, warmth, or crepitus Skin: Atraumatic, No rash Heart Rate / Rhythm: Positive: Irreg irregular rhythm, Tachycardia Interpretation & Diagnostics Interpretation & Diagnostics: CHEST X-RAY IMPRESSION: 1. No acute cardiopulmonary process is evident. 2. Left pulmonary nodule. Dictated by: Jeevan Ruggiero M.D. on 11/27/2016 at 12:57 Approved by: Jeevan Ruggiero M.D. on 11/27/2016 at 12:59 Lab Results Interpretation Result Diagram: 11/27/16 1340 11/27/16 1233 Test 11/27/16 12:24 11/27/16 12:33 11/27/16 12:35 11/27/16 13:40 Hold Abbasi Top Tube Received (Received) White Blood Count 15.6th/mm3 (3.8-10.1) Red Blood Count 5.05mil/mm3 (4.40-5.80) Mean Corpuscular Volume 84.6fL (81-100) Mean Corpuscular Hemoglobin 25.5pg (27.0-35.0) Mean Corpuscular Hemoglobin Concent 30.2% (32.0-37.0) Red Cell Distribution Width 20.7% (12.3-15.4) Platelet Count 210bil/L (150-400) Neutrophils (%) (Auto) 85.6% (40-74) Lymphocytes (%) (Auto) 8.0% (14-46) Monocytes (%) (Auto) 5.5% (4-12) Eosinophils (%) (Auto) 0.2% (0-5) Basophils (%) (Auto) 0.1% (0-3) Prothrombin Time 24.7sec (8.1-12.5) Prothromb Time International Ratio 2.27ratio Sodium Level 135mEq/L (134-144) Potassium Level 4.7mEq/L (3.5-5.2) Chloride Level 92mEq/L (97-108) Carbon Dioxide Level 28mmol/L (18-29) Blood Urea Nitrogen 18mg/dL (8-27) Creatinine 0.68mg/dL (0.76-1.27) Estimat Glomerular Filtration Rate 123mL/min (>59) Glucose Level 124mg/dL (60-99) Calcium Level 9.3mg/dL (8.5-10.1) Total Bilirubin 0.6mg/dL (0.0-1.2) Aspartate Amino Transf (AST/SGOT) 19U/L (0-50) Alanine Aminotransferase (ALT/SGPT) 23U/L (0-44) Alkaline Phosphatase 110U/L (25-160) Total Protein 7.6g/dL (6.4-8.4) Albumin 3.4g/dL (3.4-5.0) Procalcitonin 0.68ng/mL (0.00-0.08) Lactic Acid Level 1.3mmol/L (0.4-2.0) Hemoglobin 11.6g/dL (13.8-17.2) Hematocrit 39.3% (41.0-50.0) Test 11/27/16 14:47 Urine Color Red (YELLOW) Urine Appearance Turbid (CLEAR,HAZY) Urine pH (5.0-8.0) Urine Specific [place] 1.015 (1.003-1.035) Urine Protein mg/dL (NEG,TRACE) Urine Glucose (UA) mg/dL (NEGATIVE) Urine Ketones mg/dL (NEGATIVE) Urine Occult Blood (NEGATIVE) Urine Nitrite (NEGATIVE) Urine Bilirubin (NEGATIVE) Urine Urobilinogen mg/dL (NORMAL) Urine Leukocyte Esterase (NEGATIVE) Urine RBC Packed/hpf (0-2) Urine WBC 11-50/hpf (0-5) Urine Epithelial Cells Occasional/hpf (NONE-MOD) Urine Crystals None seen (NONE SEEN) Urine Bacteria Few/hpf (NONE-FEW) Urine Hyaline Casts None/lpf (NONE) Urine Granular Casts None seen (NONE SEEN) Urine Waxy Casts None seen (NONE SEEN) Urine Red Blood Cell Casts None seen (NONE SEEN) Urine White Blood Cell Casts None seen (NONE SEEN) Urine Mucus None seen (None Seen) Urine Trichomonas None seen (NONE SEEN) Urine Yeast None (NONE SEEN) Urinalysis Comment Color interference Urine Culture Reflexed Indicated ECG Interpretation ECG Interpretation: A-fib (rate 125) probable RVH Time: 12:27 Interpreted by: ED physician Re-Eval/Medical Decision Med Decision/Clinical Course Patient likely has UTI and mild sepsis, tachycardia and leukocytosis 11-50 white cells in his urine, he has already been on ciprofloxacin. Will plan to admit, Rocephin given. Re-Evaluation/Progress : Time of Eval: 14:58 Patient Status: Condition unchanged Re-Evaluation/Progress Note: Pt rechecked. Informed pt of need for admission. Pt understands and agrees with plan. All questions addressed. Consultation #1: Referral / Consult Name: Wilberto Medina MD Consulted With: Hospitalist Call Returned at: 14:40 Note: Case discussed. Dr. Medina agrees with plan to admit for UTI and irrigate boyle PRN, will plan to see patient once discharged. Consultation #2: Referral / Consult Name: Kym Winter MD Consulted With: Hospitalist Wallpaper Inspector: Accepts admit Counseled Regarding: Diagnosis, Lab results, Need for admission Discharge & Departure Impression: Primary Impression: UTI (urinary tract infection) Additional Impression: Hematuria Disposition: ADMITTED TO HOSPITAL Discharge Condition All VS Reviewed: Yes Condition: Stable [facility] [place] Attestation Portion of this note were transcribed by Tiffany Landeros. I, Dr. Gaxiola, personally performed the history, physical exam, and medical decision-making: I reviewed and confirmed the accuracy for the information in the transcribed note. Signed by: sven Oconnor, 11/27/16 1500 copies to: [facility] Korey Gaxiola DO Nov 27, 2016 12:30 Tiffany Landeros Nov 27, 2016 12:37
[2016-11-27] MEDS ORDERED: MeTOProlol 1 mg/mL 5 mL Inj IVPUSH ONE (12:35)
[2016-11-27 12:36] LABS: BASOPHILS % (AUTO) 0.1 % (0-3); EOSINOPHILS % (AUTO) 0.2 % (0-5); MONOCYTES % (AUTO) 5.5 % (4-12); Mean Corpuscular Hemoglobin 25.5 pg (27.0-35.0); Mean Corpuscular Volume 84.6 fL (81-100); NEUTROPHILS % (AUTO) 85.6 % (40-74); Platelet Count 210 bil/L (150-400)
[2016-11-27 12:54] LABS: INR 2.27 ratio
[2016-11-27] MEDS ORDERED: cefTRIAXone Inj 2,000 MG in Dextrose 5% Minibag Plus 50 ML IV ONE (14:00)
--- NOTE | 2016-11-27 14:01 | DRSVH ---
PROCEDURE: X-RAY CHEST ONE VIEW, PORTABLE ([id number]) INDICATIONS: tachycardia, leukocytosis, h/o COPD TECHNIQUE: One view of the chest was acquired. COMPARISON: [facility], CT, CT ANGIO CHEST PE, 11/02/2016, 17:33. [facility] , CR, XR CHEST 1VW (PORTABLE), 11/04/2016, 5:54. FINDINGS: Surgical changes and devices: None. Lungs and pleura: Improved expansion of the lungs is present with mild basilar scarring/atelectasis. No lobar consolidation is evident. There may be minimal airspace disease overlying the anterolatera l margin of the left 4th rib. No large effusion or pneumothorax is evident. There are no calcificat ions on the right. Mediastinum: Mediastinal contours appear normal. Heart size is normal. There is aortic atheroscler osis. Bones and chest wall: No suspicious bony lesions. The bone mineralization is decreased. Overlying soft tissues appear unremarkable. IMPRESSION: 1. No acute cardiopulmonary process is evident. 2. Left pulmonary nodule. Dictated by: Jeevan Ruggiero M.D. on 11/27/2016 at 12:57 Approved by: Jeevan Ruggiero M.D. on 11/27/2016 at 12:59
--- NOTE | 2016-11-27 15:04 | DRSVH ---
PROCEDURE: CT KUB ([id number]) INDICATIONS: hematuria TECHNIQUE: Noncontrast 5 mm thick sections acquired from the diaphragms to the symphysis. 5 mm thick coronal an d sagittal reformats were then performed. For radiation dose reduction, the following was used: aut omated exposure control, adjustment of mA and/or kV according to patient size. COMPARISON: [facility] chest 11/02/2016. FINDINGS: Image quality: Excellent. Lung bases: The 2 right lower lobe pulmonary nodules and the small inferior left lower lobe nodule ar e unchanged from the recent prior study, the larger left lower lobe nodule is not included on the cur rent exam. Heart size is normal with coronary artery calcifications. Calcified pleural plaque noted o jeremie the right posterior thorax and diaphragm. Surgical clips or sutures are present at the gastroesop hageal junction. Urinary system: Both kidneys are normal in size. There are 2 small nonobstructing calculi in the low er pole of the left kidney. Probable small peripelvic cysts bilaterally. An 18 mm exophytic cyst medi al upper pole of the left kidney shows water attenuation. No hydronephrosis or perinephric fat strand ing. Both ureters appear non-dilated throughout their expected courses. Bladder is collapsed around a North catheter and some intraluminal air is present however the bladder wall cannot be fr om the diffusely dense bladder. This may reflect the bladder lumen full of hemorrhage. Bladder mass c annot be excluded. Other solid organs: Liver and spleen are normal in size. Gallbladder appears normal. Pancreas is n ormal in contours. No adrenal nodules. Peritoneum and bowel: Unenhanced bowel loops demonstrate normal wall thickness and caliber. No free fluid or air. Nodes and vessels: No retroperitoneal or mesenteric adenopathy by size criteria. Aorta and inferior vena cava are normal in caliber. Abdominal wall: No ventral hernias. Pelvis: No free pelvic fluid. No inguinal hernias or adenopathy. Bones: No suspicious bony lesions. Disc degeneration L4-5 and L5-S1. No vertebral body compression f ractures. IMPRESSION: 1. Left nephrolithiasis without hydronephrosis. Renal cysts. 2. Urinary bladder contains a North catheter. There is apparently hemorrhagic urine within the decomp ressed bladder lumen and bladder wall thickening or mass cannot be assessed. 3. Bilateral pulmonary nodules are reidentified. Appropriate followup as previously recommended. 3. Pleural calcifications may reflect prior asbestos exposure or residual from previous infection Dictated by: Nasim Zendejas M.D. on 11/27/2016 at 14:46 Approved by: Nasim Zendejas M.D. on 11/27/2016 at 15:02
[2016-11-27 15:14] LABS: APPEARANCE,URINE TURBID (CLEAR,HAZY); COLOR,URINE RED (YELLOW)
[2016-11-27] MEDS ORDERED: PRE20 PO (15:38)
[2016-11-27] MEDS ORDERED: WARF7.5T4 PO (15:38)
[2016-11-27] MEDS ORDERED: PRE10 PO (15:38)
[2016-11-27] MEDS ORDERED: PRD5T PO (15:40)
[2016-11-27] MEDS ORDERED: LACT1TAB13 PO (15:43)
[2016-11-27] MEDS ORDERED: CIPR-231 PO (15:43)
[2016-11-27] MEDS ORDERED: Alum-Mag Hydrox-Simeth 30 mL Suspension PO PRN ×2 (15:45→17:40)
[2016-11-27] MEDS ORDERED: PHEN-684 PO (15:47)
[2016-11-27] MEDS ORDERED: ACET325T51 PO (15:47)
[2016-11-27] MEDS ORDERED: Polyethylene Glycol (PEG) 17 Gm Powder PO PRN (17:40)
--- NOTE | 2016-11-27 17:55 | PCM.PNMED ---
Subjective Date of Service Nov 27, 2016 Cancel this dictation note Exam Vital Signs Vital Sign - Last Date Time Temp Pulse Resp B/P Pulse Ox O2 Delivery O2 Flow Rate FiO2 11/27/16 17:05 96 11/27/16 16:58 36.6 19 109/75 95 Nasal Cannula 4.00 Exam Lab and Diagnostics Result Diagram: 11/27/16 1340 11/27/16 1233 Kym Winter MD Nov 27, 2016 17:55 Lab and Diagnostics Result Diagram: 11/27/16 1340 11/27/16 Kym Ordaz MD Nov 27, 2016 17:55
[2016-11-27] MEDS: 0.9% Sodium Chloride 1,000 ML IV SCH (18:35)
--- NOTE | 2016-11-27 19:02 | HP ---
[address] [address] HISTORY AND PHYSICAL PATIENT: JOSR FONTENOT : 1945 MR#: [id number] ADMIT: 11/27/2016 JOB ID: [id number] PRIMARY CARE PROVIDER: Dr. Smith at the [facility] PROVIDER: Marley Carrington MD. UROLOGIST: Dr. Medina. Patient admitted from the ED, inpatient status, Blue Team. CHIEF COMPLAINT: Dysuria and burning weakness. HISTORY OF PRESENT ILLNESS: This is a 70-year-old, white male who was recently hospitalized. He was here from November 02 to , with respiratory failure, CHF, new AFib and a COPD exacerbation. He had a North placed and was discharged to alf to recover. A few days ago, there was hematuria and some blockages of his catheter. He was seen in the ED, and he was started on her Pyridium, Cipro for UTI. He had his North irrigated changed. He felt better, and then yesterday or today he had resumption of hematuria, burning around the catheter site, and he presents to the ED. He is noted to have a white count of 15.6, with a shift, and I was asked to admit the patient for probable UTI. The patient underwent CT KUB which showed blood in the bladder, bilateral pulmonary nodules but no obstruction. UA showed packed RBCs, 11-50 WBCs, and a few bacteria. Chest x-ray was clear. Lactate was normal. Pro count was up at 0.68. LFTs and BNP were pretty unrevealing. The patient describes burning and bladder discomfort. He has not noted any fevers or chills at home. He has had a little bit more trouble voiding. He has noted the onset of hematuria. Denies any chest pain. His breathing has been pretty good. REVIEW OF SYSTEMS: Complete review of systems obtained. All pertinent positives in HPI above. Rest of the review systems are negative. PAST MEDICAL HISTORY: 1. Congestive heart failure secondary to diastolic dysfunction. 2. AFib. 3. COPD. 4. Hypertension. 5. Chronic left leg wound that has been there at least seven or eight months. 6. Gastric bypass. 7. Appendectomy. 8. BPH. MEDICATIONS: Include: 1. Alfuzosin ER 10 mg daily. 2. Aspirin 81 daily. 3. Cholecalciferol 200 daily. 4. Coumadin 7.5 bedtime. 5. B12 1000 mcg daily. 6. Prednisone 10 daily for four more days. 7. Cipro. 8. Lasix 40 b.i.d. 9. Metoprolol tartrate 12.5 b.i.d. 10. DuoNeb p.r.n. 11. Hydrocodone 6/325 q.8 p.r.n. 12. ProAir two puffs q.4. 13. Pyridium daily p.r.n. ALLERGIES: None. SOCIAL HISTORY: The patient retired. Does not smoke now. Consumes no alcohol. Is admitted at SNF, as noted above. FAMILY HISTORY: Father of old age, mother of a myocardial infarction. PHYSICAL EXAMINATION: Afebrile, heart rate 132, down to 100. Blood pressure 106/72, O2 sats 97% on room air. Patient is awake, alert, not in any distress. Eyes: PERRLA. EOMs intact. Mouth shows adequate hydration. No JVD. Cardiac is regular. No significant murmur. Lungs: Coarse with no wheezing or rales. Abdomen is soft, nonacute, benign. North catheter in place. Hematuria in the bag. Extremities show no edema. Cranial nerves 2-12 are intact. No gross motor or sensory defects noted. DIAGNOSIS: 1. Acute urinary tract infection present on admission. Active. Patient will be started on ceftriaxone. Appropriate cultures have been obtained. Will not continue with Pyridium. 2. Hematuria. Three-way North. P.R.N. flushes. Will hold patient's aspirin and Coumadin for now. If it does not resolve will discuss it with Dr. Medina. 3. Chronic congestive heart failure secondary to diastolic dysfunction present on admission. Stable. Continue patient's Lasix. 4. Chronic, AFib, present on admission. Stable. Continue with patient's metoprolol and will be holding Coumadin for now. 5. Chronic obstructive pulmonary disease, present on admission. Stable. Will continue with patient's prednisone for the next four days then stop p.r.n. albuterol, nebulizers, etc. 6. Hypertension, present on admission. Stable. Continue patient's beta blockers, metoprolol. 7. Left leg wound, chronic. Present on admission. Will get a wound care if nursing requests. CODE STATUS: FULL CODE.
[2016-11-27] MEDS: HYDROcodone-APAP 5-325 mg Tablet PO PRN (19:34)
[2016-11-27] MEDS: Lactobacillus Rhamnosus 10 Bil Unit Capsule PO SCH (19:50)
--- NOTE | 2016-11-27 19:52 | NUR ---
Patient was brought to [facility]: Patient was brought to [facility] from the ER at 1645. Patient is alert and oriented x3 . He has a indwelling cathater that was placed in the ER and draining Burgundy colored urine. Patients IV fluids were started. He was placed on Telemetry. He was oriented to his call light room and caregivers. Admit questiions were completed by the admit nurse in the ER.
[2016-11-27] MEDS ORDERED: Lactated Ringer's 1,000 ML IV ONE (21:30)
[2016-11-28] VITALS (12 sets, daily range): BP systolic 94–115; BP diastolic 60–75; PULSE 82–104; RESP 18–22; O2SAT 92–96
--- NOTE | 2016-11-28 04:44 | NUR ---
Low Bp Pt had 78/52 BP in early evening approx 1 hour after taking 12.5 metoprolol. Later states he does not think he normally takes metoprolol or any BP meds. 1L of LR bolus given and BP stable since then. Pt slept most of the night in upright position. O2 Began shift on 4L o2, weaned off to RA gradually through shift, pt desat to 88%, put on 1L and sat 95%
[2016-11-28] MEDS: 0.9% Sodium Chloride 1,000 ML IV SCH ×2 (05:10→22:42)
[2016-11-28] MEDS: HYDROcodone-APAP 5-325 mg Tablet PO PRN ×2 (05:13→10:17)
--- NOTE | 2016-11-28 05:17 | NUR ---
Hematuria Pt continues to have burgundy colored urine as reported from dayshift. Gets "spasms" that last 1 minute when urinating where pain goes upto 15/10. Baseline pain 2-3/10.
[2016-11-28 05:40] LABS: BASOPHILS % (AUTO) 0.2 % (0-3); EOSINOPHILS % (AUTO) 1.5 % (0-5); MONOCYTES % (AUTO) 10.6 % (4-12); Mean Corpuscular Hemoglobin 25.2 pg (27.0-35.0); Mean Corpuscular Volume 86.8 fL (81-100); NEUTROPHILS % (AUTO) 62.2 % (40-74); Platelet Count 172 bil/L (150-400)
--- NOTE | 2016-11-28 07:46 | PCM.PNMED ---
Subjective Date of Service Nov 28, 2016 Subjective No problems overnight. Still with hematuria. No fever, on antibiotics for UTI , cultures pending. Overall patient feels better. Exam Vital Signs Vital Sign - Last Date Time Temp Pulse Resp B/P Pulse Ox O2 Delivery O2 Flow Rate FiO2 11/28/16 05:54 96 20 94 Nasal Cannula 1.00 11/28/16 05:21 36.6 94/60 Intake and Output 11/27/16 11/27/16 11/28/16 Cumulative From/Thru 15:00 23:00 07:00 11/27/16 12:32 - 11/28/16 05:10 Intake Total 444 ml 1869 ml 2313 ml Output Total 400 ml 400 ml Balance 44 ml 1869 ml 1913 ml Intake Oral 444 ml 444 ml IV Total 1869 ml 1869 ml Output Urine Total 400 ml 400 ml Exam Eyes; be eom intact ENMT; well hydrated, no lesions CV no murmur Resp; clear to auscultation GI; soft, non acute, no cva tenderness Skin; dry, no rash Neuro; cn 2-12 intact, no motor defects Lab and Diagnostics Result Diagram: 11/28/16 0504 11/28/16 0504 Assessment & Plan 1. Acute urinary tract infection present on admission. Active. -ceftriaxone Day # 2. -await cultures -do not continue with Pyridium 2. Acute Hematuria, poa, active -Three-way North. P.R.N. flushes. Will hold patient's -hold aspirin and Coumadin for now -will give one unit Fresh Frozen today -to be seen by Dr. Medina, Urology -pain control with IV dilaudid 3. Chronic congestive heart failure secondary to diastolic dysfunction, poa, stable -Stable. -Continue patient's Lasix. 4. Chronic, AFib, present on admission. Stable. -Continue with patient's metoprolol and will be holding Coumadin for now. 5. Chronic obstructive pulmonary disease, present on admission. Stable. -Will continue with patient's prednisone for the next four days then stop -p.r.n. albuterol, nebulizers, etc. 6. Hypertension, present on admission. Stable. -Continue patient's beta blockers, metoprolol. 7. Left leg wound, chronic. Present on admission. -Will get a wound care consult if nursing feels necessary Disposition -recovering at [facility], Marley Carrington MD -pcp Dr [place], [place] -urologist Kym Huerta MD Nov 28, 2016 07:46
[2016-11-28] MEDS ORDERED: 0.9% Sodium Chloride 250 ML IV PRN (07:50)
[2016-11-28] MEDS: predniSONE 5 mg Tablet PO SCH (10:19)
[2016-11-28] MEDS: Lactobacillus Rhamnosus 10 Bil Unit Capsule PO SCH ×3 (10:22→22:43)
[2016-11-28] MEDS: cefTRIAXone Inj 2,000 MG in Dextrose 5% Minibag Plus 50 ML IV SCH (10:28)
--- NOTE | 2016-11-28 12:15 | NUR ---
Social Work-initial assessment: Data:See initial assessment. Pt is a 70 y/o male who was admitted on 11/27/16 for UTI, Afib w/RVR, hematuria per H&P. Pt's insurance is [employer] and Medicare and PCP is Paulino Moreno [facility]. EMR Reviewed. Pt's readmission score is 3-high risk. SW met with pt to discuss discharge planning, SW role explained. Pt is alert and oriented x3. Pt came from [facility] and is agreeable to returning. Pt uses a walker at baseline. and drives POV. Pt has no HH history. Pt states he has completed DPOA/ advanced directive and SW requested he provide the hospital with a copy. Pt has VA benefits and no [facility] care benefits. CHASTITY has contacted [facility] to inform them of pt's admission. Carole confirmed that pt will be accepted back at discharge with Dr. Carrington to follow. PPW in chart. SW provided phone number and plan on white board in room. SW will continue to follow for needs. Assessment:Pt who resides at [facility]. Plan:Pt to likely discharge back to [facility] with Dr. Carrington to follow. Ppw in chart. SW will continue to follow. WILMER Veliz Addendum: 11/28/16 at 1224 by DAYRON BARONE SS Amended: Links added.
--- NOTE | 2016-11-28 12:25 | NUR ---
Kristan Nick can accept back with Dr. Carrington to follow. WILMER Veliz
--- NOTE | 2016-11-28 14:00 | NUR ---
Bladder drainage: Patient c/o increased excruciating pain while urinating through his North catheter.Bladder scan showed 210 ml of urine in patients bladder. Patient s catheter was flushed with 40 ml of NS. There were several small clots flowing out of the catheter with the flush which improved the urinary drainage of the catheter. Contacted The Urologist Dr Jeronimo and placed an order for patient to be set up with continuous bladder irrigation .
--- NOTE | 2016-11-28 19:18 | NUR ---
Continuous bladder Irrigation: Patients CBI was started at 1650. Patients irrigation was started and the first 3000 Ml infused into bladder and then into the boyle bag.(Boyle was emptied of 4000 ml.) The second 3000 ml began infusing into bladder a few minutes into the infusion patient started crying out in pain and the school laboratory technician called and said patients HR increased to 140. The CBI was stopped immediately. Patients bladder was flushed with sterile NS and 60cc syringe. Several large clots were extracted from pts bladder. The CBI was started again and the liquid is light yellow at this time. Night nurse was given report .
[2016-11-28 19:39] LABS: BASOPHILS % (AUTO) 0.1 % (0-3); EOSINOPHILS % (AUTO) 0.8 % (0-5); MONOCYTES % (AUTO) 6.4 % (4-12); Mean Corpuscular Hemoglobin 25.6 pg (27.0-35.0); Mean Corpuscular Volume 87.7 fL (81-100); NEUTROPHILS % (AUTO) 76.8 % (40-74); Platelet Count 179 bil/L (150-400)
[2016-11-28 20:01] LABS: INR 1.67 ratio
[2016-11-29] VITALS (10 sets, daily range): BP systolic 99–109; BP diastolic 62–70; PULSE 74–107; RESP 16–20; O2SAT 91–95
[2016-11-29 05:16] LABS: BASOPHILS % (AUTO) 0.1 % (0-3); EOSINOPHILS % (AUTO) 1.7 % (0-5); Mean Corpuscular Hemoglobin 25.4 pg (27.0-35.0); Mean Corpuscular Volume 87.6 fL (81-100); NEUTROPHILS % (AUTO) 64.3 % (40-74); Platelet Count 170 bil/L (150-400)
[2016-11-29 05:32] LABS: INR 1.39 ratio
--- NOTE | 2016-11-29 06:48 | NUR ---
CBI: continued continuous bladder irrigation. Mostly clear yellow urine, minimal small blood clots. Morphine given 1x, when pt up to commode to attempt BM. report passed to [place].
--- NOTE | 2016-11-29 08:28 | PCM.PNMED ---
Subjective Date of Service Nov 29, 2016 Subjective No problems overnight. Hematuria resolved, urine clear. Discussed everything with patient, discussed pros and cons of coumadin versus asa therapy to prevent stroke in a patient with a-fib, considering patient now has had a significant bleeding event. Exam Vital Signs Vital Sign - Last Date Time Temp Pulse Resp B/P Pulse Ox O2 Delivery O2 Flow Rate FiO2 11/29/16 06:32 97 11/29/16 05:01 36.6 20 109/68 93 Nasal Cannula 1.00 Intake and Output 11/28/16 11/28/16 11/29/16 Cumulative From/Thru 15:00 23:00 07:00 11/27/16 12:32 - 11/29/16 06:43 Intake Total 476 ml 1093 ml 480 ml 4362 ml Output Total 550 ml 1250 ml 1150 ml 3350 ml Balance -74 ml -157 ml -670 ml 1012 ml Intake Oral 476 ml 822 ml 480 ml 2222 ml IV Total 50 ml 1919 ml FFP 221 ml 221 ml Output Urine Total 550 ml 800 ml 1150 ml 2900 ml Estimated Blood Loss 450 ml 450 ml # Bowel Movements 0 0 Exam Eyes; be eom intact ENMT; well hydrated, no lesions CV no murmur Resp; clear to auscultation GI; soft, non acute, no cva tenderness Skin; dry, no rash, stasis changes bolth lower extremities Neuro; cn 2-12 intact, no motor defects Lab and Diagnostics Result Diagram: 11/29/16 0500 11/29/16 0500 Assessment & Plan 1. Acute urinary tract infection present on admission. Active. -ceftriaxone Day # 3. -await cultures -do not continue with Pyridium 2. Acute Hematuria, poa, improving -Three-way North. P.R.N. flushes. Will hold patient's -hold aspirin and Coumadin for now -gave one unit Fresh Frozen 11/28/16 -to be seen by Dr. Medina, Urology -pain control with IV dilaudid, po vicodin -discuss with Adam tomorrow, consider restarting ASA -CBC in AM 3. Acute blood loss anemia from bladder, poa, improving -CBC in am 4. Positive blood culture, gram positive, active -follow probably contaminant -repeat blood cultures today 5. Chronic congestive heart failure secondary to diastolic dysfunction, poa, stable -Continue patient's Lasix. 6. Chronic, AFib, present on admission. Stable. -Continue with patient's metoprolol, rate controlled -patient elects not to restart coumadin at this time, when stable will restart ASA only -once catheter issue resolved patient can reconsider coumadin with PCP 7. Chronic obstructive pulmonary disease, present on admission. Stable. -Will continue with patient's prednisone for the next four days then stop -p.r.n. albuterol, nebulizers, etc. 8. Hypertension, present on admission. Stable. -Continue patient's beta blockers, metoprolol. 9. Left leg wound, chronic. Present on admission. -Will get a wound care consult if nursing feels necessary 10. Left Lung Nodule noted on CXR, 11/27/16, poa, active -Out Patient Follow up recommended Disposition -recovering at [facility], Marley Carrington MD -pcp Dr [place], [place] -urologist Kym Huerta MD Nov 29, 2016 08:28
[2016-11-29] MEDS: cefTRIAXone Inj 2,000 MG in Dextrose 5% Minibag Plus 50 ML IV SCH (08:41)
[2016-11-29] MEDS: predniSONE 5 mg Tablet PO SCH (08:48)
[2016-11-29] MEDS: HYDROcodone-APAP 5-325 mg Tablet PO PRN ×3 (08:52→20:55)
--- NOTE | 2016-11-29 15:12 | NUR ---
Social Work - Readiness for Discharge Data: EMR reviewed. Pt is on day 2 of hospitalization for UTI, for UTI, Afib w/RVR, hematuria per H&P. Pt is likely to discharge tomorrow per morning rounds. Pt will return to [facility] at discharge with Dr. Carrington to follow. PPW in chart. No additional needs assessed at this time. SW will continue to follow for needs. Assessment:Pt who resides at SNF. Plan:Pt to likely discharge back to [facility] with Dr. Carrington to follow. Ppw in chart. SW will continue to follow. WILMER Veliz
--- NOTE | 2016-11-29 17:05 | NUR ---
Bladder : Patients continuous bladder irrigation was discontinued per MD . There has been o clotting all night or all morning. The drainage fluid is running clear. After stopping the CBI patients urine is clear yellow and flowing freely. Patient stated that his bladder pain has significantly decreased since yesterday. He continues to be on IV ABT for his UTI.
[2016-11-29] MEDS: Lactobacillus Rhamnosus 10 Bil Unit Capsule PO SCH (18:05)
[2016-11-30] VITALS (9 sets, daily range): BP systolic 105–122; BP diastolic 69–82; PULSE 8–108; RESP 16–20; O2SAT 91–96
--- NOTE | 2016-11-30 05:44 | NUR ---
Pain/Urine: Pt c/o penile pain at insertion site of boyle cath; pain medication administered, effective. Urine draining clear yellow, no c/o bladder/abdominal pain. When asked, pt stated he was positive for TAYA and wears a Cpap which he did not bring to the hospital with him. RN placed pt on cont pulse ox due to receiving narcotics and having TAYA. Pt remained on 1L O2 throughout the night, no desats noted. Slept most of the night, pleasant and cooperative with care.
[2016-11-30 06:19] LABS: BASOPHILS % (AUTO) 0.4 % (0-3); EOSINOPHILS % (AUTO) 2.3 % (0-5); MONOCYTES % (AUTO) 6.9 % (4-12); Mean Corpuscular Hemoglobin 25.4 pg (27.0-35.0); Mean Corpuscular Volume 87.9 fL (81-100); NEUTROPHILS % (AUTO) 55.5 % (40-74); Platelet Count 191 bil/L (150-400)
[2016-11-30] MEDS: HYDROcodone-APAP 5-325 mg Tablet PO PRN ×2 (06:20→16:39)
[2016-11-30 06:49] LABS: INR 1.15 ratio
[2016-11-30] MEDS: Lactobacillus Rhamnosus 10 Bil Unit Capsule PO SCH ×2 (07:54→17:53)
[2016-11-30] MEDS: predniSONE 5 mg Tablet PO SCH (07:54)
[2016-11-30] MEDS: cefTRIAXone Inj 2,000 MG in Dextrose 5% Minibag Plus 50 ML IV SCH (07:55)
[2016-11-30] MEDS ORDERED: Belladonna Alk-Opium 60 mg Rectal Suppository RECTAL PRN (15:25)
[2016-11-30] MEDS: Lidocaine 2% 5 mL Topical Jelly TOPICAL PRN (15:53)
--- NOTE | 2016-11-30 16:14 | PCM.PNMED ---
Subjective Date of Service Nov 30, 2016 Subjective complains of significant and ongoing pain at site of North insertion. denies any other new issues/complaints Exam Vital Signs Vital Sign - Last Date Time Temp Pulse Resp B/P Pulse Ox O2 Delivery O2 Flow Rate FiO2 11/30/16 14:38 36.4 93 20 117/82 93 Nasal Cannula 1.00 Intake and Output 11/29/16 11/29/16 11/30/16 Cumulative From/Thru 15:00 23:00 07:00 11/27/16 12:32 - 11/30/16 06:51 Intake Total 1696 ml 350 ml 6408 ml Output Total 500 ml 1450 ml 5300 ml Balance 1196 ml -1100 ml 1108 ml Intake Oral 1376 ml 350 ml 3948 ml IV Total 320 ml 2239 ml FFP 221 ml Output Urine Total 500 ml 1450 ml 4850 ml Estimated Blood Loss 450 ml # Bowel Movements 0 1 1 General: Alert, Cooperative, No Acute Distress Head: Normal Eyes: Scleral Anicteric Nose: Mucous Membr Moist/[place] Mouth: Mucous Membr Moist/[place] Neck: Supple Chest & Lungs: Chest Wall Normal, Clear to auscultation & percussion Cardiovascular: Regular Rate/Rhythm Abdomen: Non-tender, Non-distended, Normoactive bowel tones, Soft Extremities: No cyanosis/clubbing/edma bilat, Other ( stasis changes bolth lower extremities) Neurological: Grossly Neurologically Intact, Normal Speech IVs and Medications Medications Reviewed: Medications were reviewed in detail Lab and Diagnostics Result Diagram: 11/30/16 0545 11/30/16 0545 Assessment & Plan 70-year-old, white male who was recently hospitalized. He was here from November 02 to , with respiratory failure, CHF, new AFib and a COPD exacerbation. He had a North placed and was discharged to intermediate to recover. A few days ago, there was hematuria and some blockages of his catheter. He was seen in the ED, and he was started on her Pyridium, Cipro for UTI. He had his North irrigated and changed. He felt better, and then on this admission he had resumption of hematuria, burning around the catheter site # Acute Hematuria, poa, improving -Three-way North. -hold aspirin and Coumadin for now -gave one unit Fresh Frozen 11/28/16 -discussed and consulted Dr. Medina, Urology, today. will f/u w/ official recs -c/w supportive care including pain control # Acute blood loss anemia from bladder, poa, stable - f/u # Acute bacteremia with MSSA. present on admission -ID consulted today. will f/u w/ recs # Suspected acute urinary tract infection present on admission. -cultures without significant growth -ceftriaxone Day # 4 -f/u with ID and urology consults for further recs # Chronic congestive heart failure secondary to diastolic dysfunction, poa, stable -Continue patient's Lasix. # Chronic, AFib, present on admission. Stable. -Continue with patient's metoprolol, rate controlled -patient elects not to restart Coumadin at this time, when stable will restart ASA only -once catheter issue resolved patient can reconsider Coumadin with PCP # Chronic obstructive pulmonary disease, present on admission. Stable. -stop prednisone -p.r.n. albuterol, nebulizers, etc. # Hypertension, present on admission. Stable. -Continue patient's beta blockers, metoprolol. # Left leg wound, chronic. Present on admission. -wound care consult if nursing feels necessary # Left Lung Nodule noted on CXR, 11/27/16, poa, active -Out Patient Follow up recommended Dispo: 1-2 days Aashish Salazar Nov 30, 2016 16:14 Aashish Salazar Nov 30, 2016 16:14
[2016-11-30] MEDS: CeFAZolin Inj 2,000 MG in Dextrose 5% 50 ML IV SCH ×2 (16:40→23:57)
--- NOTE | 2016-11-30 17:15 | NUR ---
Pain management Pt. c/o only one strong bladder spasm today, treated with a little irrigation. No clots seen. Urology ordered topical lidocaine and myra gamaliel suppository to help with pain management. Administered at 1600 this afternoon, and pt. reports considerable relief. Frequent sanchez-care and repositioning of catheter for comfort.
--- NOTE | 2016-11-30 21:03 | CONS ---
[address] [address] CONSULTATION REPORT PATIENT: JOSR FONTENOT : 1945 MR#: [id number] ADMIT: 11/27/2016 JOB ID: [id number] DATE OF SERVICE: 11/30/[address] Salazar for this timely consult. REASON FOR CONSULTATION: High-grade Staph aureus bacteremia in a patient admitted with bladder spasm and hematuria. HISTORY OF THE PRESENT ILLNESS: The patient is a 70-year-old, [facility] [employer] of the [place], who I had the privilege of seeing the last month during an admission to this facility last month that was asked to see whether I believe that he had scrotal cellulitis, which I thought was not the case and recommended he not receive antibiotics. During that admission, he had a great deal of anasarca and difficulty voiding, and a North catheter was eventually placed. He was subsequent discharged to [facility] with a North in place. The patient states he did quite well until around November 21, when he started to develop painful bladder and penile spasms in association with a North. This was followed by the development of gross hematuria. He was initially sent to the ER, had a larger North placed and received a large saline flush, and he did a bit better, then went back to [facility]. On Wednesday, November 27, the patient was scheduled to be seen by Dr. Medina of Urology as an outpatient to further evaluate this hematuria and penile/bladder pain; but the pain became excruciating and hematuria worsened, so he was sent to the emergency department and subsequently admitted on November 27 in the afternoon. Since his admission, his hematuria has resolved, but he continues to have extraordinarily painful bladder and base of the penis spasms, which he relates to the ongoing presence of the North. Interestingly, the patient states that throughout this 10 days or so of bladder penile spasm pain and intermittent hematuria, he has not had any fevers, chills, sweats, cough, shortness of breath, nausea, vomiting, or any other symptoms compatible with focal infection. ID is now asked to see the patient, because he is found to have a high-grade MSSA bacteremia of uncertain origin and significance. PAST MEDICAL HISTORY: 1. Morbid obesity with gastric bypass surgery, which has been successful. He has lost 150 or so pounds, though he remains with a BMI slightly above 40. 2. COPD. 3. Obstructive sleep apnea. 4. Intermittent profound lower extremity edema with anasarca noted clearly during his last admission here in October. 5. Benign prostatic hypertrophy. 6. History of lower extremity wounds. 7. Atrial fibrillation which has been treated in the past with a baby aspirin but more recently has been treated with Coumadin. SOCIAL HISTORY: The patient served four years in the [employer] including three years in [employer] and a year in [place], [place]. He was a heavy smoker but has been cutting back recently and about a month ago was able to actually quit as he now lives at [facility]. He denies using alcohol at this time. He lives alone in the local area and gets care through the [facility]. FAMILY HISTORY: The patient is adopted and has no family history he is aware of. REVIEW OF SYSTEMS: The patient states at this time he has no significant headache. No new visual change. No sores in the mouth. No odynophagia, no dysphagia. No cough, shortness of breath, chest pain, nausea, vomiting, or diarrhea. He has hematuria, bladder spasms, and penile pain as described in the history of present illness. He notes he has chronic problems with lower extremity edema; but right now it is about as good as it has been as he continues to steadily lose weight. The patient states his strength has diminished over the past few days, but he was doing well at [facility] and was able to walk 205 feet before this recent setback with the bladder spasms and the hematuria. He denies focal neurologic complaint. The remainder of the review of systems is negative. PHYSICAL EXAMINATION: Physical exam reveals a morbidly obese gentleman. Temperature 36.4. He has been afebrile throughout this most recent hospital stay. Pulse 93, respiratory rate 20, blood pressure 117/82, saturating 93% on 1 L. He is in no acute distress. Though he was having a great deal of bladder spasm type pain when we first entered the room, and seemed to improve somewhat as we spoke. He is alert and oriented. His head is without trauma or temporal wasting. Eyes with mild conjunctival pallor. No scleral icterus. Oral cavity: No thrush, hairy leukoplakia. No palatal petechia. His lips are without herpetic lesions. Neck is without obvious JVD or adenopathy. Lungs: Reasonably clear posteriorly. Cardiac tones: Irregular rate and rhythm consistent with AFib. No murmurs appreciated. He is somewhat tachycardic. Abdomen is obese, soft, and nontender without ascites hepatosplenomegaly or focal mass. The patient does have a bit of an overlying pannus, which complicates the exam. There is no evidence of panniculitis. His suprapubic area is nontender. There is some blood coming from around the meatus where the North is inserted, but it is scant. There is no evidence whatsoever for scrotal cellulitis. His lower extremities are notable for venous stasis changes and some mild edema. Venous stasis changes are quite severe below the mid herrera bilaterally. There is no skin breakdown in the lower extremities. No bullae or weeping ulcers. Patient has intact strength in all four extremities, and no soft tissue inflammation to suggest a site of origin for his Staph aureus bacteremia, specifically neither in any of his limbs. LABORATORY: Labs include white count of 14,000 when he was seen in the ED on the , and then 16,000 on the when he was seen again and finally admitted. His white blood count is now 9200 with a normal diff. Creatinine 0.48. Procalcitonin 0.68 when he was re-admitted; but it is now 0.17. Urinalysis not surprisingly packed with red cells, 11-50 white cells. From last admission, we had checked a hep C and Strongyloides in view of his [place] service; both of these studies are negative. Cultures of interest from this admission include urine culture with no growth and blood cultures, four of four bottles growing MSSA; one of four bottles is growing a coag-negative staph. Repeat blood cultures were ordered yesterday and are currently negative. IMAGING: Includes a chest x-ray done on the , which reveals a left pulmonary nodule, no infiltrate. A CT scan done on the shows left nephrolithiasis with renal cyst. What appears to be hemorrhagic urine is also noted. The pulmonary nodules are identified. Note that they were seen on imaging during his last admission in October. IMPRESSION: This is a strange case of a gentleman, who was seen last month for what appeared to be scrotal cellulitis but did not actually did not seem to have a scrotal infection, was not treated, and there was no subsequent problem with the scrotum. He did, however, have a great deal of difficulty voiding, and for that reason, a North catheter was placed. He now returns with bladder spasm and pain, which would seem to be related to the North and ongoing gross hematuria. An almost incidental finding is that he has leukocytosis and positive blood cultures 4/4 for methicillin-sensitive Staphylococcus aureus even as he has negative urine culture. The origin of this methicillin-sensitive Staphylococcus aureus in his blood remains unclear to me. Methicillin-sensitive Staphylococcus aureus is an unusual cause of cystitis or even pyelonephritis unless there is hematogenous seeding. The patient does not have prosthetic heart valve or any obvious soft tissue infection arising from his prior admission or any interventions done at the [facility] facility. At this point, it is essential that we go ahead and rule out endocarditis or deep-seated soft-tissue Staph aureus infection before concluding that the Staph aureus is the cause of the bladder spasm and/or the hematuria. RECOMMENDATIONS: 1. The patient will need a transthoracic echo. 2. If the transthoracic echocardiogram is nondiagnostic, as I suspect it will be in this very large gentleman, a CATE will be required. 3. Serial blood cultures will be needed until they are consistently negative. 4. Will continue for now with appropriate antibiotics which we will be switching to cefazolin, and the dose will be 2 gm IV q.8 with a minimum duration of two weeks and the maximum duration of six weeks depending on our serial blood cultures and transesophageal echo. 5. For now, will use a peripheral IV as we do not want to put in a PICC line until we are sure blood cultures are sterile. Thank you very much for this interesting consultation.
[2016-12-01] VITALS (12 sets, daily range): BP systolic 102–113; BP diastolic 66–75; PULSE 75–148; RESP 16–24; O2SAT 90–100
--- NOTE | 2016-12-01 04:45 | NUR ---
O2/Uneventful Night: Pt has had an uneventful night, no c/o pain or SOB. North with clear yellow urine. Pt weened to RA prior to HS, sats above 90-92% while awake, during sleep, pt noted to desat to mid 80's. RN placed pt back on O2, currently 2 L; RN will continue to monitor. Pt states he wears a Cpap at home. Pt slept off/on throughout the night, pleasant and cooperative with care.
[2016-12-01 06:11] LABS: INR 1.11 ratio
[2016-12-01] MEDS: predniSONE 5 mg Tablet PO SCH (07:48)
[2016-12-01] MEDS: Lactobacillus Rhamnosus 10 Bil Unit Capsule PO SCH ×2 (07:51→17:13)
[2016-12-01] MEDS: CeFAZolin Inj 2,000 MG in Dextrose 5% 50 ML IV SCH ×3 (09:04→23:38)
--- NOTE | 2016-12-01 12:09 | DRSVH ---
[facility] [address] [place] [address] Echocardiogram Report Name: JOSR FONTENOT Date : 12/01/2016 Height: 75 in Hospital Exam Location: [facility] Weight: 322 lb Gender: Male BSA: 2.7 m2 : 1945 Age: 70 yrs BP: 107/72 mmHg Reason For Study: Endocarditis Ordering Physician: Performed By: Marva Hayes Referring Physician: [facility] Interpretation Summary The study quality was technically limited. The ejection fraction is estimated to be 60-65%. There are no obvious focal wall motion abnormalities noted but poor endocardial definition reduces the sensitivity for the detection of such. The right ventricular systolic pressure is estimated at least 46 mmHg assuming a right atrial pressure of 8 mm Hg. Procedure: A two-dimensional transthoracic echocardiogram with color flow and Doppler was performed in limited views only. Comparison is made with the echocardiogram of 11/03/2016. Most of the acoustic windows were suboptimal, but the best imaging was obtained from the parasternal window. The study quality was technically limited. The patient was in atrial fibrillation with heart rates between 84-101 bpm during the exam. Left Ventricle: The left ventricle is normal in size. The ejection fraction is estimated to be 60-65%. There are no obvious focal wall motion abnormalities noted but poor endocardial definition reduces the sensitivity for the detection of such. Mitral Valve: The mitral valve is normal in structure and function. There is no vegetation seen on the mitral valve. There is no mitral regurgitation noted. Aortic Valve: The aortic valve is normal in structure and function. There is no aortic valvular vegetation. No aortic regurgitation is present. Tricuspid Valve: The tricuspid valve is normal in structure and function. There is no tricuspid valve vegetation. There is a trace or physiologic amount of tricuspid regurgitation. The right ventricular systolic pressure is estimated at least 46 mmHg assuming a right atrial pressure of 8 mm Hg. Compared to the prior echo exam, there has been a decrease in the severity of pulmonary hypertension. Pulmonic Valve: The pulmonic valve is normal in structure and function. There is no vegetation on the pulmonic valve. There is a trace or physiologic amount of pulmonic regurgitation. Great Vessels: The IVC is dilated (diameter is greater than 2.1 cm) yet it collapses greater than 50% with a sniff. This suggests a right atrial pressure of 8 mm Hg. Pericardium/ Pleura There is no pericardial effusion. MMode/2D Measurements & Calculations LVIDd IVC diam LV goldman. diameter/BSA LV sys. diameter/BSA : 5.0 cm : 3.2 cm (cm/m^2): 1.8 (cm/m^2): 1.3 LVIDs : 3.4 cm FS: 31.4 % IVSd : 1.cm LVPWd : 1.3 cm Doppler Measurements & Calculations MV E max thomas Med Peak E' Thomas TR max thomas MV dec time : 97.6 cm/sec : 263.6 cm/sec : 0.17 sec E/E' med: 10.6 TR max PG : 27.8 mmHg Electronically signed by: Devin Jackson on Reading Physician:12/01/2016 12:08 PM
--- NOTE | 2016-12-01 13:04 | PROG NOTE ---
[address] [address] PROGRESS NOTE PATIENT: JOSR FONTENOT : 1945 MR#: [id number] ADMIT: 11/27/2016 JOB ID: [id number] DATE: 12/01/2016 REASON FOR FOLLOWUP: High-grade MSSA bacteremia of uncertain source. INTERVAL HISTORY: Recall this is the odd case of a morbidly obese gentleman who was admitted with gross hematuria for urologic evaluation. As part of this evaluation, blood and urine cultures were done which was most appropriate. Surprisingly, the urine cultures have proven to be negative, while the blood culture is growing MSSA in a patient who does not have fevers, chills, cough, chest pain, focal bone pain, or peripheral stigmata of endocarditis. A urologic workup, including CT scan and now a cystoscopy, has proven to be negative as well, and his hematuria which brought him to the hospital has resolved. This morning, the patient says he is feeling quite well. He denies fevers, chills, sweats, focal bone or joint pain, and especially back pain. No significant cough, unusual shortness of breath, chest pain, nausea, vomiting, or diarrhea. PHYSICAL EXAMINATION: Reveals an afebrile gentleman. Temperature 36.8. His pulse is widely variable from 80 to about 150 and is irregular. Respiratory rate 16, blood pressure 111/73, saturating very well on 1 L. Examination of the eyes with no conjunctival hemorrhage. Oral cavity negative. Lungs fairly clear. Cardiac tones: Very rapid, irregular rate and rhythm without significant murmur. Abdomen is obese, soft, nontender. No peripheral stigmata of endocarditis on the hands. LABORATORIES: Include white count 9200, platelets 191. Creatinine 0.48. Procalcitonin dropping rapidly was 0.62, now 0.17, so a 75% reduction so far. Urinalysis had 11 to 50 white cells and was packed with red cells, but the culture is completely negative. Blood cultures from admission, 4/4 bottles grew Staph aureus, 1/4 grew coag-negative staph. That Staph aureus was very oxacillin and cefazolin susceptible. Followup blood cultures from the and are pending and are so far negative. CT scans of the kidneys showed renal cysts but no hydronephrosis. Some left nephrolithiasis was noted. The operative notes from his cystoscopy were reviewed. No significant pathology findings are reported. IMPRESSION: This is a very strange case of a gentleman who was admitted with gross hematuria which had been persisting for several days prior to admission and led to some emergency room visits before he was eventually admitted. That hematuria is now resolved, and we have no apparent cause based on CT scanning of his kidneys and cystoscopy. While this was being worked up, the patient was discovered to have a high-grade methicillin-sensitive Staphylococcus aureus bacteremia with negative urine cultures. I am at a loss to explain why he has high-grade methicillin-sensitive Staphylococcus aureus bacteremia, but when one does find Staphylococcus aureus in 4/4 blood cultures without a focal source, the suspicion is always that the patient has endocarditis or perhaps infectious aortitis or some other intravascular cause. RECOMMENDATIONS: 1. Will continue with high-dose cefazolin. An article published this month in JOHN suggests that cefazolin is as good and likely superior to oxacillin or nafcillin which would be more traditional choices in this circumstance. 2. We await the results of the transthoracic echo that was done this morning. 3. Assuming that transthoracic does not show endocarditis, we will need to pursue a transesophageal echo later this week. 4. We await the followup blood cultures. 5. No PICC line at this point. 6. We do not need any more blood cultures, assuming those from the and remain negative. 7. This was all discussed with the patient.
--- NOTE | 2016-12-01 14:09 | NUR ---
Spoke with Analilia in patient access at [facility] and this patient is non service connected.\ Updated ONLINE PRODUCER
--- NOTE | 2016-12-01 14:14 | NUR ---
Activity, O2 Pt ambulated into hallway once so far this shift. Able to get up slowly by self. Per quality assurance monitor chassis, HR in 150's while up. Pt oob for approx 5 min, ambulated a short way down the brooks and then back to bed. HR back to low 100's after returning to bed. O2 sats in 90's on RA.
[2016-12-01] MEDS: Lidocaine 2% 5 mL Topical Jelly TOPICAL PRN (14:32)
[2016-12-01] MEDS: HYDROcodone-APAP 5-325 mg Tablet PO PRN (14:32)
--- NOTE | 2016-12-01 16:48 | PCM.PNMED ---
Subjective Date of Service Dec 01, 2016 Subjective says overall feeling better. denies any other new issues/complaints Exam Vital Signs Vital Sign - Last Date Time Temp Pulse Resp B/P Pulse Ox O2 Delivery O2 Flow Rate FiO2 12/01/16 16:08 36.7 93 18 107/66 98 Nasal Cannula 1.00 Intake and Output 11/30/16 11/30/16 12/01/16 Cumulative From/Thru 15:00 23:00 07:00 11/27/16 12:32 - 11/30/16 18:42 Intake Total 1340 ml 7748 ml Output Total 1730 ml 7030 ml Balance -390 ml 718 ml Intake Oral 1200 ml 5148 ml IV Total 140 ml 2379 ml FFP 221 ml Output Urine Total 1730 ml 6580 ml Estimated Blood Loss 450 ml # Bowel Movements 1 2 Exam General: Alert, Cooperative, No Acute Distress Head: Normal Eyes: Scleral Anicteric Nose: Mucous Membr Moist/[place] Mouth: Mucous Membr Moist/[place] Neck: Supple Chest & Lungs: Chest Wall Normal, Clear to auscultation bilat Cardiovascular: Regular Rate/Rhythm Abdomen: Non-tender, Non-distended, Normoactive bowel tones, Soft Extremities: No cyanosis/clubbing/edema bilat, Other ( stasis changes both lower extremities) Neurological: Grossly Neurologically Intact, Normal Speech IVs and Medications Medications Reviewed: Medications were reviewed in detail Lab and Diagnostics Result Diagram: 11/30/16 0545 11/30/16 0545 Assessment & Plan 70-year-old, white male who was recently hospitalized. He was here from November 02 to , with respiratory failure, CHF, new AFib and a COPD exacerbation. He had a North placed and was discharged to [facility] to recover. A few days ago, there was hematuria and some blockages of his catheter. He was seen in the ED, and he was started on her Pyridium, Cipro for UTI. He had his North irrigated and changed. He felt better, and then on this admission he had resumption of hematuria, burning around the catheter site # Acute Hematuria, present on admission. resolved -Three-way North. -hold aspirin and Coumadin for now -gave one unit Fresh Frozen 11/28/16 -appreciate urology consult by Dr. Medina. will f/u w/ recs -time of North removal per urology consult. # Acute bacteremia with MSSA. present on admission. ongoing -? source -appreciate ID consult. will f/u w/ recs -continue with high-dose cefazolin. -followup pending transthoracic. If transthoracic does not show endocarditis will consider transesophageal echo later this week. # Suspected acute urinary tract infection present on admission. -cultures without significant growth -workup and treatment as noted above # Chronic, AFib, present on admission. Stable. -Continue with patient's metoprolol, rate controlled -patient elects not to restart Coumadin at this time -restart Aspirin when OK by urology -once catheter issue resolved patient can reconsider Coumadin with PCP # Acute blood loss anemia from bladder, poa, stable - f/u # Chronic congestive heart failure secondary to diastolic dysfunction, poa, stable -Continue patient's Lasix. # Chronic obstructive pulmonary disease, present on admission. Stable. -stop prednisone -p.r.n. albuterol, nebulizers, etc. # Hypertension, present on admission. Stable. -Continue patient's beta blockers, metoprolol. # Left leg wound, chronic. Present on admission. -wound care consult if nursing feels necessary # Left Lung Nodule noted on CXR, 11/27/16, poa, active -Out Patient Follow up recommended Dispo: 1-2 days Aashish Salazar Dec 01, 2016 16:48
--- NOTE | 2016-12-01 18:12 | NUR ---
Case Management: IMM explained to patient at 1745, all questions answered. Signed original placed in chart, pt given a copy. Gabriela Taylor RN
--- NOTE | 2016-12-01 21:04 | NUR ---
Venous Stasis P- Pt has bilateral pitting edema r/t venous stasis. Pt refuses SCDs, wears JETT hose at home. I- Nurse suggested that Pt elevate legs on pillows to aid in heel relief and reduce edema E- Pt agreed to intervention to reduce edema.
--- NOTE | 2016-12-01 21:20 | CONS ---
[address] [address] CONSULTATION REPORT PATIENT: JOSR FONTENOT : 1945 MR#: [id number] ADMIT: 11/27/2016 JOB ID: [id number] DATE OF SERVICE: 11/30/2016 REQUESTING PHYSICIAN: Aashish Salazar MD HISTORY OF PRESENT ILLNESS: The patient is a 70-year-old gentleman admitted on November 27, 2016. He was recently hospitalized from November 02 through the with the diagnosis of CHF, respiratory failure, new-onset AFib and COPD exacerbation. He had, by his description, markedly edematous genitalia. North catheter was placed that hospitalization and he was discharged to a [facility] facility for recovery. However, he developed hematuria and apparent dysfunction of his catheter. He was brought to the emergency department and started on Pyridium and Cipro and the catheter was exchanged. On November 26, 2016, he experienced recurrent hematuria and burning in the penis and he presented back to the emergency department with a white blood cell count of 15.6 thousand and with left shift and a UA was grossly and microscopically compatible with UTI. CT-KUB on admission showed two nonobstructing very small left lower pole renal calculi. An indwelling North catheter with decompressed bladder with some blood and clot debris within the bladder. The bladder wall was noted to be somewhat thickened but compressed. He has complained of significant bladder discomfort and a burning and intermittent pain going ventrally in his penis since admission. Urology is consulted. ALLERGIES: No known medical allergies. MEDICATIONS: On admission: 1. Alfuzosin ER 10 mg daily. 2. Aspirin 81 mg daily. 3. Cholecalciferol 200 mg daily. 4. Coumadin 7.5 mg at h.s. 5. B12 1000 mcg daily. 6. Prednisone 10 mg. 7. Cipro. 8. Lasix 40 mg b.i.d. 9. Metoprolol 12.5 mg b.i.d. 10. DuoNeb p.r.n. 11. Hydrocodone 5/325 mg p.o. q.8 h. p.r.n. 12. ProAir two puffs q.4 h. 13. Pyridium daily p.r.n. SOCIAL HISTORY: Does not smoke now but was a previous smoker. No alcohol consumption. FAMILY HISTORY: Mother had PR. Father cause unknown. PAST SURGICAL HISTORY: Gastric bypass, appendectomy. PAST MEDICAL HISTORY: Hypertension, AFib, COPD, congestive heart failure, morbid obesity, chronic left leg wound, BPH. PHYSICAL EXAMINATION: He is a well-developed, morbidly obese, white male, sitting upright in bed, no acute distress. Head and neck exam: Facial hair. Neck is supple. I cannot evaluate for JVD. Chest equal, unlabored expansion bilaterally. Heart rate is 90. Respirations 14-16. Temperature 36.8. Abdomen is obese, soft, nontender. External genitalia: Penis is concealed with indwelling North. Scrotum: No lesions, rashes, induration or exudate. Extremities: 1+ pretibial edema. Pulses are palpable in all four. DATABASE: Microbiology is significant for blood cultures positive for Staph aureus x2. Final urine culture: No growth. IMPRESSION: 1. Benign prostatic hypertrophy. 2. Gross hematuria. Uncertain etiology. Does not appear to be due to a urinary tract infection. Perhaps he has a urothelial lesion. No evidence by CT. The patient is minimally ambulatory. He is having regular bowel movements. No evidence of constipation. PLAN: Substitute tamsulosin for Alfuzosin. Add B and O suppository p.r.n. until ambulatory at which point B and O suppository should be discontinued and conduct a voiding trial with chlorinator catheter removal December 03, 2016 and bladder scan for postvoid residual q.4 h. thereafter. I will continue to monitor his progress in house and try and supervise a voiding trial. At some point, outpatient cystoscopy is indicated as well.
[2016-12-02] VITALS (15 sets, daily range): BP systolic 99–146; BP diastolic 66–73; PULSE 88–105; RESP 18–20; O2SAT 85–97
--- NOTE | 2016-12-02 06:02 | NUR ---
O2 Titration Pt breathing comfortable at bed rest, some SOB with activities such as repositioning. TAYA, pt did not bring in CPAP. SENSITIZED PAPER TESTER monitoring. Desat to 84% on RA when sleeping, O2 applied per Ox[employer]ask (Mouth breather), titrate O2 1-2l,SPO2 88-94%.
[2016-12-02 06:10] LABS: Mean Corpuscular Hemoglobin 25.3 pg (27.0-35.0); Mean Corpuscular Volume 88.1 fL (81-100)
[2016-12-02 06:17] LABS: INR 1.12 ratio
[2016-12-02] MEDS: CeFAZolin Inj 2,000 MG in Dextrose 5% 50 ML IV SCH ×3 (07:44→23:16)
[2016-12-02] MEDS: Albuterol 2.5 mg/3 mL Inhalation Solution NEB PRN ×3 (07:51→20:11)
[2016-12-02] MEDS: predniSONE 5 mg Tablet PO SCH (10:01)
[2016-12-02] MEDS: Lactobacillus Rhamnosus 10 Bil Unit Capsule PO SCH ×2 (10:01→17:52)
[2016-12-02] MEDS: HYDROcodone-APAP 5-325 mg Tablet PO PRN ×2 (10:50→21:16)
[2016-12-02] MEDS: Lidocaine 2% 5 mL Topical Jelly TOPICAL PRN ×2 (10:52→21:15)
--- NOTE | 2016-12-02 11:31 | NUR ---
Social Work: Continued d/c planning Data: Pt is on day 5 of hospitalization. EMR reviewed, pt discussed in rounds. MD states pt likely to need at least 2-3 more days of hospitalization stating ID to see pt. PAINTER CHASSIS will continue to follow. Assessment: Pt from [facility]. Plan: Pt will return to [facility] when medically stable. PAINTER CHASSIS will continue to follow. WILMER Mccain
--- NOTE | 2016-12-02 12:24 | NUR ---
Activity: Patient ambulated approx 60ft in hallway FWW. O2 saturation high 80s to low 90s on room air. Notified by technical fellow that patient HR increasing to 150-160s. Patient escorted back to bed. Per telephone installer, HR decreased to 110s. Patient sitting on side of bed for sponge bath then ambulated to chair. Notified again that HR increased to 150s. Up in chair for approx 30min, then assisted back to bed. On reassessment, HR in 90s A fib per telephone installer.
--- NOTE | 2016-12-02 14:35 | PCM.PNMED ---
Subjective Date of Service Dec 02, 2016 Subjective denies any other new issues/complaints Exam Vital Signs Vital Sign - Last Date Time Temp Pulse Resp B/P Pulse Ox O2 Delivery O2 Flow Rate FiO2 12/02/16 14:11 Supplement Oxygen 12/02/16 14:05 36.8 96 20 99/66 92 12/02/16 07:51 3.00 Intake and Output 12/01/16 12/01/16 12/02/16 Cumulative From/Thru 15:00 23:00 07:00 11/27/16 12:32 - 12/02/16 06:29 Intake Total 1040 ml 1036 ml 606 ml 74367 ml Output Total 1450 ml 1700 ml 450 ml 46828 ml Balance -410 ml -664 ml 156 ml -200 ml Intake Oral 1040 ml 1036 ml 536 ml 7760 ml IV Total 70 ml 2449 ml FFP 221 ml Output Urine Total 1450 ml 1700 ml 450 ml 53111 ml Estimated Blood Loss 450 ml # Bowel Movements 0 2 Exam General: Alert, Cooperative, No Acute Distress Head: Normal Eyes: Scleral Anicteric Nose: Mucous Membrane Moist/[place] Mouth: Mucous Membrane Moist/[place] Neck: Supple Chest & Lungs: Chest Wall Normal, Clear to auscultation bilaterally Cardiovascular: Regular Rate/Rhythm Abdomen: Non-tender, Non-distended, Normoactive bowel tones, Soft Extremities: No cyanosis/clubbing/edema bilaterally, Other ( stasis changes both lower extremities) Neurological: Grossly Neurologically Intact, Normal Speech IVs and Medications Medications Reviewed: Medications were reviewed in detail Lab and Diagnostics Result Diagram: 12/02/16 0532 12/02/16 0532 Assessment & Plan 70-year-old, white male who was recently hospitalized. He was here from November 02 to , with respiratory failure, CHF, new AFib and a COPD exacerbation. He had a North placed and was discharged to [facility]. A few days ago, there was hematuria and some blockages of his catheter. He was seen in the ED, and he was started on her Pyridium, Cipro for UTI. He had his North irrigated and changed. He felt better, and then on this admission he had resumption of hematuria, burning around the catheter site # Acute Hematuria, present on admission. resolved -North in place -hold aspirin and Coumadin for now -gave one unit Fresh Frozen 11/28/16 -appreciate urology consult by Dr. Medina. will f/u w/ recs -voiding trial tomorrow per urology consult. # Acute bacteremia with MSSA. present on admission. ongoing -? source -appreciate ID consult. will f/u w/ recs -continue with high-dose cefazolin. -transthoracic echo (TTE) 12/01 was unremarkable -discussed with cardiology (Dr. Thomas) today who will review the TTE again before deciding to move forward with transesophageal echo later this week. # Suspected acute urinary tract infection present on admission. -cultures without significant growth -workup and treatment as noted above # Chronic, AFib, present on admission. Stable. -Continue with patient's metoprolol, rate controlled -patient elects not to restart Coumadin at this time -restart Aspirin when OK by urology -once catheter issue resolved patient can reconsider Coumadin with PCP # Acute blood loss anemia from bladder, poa, stable - f/u # Chronic congestive heart failure secondary to diastolic dysfunction, poa, stable -Continue patient's Lasix. # Chronic obstructive pulmonary disease, present on admission. Stable. -stop prednisone -p.r.n. albuterol, nebulizers, etc. # Hypertension, present on admission. Stable. -Continue patient's beta blockers, metoprolol. # Left leg wound, chronic. Present on admission. -wound care consult if nursing feels necessary # Left Lung Nodule noted on CXR, 11/27/16, poa, active -Out Patient Follow up recommended Dispo: 2-3 days VTE Mechanical Devices: Intermittant Pneumatic CD Aashish Salazar Dec 02, 2016 14:35
--- NOTE | 2016-12-02 19:26 | PROG NOTE ---
[address] [address] PROGRESS NOTE PATIENT: JOSR FONTENOT : 1945 MR#: [id number] ADMIT: 11/27/2016 JOB ID: [id number] DATE: 12/02/2016 REASON FOR FOLLOWUP: Unexplained high-grade MSSA bacteremia. HISTORY OF PRESENT ILLNESS: The patient is a 70-year-old, morbidly obese gentleman who was admitted to this hospital for gross hematuria. He has had an evaluation by Dr. Medina and a North catheter has been placed and that problem seems to be improving. As an almost an incidental finding, we discovered the patient has a high-grade MSSA bacteremia of uncertain origin and we are now evaluating that. Today, the patient as usual reports that he has no fevers, chills, or sweats. He has no significant cough. He is at his baseline shortness of breath, but it does not seem different. No nausea, vomiting, diarrhea. PHYSICAL EXAMINATION: Reveals an afebrile gentleman, temperature 36.4, he has been afebrile throughout his five day hospital stay. Pulse 88, respiratory rate 18, blood pressure 146/73, saturating reasonably well on 1-3 L by nasal prongs. He has no conjunctival hemorrhages. His lungs relatively clear. Cardiac tones: Tachycardic with irregular rate and rhythm. Abdomen: Obese and benign. He has bilateral venous stasis changes, lower extremities, but no evidence of ongoing cellulitis. LABORATORIES: Include a white count relatively stable at 10,000, platelet count normal, creatinine is 0.48, procalcitonin coming down rapidly was 0.68, now 0.17 so not a huge drop but significant probably. Micro studies include the multiple positive blood cultures for Staphylococcus aureus which was MSSA on November 27. We have followups on the and and do not need any more blood cultures unless we get more positives. His initial echocardiogram was nondiagnostic as one would expect in a 340 pound man, and so we will need a transesophageal echo. IMPRESSION: Completely unexplained high-grade methicillin-sensitive Staphylococcus aureus bacteremia in a relatively asymptomatic, morbidly obese man who came in with hematuria. We remain concerned about endocarditis as community-acquired Staph aureus bacteremia without a focal source is very often due to endocarditis. What is odd about this case is that he seems functionally asymptomatic if indeed he has Staph endocarditis. RECOMMENDATIONS: 1. Transesophageal echo. 2. Continue with high-dose cefazolin. 3. We will hold off on a PICC line for a bit until we find out a bit more but what is going on. 4. This case discussed in person with Dr. Salazar who has indicated he will be arranging for the CATE.
[2016-12-03] VITALS (10 sets, daily range): BP systolic 98–119; BP diastolic 64–78; PULSE 78–113; RESP 18; O2SAT 91–96
--- NOTE | 2016-12-03 06:36 | NUR ---
pain [place] given and lidocaine was applied per pt's request for penile pain from catheter with good relief. Pt had 600mL of yellow urine in his boyle, no clots noted. Tele Afib in the 80s, up to 120s with activity. pt asymptomatic.
[2016-12-03] MEDS ORDERED: predniSONE 5 mg Tablet PO SCH (08:00)
[2016-12-03] MEDS: CeFAZolin Inj 2,000 MG in Dextrose 5% 50 ML IV SCH ×3 (08:02→23:33)
[2016-12-03] MEDS: Lactobacillus Rhamnosus 10 Bil Unit Capsule PO SCH ×2 (08:05→17:13)
[2016-12-03] MEDS: Albuterol 2.5 mg/3 mL Inhalation Solution NEB PRN ×3 (08:14→16:21)
--- NOTE | 2016-12-03 11:11 | NUR ---
Voiding Trial 120 mls NS instilled via boyle. Pt was unable to tolerated any additional fluid due to pressure/discomfrt. Boyle catheter removed. Pt tolerated well. Urinal placed at bedside. Pt instructed to contact staff when needs to void for assistance. Frequent rounding in place will continue to monitor, Addendum: 12/03/16 at 1212 by RED ZAZUETA RN Pt voided 200 mls of yellow urine. Pt sts "feels like bladder emptied" no complains of increased pain, pressure or bladder discomfrt. Pt encouraged to continue to consume fluids at a normal rate and contact the staff for assistance. Will continue to monitor. Addendum: 12/03/16 at 1436 by RED ZAZUETA RN Pt has voiding 300 mls total since removal of boyle. Spoke with Dr Medina, requested bladder scan. Bladder scan revealed 45 mls. Information relayed to Dr Medina. No additional orders at this time. Will continue to monitor.
--- NOTE | 2016-12-03 11:15 | NUR ---
Tachycardia Call from [facility], reports HR in 140-150s. Pt reports was sitting up at the side of the bed voiding, No complains of increased chest discomfrt/pressure, or chest pain. Call light within reach. Addendum: 12/03/16 at 1245 by RED ZAZUETA RN HR decreased into low 100s, pt resting in bed. Encouraged to contact staff for needs. Frequent rounding in place.
--- NOTE | 2016-12-03 15:50 | NUR ---
[facility] signed 1130 AM
--- NOTE | 2016-12-03 17:03 | PCM.PNMED ---
Subjective Date of Service Dec 03, 2016 Subjective denies any other new issues/complaints Exam Vital Signs Vital Sign - Last Date Time Temp Pulse Resp B/P Pulse Ox O2 Delivery O2 Flow Rate FiO2 12/03/16 16:21 93 18 93 Room Air 12/03/16 14:47 36.6 103/69 12/03/16 08:00 1.50 Intake and Output 12/02/16 12/02/16 12/03/16 Cumulative From/Thru 15:00 23:00 07:00 11/27/16 12:32 - 12/03/16 06:40 Intake Total 1993 ml 617 ml 25705 ml Output Total 1200 ml 600 ml 22151 ml Balance 793 ml 17 ml 610 ml Intake Oral 1993 ml 617 ml 92125 ml IV Total 2449 ml FFP 221 ml Output Urine Total 1200 ml 600 ml 95527 ml Estimated Blood Loss 450 ml # Bowel Movements 1 1 4 Exam General: Alert, Cooperative, No Acute Distress Head: Normal Eyes: Scleral Anicteric Nose: Mucous Membrane Moist/[place] Mouth: Mucous Membrane Moist/[place] Neck: Supple Chest & Lungs: Chest Wall Normal, Clear to auscultation bilaterally Cardiovascular: Regular Rate/Rhythm Abdomen: Non-tender, Non-distended, Normoactive bowel tones, Soft Extremities: No cyanosis/clubbing/edema bilaterally, Other ( stasis changes both lower extremities) Neurological: Grossly Neurologically Intact, Normal Speech IVs and Medications Medications Reviewed: Medications were reviewed in detail Lab and Diagnostics Result Diagram: 12/02/16 0532 12/02/16 0532 Assessment & Plan 70-year-old, white male who was recently hospitalized. He was here from November 02 to , with respiratory failure, CHF, new AFib and a COPD exacerbation. He had a North placed and was [facility]. A few days ago, there was hematuria and some blockages of his catheter. He was seen in the ED, and he was started on her Pyridium, Cipro for UTI. He had his North irrigated and changed. He felt better, and then on this admission he had resumption of hematuria, burning around the catheter site # Acute Hematuria, present on admission. resolved -North in place -continue to hold aspirin and Coumadin for now -gave one unit Fresh Frozen 11/28/16 -appreciate urology consult by Dr. Medina. will f/u w/ recs -voiding trial today per urology consult. # Acute bacteremia with MSSA. present on admission. ongoing -? source -appreciate ID consult. will f/u w/ recs -continue with high-dose cefazolin. -transthoracic echo (TTE) 12/01 was unremarkable -discussed with cardiology (Dr. Thomas) on 12/02/16 who wanted to review TTE again before deciding to move forward with transesophageal echo later this week. Awaiting further recommendation by cardiology # Suspected acute urinary tract infection present on admission. -cultures without significant growth -workup and treatment as noted above # Chronic, AFib, present on admission. Stable. -Continue with patient's metoprolol, rate controlled -patient elects not to restart Coumadin at this time -restart Aspirin when OK by urology -once catheter issue resolved patient can reconsider Coumadin with PCP # Acute blood loss anemia from bladder, poa, stable - f/u # Chronic congestive heart failure secondary to diastolic dysfunction, poa, stable -Continue patient's Lasix. # Chronic obstructive pulmonary disease, present on admission. Stable. -stop prednisone -p.r.n. albuterol, nebulizers, etc. # Hypertension, present on admission. Stable. -Continue patient's beta blockers, metoprolol. # Left leg wound, chronic. Present on admission. -wound care consult if nursing feels necessary # Left Lung Nodule noted on CXR, 11/27/16, poa, active -Out Patient Follow up recommended Dispo: 2-3 days VTE Mechanical Devices: Intermittant Pneumatic CD Aashish Salazar Dec 03, 2016 17:03
--- NOTE | 2016-12-03 22:05 | PROG NOTE ---
[address] [address] PROGRESS NOTE PATIENT: JOSR FONTENOT : 1945 MR#: [id number] ADMIT: 11/27/2016 JOB ID: [id number] DATE: 12/03/2016 REASON FOR FOLLOWUP: MSSA bacteremia of unknown origin. INTERVAL HISTORY: The patient continues to feel quite well. He reports he is now approaching his normal state of health. He has no fevers, chills, or sweats. No significant cough, shortness of breath, nausea, vomiting, diarrhea, or other localizing symptoms. He is gratified that his North catheter has been removed, and we were just notified by the medication aide that the bladder scan showed no significant residual suggesting this was a successful maneuver. PHYSICAL EXAMINATION: Reveals an obese gentleman sitting supine in his bed in no acute distress. Temp 36.6, pulse 91, respiratory rate 18, blood pressure 103/69, saturating 94% on room air. He has no peripheral stigmata of endocarditis, specifically no conjunctival hemorrhages, no Osler's or [place] lesions on his hands. Mental status is clear. Lungs relatively clear. Cardiac tones are irregular rate and rhythm without significant murmur. Abdomen obese but benign. No skin rash. LABORATORIES: Include white count yesterday 10.3, not repeated today. Creatinine 0.48, also yesterday, not repeated today. Blood cultures were positive for Staph aureus, 4/4 bottles, on the date of admission November 27. Follow-ups were negative November 29 and so November 29 will be established as our first day of effective antimicrobial therapy. The patient's transthoracic echo did not show any clear valvular vegetations but a difficult study due to the patient's body habitus. IMPRESSION: This is a patient who came in with gross hematuria which is now resolved and his North is out, but as an incidental finding he was noted to have 4/4 positive blood cultures for methicillin-sensitive Staphylococcus aureus. This is a rather bizarre recurrence and raises the possibility that he has an intravascular focus of infection such as endocarditis. RECOMMENDATIONS: 1. Will continue for now with cefazolin as our only antimicrobial. 2. We await the CATE which will be a critical feature in determining the length of therapy. If the CATE is negative, will treat for four weeks because this was a community-acquired bacteremia of unknown origin and that would take us through December 27. If, on the other hand, the CATE is positive for endocarditis, she will require therapy at least until January 10 as well as a more formal cardiology evaluation to see whether valve replacement or CT surgery might be needed.
[2016-12-04] VITALS (8 sets, daily range): BP systolic 91–102; BP diastolic 51–70; PULSE 78–101; RESP 16–18; O2SAT 90–98
[2016-12-04] MEDS: Albuterol 2.5 mg/3 mL Inhalation Solution NEB PRN (07:40)
[2016-12-04] MEDS: CeFAZolin Inj 2,000 MG in Dextrose 5% 50 ML IV SCH ×3 (09:51→23:33)
[2016-12-04] MEDS: Lactobacillus Rhamnosus 10 Bil Unit Capsule PO SCH ×2 (09:52→19:25)
--- NOTE | 2016-12-04 10:54 | NUR ---
Social Work: Readiness for d/c Data: Pt is on day 7 of hospitalization. EMR reviewed. Pt discussed in rounds. MD states pt likely to d/c tomorrow pending cardiology. 3RD MATE will continue to follow. Assessment: Pt from SNF. Plan: Pt will d/c back to [facility] when medically stable with [facility] to follow. MD states pt likely to d/c tomorrow pending cardiology. 3RD MATE will continue to follow. WILMER Mccain
[2016-12-04] MEDS ORDERED: Sodium Chloride LOK Flush 10 mL Syringe IVFLUSH PRN ×2 (11:25)
--- NOTE | 2016-12-04 13:26 | DRSVH ---
PROCEDURE: X-RAY PICC LINE PLACEMENT BY NURSE ([id number]) INDICATIONS: long distance operator IV abx COMPARISON: None. FINDINGS: PICC was placed by the intravenous therapy team from the right side. Fluoroscopic spot fi lm demonstrates tip projected over the lower SVC. IMPRESSION: Tip of PICC projected over the medial aspect of the lower SVC . Dictated by: Carlos RAMOS Interpreted: Darling Mckay MD on 12/04/2016 at 13:25 Transcribed by: BESSIE on 12/04/2016 at 13:25 Approved by: Darling Mckay M.D. on 12/04/2016 at 15:52
--- NOTE | 2016-12-04 13:29 | PROG NOTE ---
[address] [address] PROGRESS NOTE PATIENT: JOSR FONTENOT : 1945 MR#: [id number] ADMIT: 11/27/2016 JOB ID: [id number] DATE: 12/04/2016 REASON FOR FOLLOWUP: Unexplained high-grade MSSA bacteremia in a patient who actually presented with hematuria. INTERVAL HISTORY: The patient feels great now that his North catheter has been removed. He denies fevers, chills, sweats, cough, shortness of breath, nausea, vomiting, diarrhea, or dysuria. PHYSICAL EXAMINATION: Temp 36.9. Is consistently afebrile throughout this now one week hospital stay. Pulse 96, respiratory rate 18, blood pressure 100/67. O2 saturation only 90%, but he is on room air. He is awake, alert, jovial, no acute distress. Lungs clear. Cardiac tones without significant murmur. Abdomen soft and nontender. No flank tenderness. No skin rash. No peripheral stigmata of endocarditis. Labs have not been done for a couple days. When last checked two days ago his white count was normal and his creatinine was 0.48. He initially had the positive blood cultures with three of four bottles growing Staph aureus and one of four coag-negative staph. All followup blood cultures are negative. IMPRESSION: The patient came in with hematuria, and for unclear reasons, had multiple positive blood cultures for Staphylococcus aureus. High-grade Staph aureus bacteremia in an outpatient is endocarditis until proven otherwise. and we await his CATE. RECOMMENDATIONS: 1. The patient is now okay for a PICC line and will go ahead and order that. 2. Will continue with cefazolin as our antimicrobial choice in this circumstance based on the recent article in [facility] which showed the superiority apparently of cefazolin over nafcillin or oxacillin for this. 3. If his CATE is negative, he will receive IV therapy for his MSSA bacteremia until December 27. If the CATE is positive, it will go until January 10 and we may need additional evaluation by Cardiology.
--- NOTE | 2016-12-04 17:01 | PCM.PNMED ---
Subjective Date of Service Dec 04, 2016 Subjective denies any other new issues/complaints Exam Vital Signs Vital Sign - Last Date Time Temp Pulse Resp B/P Pulse Ox O2 Delivery O2 Flow Rate FiO2 12/04/16 10:33 36.9 96 18 100/67 90 Room Air 12/03/16 08:00 1.50 Intake and Output 12/03/16 12/03/16 12/04/16 Cumulative From/Thru 15:00 23:00 07:00 11/27/16 12:32 - 12/04/16 06:52 Intake Total 994 ml 666 ml 38236 ml Output Total 1425 ml 1700 ml 36102 ml Balance -431 ml -1034 ml -855 ml Intake Oral 994 ml 576 ml 82436 ml IV Total 90 ml 2539 ml FFP 221 ml Output Urine Total 1425 ml 1700 ml 34959 ml Estimated Blood Loss 450 ml # Bowel Movements 4 Exam General: Alert, Cooperative, No Acute Distress Head: Normal Eyes: Scleral Anicteric Nose: Mucous Membrane Moist/[place] Mouth: Mucous Membrane Moist/[place] Neck: Supple Chest & Lungs: Chest Wall Normal, Clear to auscultation bilaterally Cardiovascular: Regular Rate/Rhythm Abdomen: Non-tender, Non-distended, Normoactive bowel tones, Soft Extremities: No cyanosis/clubbing/edema bilaterally, Other ( stasis changes both lower extremities) Neurological: Grossly Neurologically Intact, Normal Speech IVs and Medications Medications Reviewed: Medications were reviewed in detail Lab and Diagnostics Result Diagram: 12/02/16 0532 12/02/16 0532 Assessment & Plan 70-year-old, white male who was recently hospitalized. He was here from November 02 to , with respiratory failure, CHF, new AFib and a COPD exacerbation. He had a North placed and was discharged to long term to recover. A few days ago, there was hematuria and some blockages of his catheter. He was seen in the ED, and he was started on her Pyridium, Cipro for UTI. He had his North irrigated and changed. He felt better, and then on this admission he had resumption of hematuria, burning around the catheter site # Acute Hematuria, present on admission. resolved -North removed on 12/03 -continue to hold Coumadin for now -gave one unit Fresh Frozen 11/28/16 -appreciate urology consult by Dr. Kevwitch. will f/u w/ recs # Acute bacteremia with MSSA. present on admission. ongoing -? source -appreciate ID consult. will f/u w/ recs -continue with high-dose cefazolin. -transthoracic echo (TTE) 12/01 was unremarkable -per cardiology plan for CATE is on Wednesday 12/06 # Suspected acute urinary tract infection present on admission. -cultures without significant growth -workup and treatment as noted above # Chronic, AFib, present on admission. Stable. -Continue with patient's metoprolol, rate controlled -patient elects not to restart Coumadin at this time -restart Aspirin if OK by urology -patient can reconsider Coumadin with PCP # Acute blood loss anemia from bladder, poa, stable - f/u # Chronic congestive heart failure secondary to diastolic dysfunction, poa, stable -Continue patient's Lasix. # Chronic obstructive pulmonary disease, present on admission. Stable. -stop prednisone -p.r.n. albuterol, nebulizers, etc. # Hypertension, present on admission. Stable. -Continue patient's beta blockers, metoprolol. # Left leg wound, chronic. Present on admission. -wound care consult if nursing feels necessary # Left Lung Nodule noted on CXR, 11/27/16, poa, active -Out Patient Follow up recommended Dispo: 3-4 days pending CATE result VTE Mechanical Devices: Intermittant Pneumatic CD Aashish Salazar Dec 04, 2016 17:01
--- NOTE | 2016-12-04 18:30 | NUR ---
PICC PICC line placed per IV therapy this shift. Fluids running tko.
[2016-12-05] VITALS (10 sets, daily range): BP systolic 97–113; BP diastolic 60–82; PULSE 68–103; RESP 16–18; O2SAT 92–96
[2016-12-05 05:18] LABS: Mean Corpuscular Hemoglobin 25.7 pg (27.0-35.0); Mean Corpuscular Volume 87.4 fL (81-100)
[2016-12-05 05:52] LABS: Magnesium 2.2 mg/dL (1.6-2.6)
[2016-12-05] MEDS: CeFAZolin Inj 2,000 MG in Dextrose 5% 50 ML IV SCH ×3 (07:46→23:18)
[2016-12-05] MEDS: Lactobacillus Rhamnosus 10 Bil Unit Capsule PO SCH ×2 (07:47→18:25)
--- NOTE | 2016-12-05 08:20 | NUR ---
Respiratory Pt assessed, found sitting up in bed breathing RA. Sat 90%, HR 89, RR 18, BS scattered coarse with minor, intermittent expiratory wheeze. Pt stated no SOB and no need for Tx at this time. Pt aware of Tx availability, a little confused about prn status vs scheduled, RT explained he needs to call if SOB.
--- NOTE | 2016-12-05 10:30 | NUR ---
[facility] signed WILMER Mccain
--- NOTE | 2016-12-05 12:14 | NUR ---
Telemetry: Notified by technology sales specialist of increase HR to 150s. Patient OOB to toilet then sitting on side of bed. Denies palpitations, lightheadedness, dizziness or shortness of breath. Patient now back to bed, HR 100-110s. Will continue to follow.
--- NOTE | 2016-12-05 16:20 | PCM.PNMED ---
Subjective Date of Service Dec 05, 2016 Subjective denies any other new issues/complaints Exam Vital Signs Vital Sign - Last Date Time Temp Pulse Resp B/P Pulse Ox O2 Delivery O2 Flow Rate FiO2 12/05/16 12:49 37.1 93 18 97/61 94 Room Air 12/03/16 08:00 1.50 Intake and Output 12/04/16 12/04/16 12/05/16 Cumulative From/Thru 15:00 23:00 07:00 11/27/16 12:32 - 12/05/16 06:55 Intake Total 1452 ml 761 ml 26477 ml Output Total 2000 ml 1430 ml 81953 ml Balance -548 ml -669 ml -2072 ml Intake Oral 1452 ml 640 ml 54901 ml IV Total 121 ml 2660 ml FFP 221 ml Output Urine Total 2000 ml 1430 ml 29982 ml Estimated Blood Loss 450 ml # Bowel Movements 0 0 4 Exam General: Alert, Cooperative, No Acute Distress Head: Normal Eyes: Scleral Anicteric Nose: Mucous Membrane Moist/[place] Mouth: Mucous Membrane Moist/[place] Neck: Supple Chest & Lungs: Chest Wall Normal, Clear to auscultation bilaterally Cardiovascular: Regular Rate/Rhythm Abdomen: Non-tender, Non-distended, Normoactive bowel tones, Soft Extremities: No cyanosis/clubbing/edema bilaterally, Other ( stasis changes both lower extremities) Neurological: Grossly Neurologically Intact, Normal Speech IVs and Medications Medications Reviewed: Medications were reviewed in detail Lab and Diagnostics Result Diagram: 12/05/16 0510 12/05/16 0510 Assessment & Plan 70-year-old, white male who was recently hospitalized. He was here from November 02 to , with respiratory failure, CHF, new AFib and a COPD exacerbation. He had a North placed and was discharged to halfway to recover. A few days ago, there was hematuria and some blockages of his catheter. He was seen in the ED, and he was started on her Pyridium, Cipro for UTI. He had his North irrigated and changed. He felt better, and then on this admission he had resumption of hematuria, burning around the catheter site # Acute Hematuria, present on admission. resolved -North removed on 12/03 -continue to hold Coumadin for now -gave one unit Fresh Frozen 11/28/16 -appreciate urology consult by Dr. Kevwitch. will f/u w/ recs # Acute bacteremia with MSSA. present on admission. ongoing -? source -appreciate ID consult. will f/u w/ recs -continue with high-dose cefazolin. -transthoracic echo (TTE) 12/01 was unremarkable -per cardiology plan for CATE is on Wednesday 12/06 # Suspected acute urinary tract infection present on admission. -cultures without significant growth -workup and treatment as noted above # Chronic, AFib, present on admission. Stable. -Continue with patient's metoprolol, rate controlled -patient elects not to restart Coumadin at this time -restarted Aspirin on 12/05 -patient can reconsider Coumadin with PCP # Acute blood loss anemia from bladder, poa, stable - f/u # Chronic congestive heart failure secondary to diastolic dysfunction, poa, stable -Continue patient's Lasix (hold if SBP less than 100) # Chronic obstructive pulmonary disease, present on admission. Stable. -stop prednisone -p.r.n. albuterol, nebulizers, etc. # Hypertension, present on admission. Stable. -Continue patient's beta blockers, metoprolol. # Left leg wound, chronic. Present on admission. -wound care consult if nursing feels necessary # Left Lung Nodule noted on CXR, 11/27/16, poa, active -Out Patient Follow up recommended Dispo: 2-3 days pending CATE result VTE Mechanical Devices: Intermittant Pneumatic CD Aashish Salazar Dec 05, 2016 16:19
[2016-12-06] VITALS (8 sets, daily range): BP systolic 91–111; BP diastolic 53–68; PULSE 74–102; RESP 18; O2SAT 91–95
[2016-12-06] MEDS ORDERED: Benzoc-Butamben-Tetraca Spray 20 Gm Spray TOPICAL ONE (06:00)
[2016-12-06] MEDS ORDERED: fentaNYL-PF 50 mCg/mL 2 mL Inj IVPUSH PRN (06:00)
[2016-12-06] MEDS ORDERED: 0.9% Sodium Chloride 1,000 ML IV ONE (07:30)
[2016-12-06] MEDS: CeFAZolin Inj 2,000 MG in Dextrose 5% 50 ML IV SCH ×3 (07:36→23:14)
[2016-12-06] MEDS: Lactobacillus Rhamnosus 10 Bil Unit Capsule PO SCH ×2 (07:37→16:53)
--- NOTE | 2016-12-06 13:25 | PCM.PNMED ---
Subjective Date of Service Dec 06, 2016 Subjective denies any other new issues/complaints Exam Vital Signs Vital Sign - Last Date Time Temp Pulse Resp B/P Pulse Ox O2 Delivery O2 Flow Rate FiO2 12/06/16 10:45 84 12/06/16 10:05 36.8 18 93/58 91 Room Air 12/03/16 08:00 1.50 Intake and Output 12/05/16 12/05/16 12/06/16 Cumulative From/Thru 15:00 23:00 07:00 11/27/16 12:32 - 12/06/16 06:19 Intake Total 1538 ml 395 ml 13525 ml Output Total 1825 ml 1220 ml 01822 ml Balance -287 ml -825 ml -3184 ml Intake Oral 1370 ml 300 ml 43029 ml IV Total 168 ml 95 ml 2923 ml FFP 221 ml Output Urine Total 1825 ml 1220 ml 59788 ml Estimated Blood Loss 450 ml # Voids 1 1 # Bowel Movements 1 0 5 Exam General: Alert, Cooperative, No Acute Distress Head: Normal Eyes: Scleral Anicteric Nose: Mucous Membrane Moist/[place] Mouth: Mucous Membrane Moist/[place] Neck: Supple Chest & Lungs: Chest Wall Normal, Clear to auscultation bilaterally Cardiovascular: Regular Rate/Rhythm Abdomen: Non-tender, Non-distended, Normoactive bowel tones, Soft Extremities: No cyanosis/clubbing/edema bilaterally, Other ( stasis changes both lower extremities) Neurological: Grossly Neurologically Intact, Normal Speech IVs and Medications Medications Reviewed: Medications were reviewed in detail Lab and Diagnostics Result Diagram: 12/05/16 0510 12/05/16 0510 Assessment & Plan 70-year-old, white male who was recently hospitalized. He was here from November 02 to , with respiratory failure, CHF, new AFib and a COPD exacerbation. He had a North placed and was discharged to alf to recover. A few days ago, there was hematuria and some blockages of his catheter. He was seen in the ED, and he was started on her Pyridium, Cipro for UTI. He had his North irrigated and changed. He felt better, and then on this admission he had resumption of hematuria, burning around the catheter site # Acute Hematuria, present on admission. resolved -North removed on 12/03 -continue to hold Coumadin for now -gave one unit Fresh Frozen 11/28/16 -appreciate urology consult by Dr. Medina. will f/u w/ recs # Acute bacteremia with MSSA. present on admission. ongoing -? source -appreciate ID consult. will f/u w/ recs -continue with high-dose cefazolin. -transthoracic echo (TTE) 12/01 was unremarkable -per cardiology plan for CATE is on Thursday 12/07 # Suspected acute urinary tract infection present on admission. -cultures without significant growth -workup and treatment as noted above # Chronic, AFib, present on admission. Stable. -Continue with patient's metoprolol, rate controlled -patient elects not to restart Coumadin at this time -restarted Aspirin on 12/05 -patient can reconsider Coumadin with PCP # Acute blood loss anemia from bladder, poa, stable - f/u # Chronic congestive heart failure secondary to diastolic dysfunction, poa, stable -Continue patient's Lasix (hold if SBP less than 100) # Chronic obstructive pulmonary disease, present on admission. Stable. -stop prednisone -p.r.n. albuterol, nebulizers, etc. # Hypertension, present on admission. currently with acute hypotension. -give gentle IVF and followup BP -Continue patient's beta blockers, metoprolol. # Left leg wound, chronic. Present on admission. -wound care consult if nursing feels necessary # Left Lung Nodule noted on CXR, 11/27/16, poa, active -Out Patient Follow up recommended Dispo: 2-3 days pending CATE result VTE Mechanical Devices: Intermittant Pneumatic CD Aashish Salazar Dec 06, 2016 13:25
--- NOTE | 2016-12-06 15:15 | NUR ---
Activity: Patient ambulated from room to south end of hallway. Notified by emanations analysis technician HR increases to 140s. Patient short of breath. Ambulated back to bed, sat on edge of bed. After resting for approx 2-3 minutes, patient states he is no longer short of breath. Patient now A fib 80s per emanations analysis technician. aware.
[2016-12-06] MEDS: Sodium Chloride LOK Flush 10 mL Syringe IVFLUSH SCH (16:30)
[2016-12-06] MEDS: 0.9% Sodium Chloride 1,000 ML IV SCH (16:53)
--- NOTE | 2016-12-06 21:29 | CONS ---
[address] [address] CONSULTATION REPORT PATIENT: JOSR FONTENOT : 1945 MR#: [id number] ADMIT: 11/27/2016 JOB ID: [id number] DATE OF SERVICE: 12/06/2016 IDENTIFICATION: Dr. Evan Wan has asked that I consult on this 70-year-old male for consideration of transesophageal echocardiography. HISTORY: The patient has no previous cardiac history except for hypertension and chronic lower extremity edema until he was admitted on November 02, 2016 with hypoxia and scrotal edema with a chest x-ray, concerning for CHF. He was found to be in atrial fibrillation at 102 BPM. An echocardiogram at that time showed an ejection fraction of 65-70% with mild LVH with moderately severe pulmonary hypertension with a PA pressure estimated at 61 mmHg but no significant valvular disease. He was treated with IV diuresis and COPD exacerbation. A CT angiogram suggested possibility of a small distal pulmonary embolism. He was discharged on November 08, 2016 on warfarin, metoprolol and continuation of his furosemide. He subsequently developed hematuria and was re-admitted on November 27, 2016 with weakness, hematuria, and evidence of a urinary tract infection. Subsequent blood cultures have been positive for high-grade infection of MSSA. He was evaluated by Dr. Wan and had an echocardiogram performed that showed, again, normal LV systolic function without any significant valvular abnormality or any obvious vegetation. Pulmonary artery pressures were now around 46 mmHg with a CVP of 8 mmHg. On the basis of his positive blood cultures, Dr. Wan is requested at transesophageal echocardiogram. The patient states that his scrotal edema has now resolved with diuretic therapy. He is he has had no fevers or chills. He has chronic mild exertional dyspnea but denies any orthopnea, or PND. He has had no chest discomfort. He has been completely unaware of any atrial fibrillation, palpitations or lightheadedness. He denies any neurologic symptoms and has had no extremity pain. PAST MEDICAL HISTORY: Notable for hypertension, COPD with a 50 year history of smoking, stopped it one month ago. He has a chronic leg infection. He is status post gastric bypass 15 years ago with a history of obstructive sleep apnea. He has had BPH and an appendectomy. FAMILY HISTORY: He is adopted. SOCIAL HISTORY: The patient is . He rarely drinks alcohol. 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 REVIEW OF SYSTEMS: He denies any previous problems with his esophagus and specifically denies any dysphagia, swallowing problems, or GI bleeding. He has never had any problems with anesthesia. PHYSICAL EXAMINATION: Pleasant, severely obese, white male, in no distress. HR 90 with telemetry suggesting heart rates generally in the 80-110 range. BP 93/56, O2 saturation 91% on room air. Skin: Warm and dry. HEENT: EOMI. He is edentulous. Lungs: Reduced breath sounds bilaterally but without any rales or wheeze. CV: Irregularly irregular rhythm without any appreciable murmurs or gallops. JVP is around 6-7 cm. Abdomen: Moderately obese but nondistended, nontender without any significant hepatosplenomegaly. Extremities: Trace bilateral pitting edema. LABORATORY: White count is 10.6 with hematocrit of 36. Potassium is 4.5 with a BUN of 31 and a creatinine of 0.4. ECG on admission shows atrial fibrillation at 125 BPM with low-voltage QRS with probable right ventricular hypertrophy. IMPRESSION: 1. Bacteremia with Staph aureus. He has a clear indication for transesophageal echocardiography to attempt to provide further documentation of the presence or absence of endocarditis. I have explained to him the transesophageal echocardiogram as well as the alternatives and potential risks of the procedure. He agrees to proceed. I will schedule this for sometime tomorrow. He will need to be nil per os after midnight. 2. Atrial fibrillation with borderline heart rate control. He appears to be asymptomatic. He may benefit from additional rate control; but I would simply continue with his current medications for now. 3. Pulmonary hypertension with probable cor pulmonale from chronic obstructive pulmonary disease. His oxygenation appears to be adequate to proceed with the procedure. PLAN: 1. NPO after midnight. 2. Transesophageal echocardiogram tomorrow with further recommendations dependent upon those results. 3. Consider additional rate-controlling therapy as well as possible increase in his diuretic, but this will be deferred to the hospitalist. TIME SPENT: I spent a total of 54 minutes reviewing the patient's chart, reviewing his previous echocardiogram, interviewing and examining the patient, and answering his questions and documenting such.
[2016-12-07] VITALS (8 sets, daily range): BP systolic 91–118; BP diastolic 56–78; PULSE 75–99; RESP 16–18; O2SAT 90–94
--- NOTE | 2016-12-07 00:28 | NUR ---
A-Fib RVR Tele reports at 0015 A-fib HR 149 nonsustained,then back to 90s a-fib. Asymptomatic. Dr. Lantigua paged at 0025, Metoprolol 12.5mg po BID ordered and will be given. Ok to give oral meds with sips of water despite pt NPO per Dr. Lantigua.
[2016-12-07] MEDS: Sodium Chloride LOK Flush 10 mL Syringe IVFLUSH SCH ×3 (00:30→16:30)
[2016-12-07] MEDS: 0.9% Sodium Chloride 1,000 ML IV SCH ×2 (03:42→12:48)
--- NOTE | 2016-12-07 06:58 | NUR ---
O2 Desat to 86% on RA when sleeping, O 2 1l applied,SPO2 91-94% per nc. HYDROGRAPHICAL TECHNICAL OFFICER monitoring applied per TAYA protocol.
[2016-12-07] MEDS: CeFAZolin Inj 2,000 MG in Dextrose 5% 50 ML IV SCH ×3 (07:44→22:33)
[2016-12-07] MEDS: Lactobacillus Rhamnosus 10 Bil Unit Capsule PO SCH ×2 (07:48→17:48)
--- NOTE | 2016-12-07 10:23 | PROG NOTE ---
[address] [address] PROGRESS NOTE PATIENT: JOSR FONTENOT : 1945 MR#: [id number] ADMIT: 11/27/2016 JOB ID: [id number] DATE: 12/07/2016 REASON FOR FOLLOWUP: Unexplained high-grade MSSA bacteremia. INTERVAL HISTORY: Over the weekend, the patient has been comfortable with no fevers, chills, or sweats. No significant headache, shortness of breath, cough, or chest pain. No nausea, vomiting, or diarrhea. PHYSICAL EXAMINATION: Reveals an afebrile gentleman, temperature 36.7, pulse 76, respiratory rate 16, blood pressure 98/62 saturating fairly well on room air 99% saturation. The patient's mental status is clear. No conjunctival hemorrhages. Oral cavity without thrush, pharyngitis, or palatal petechia. Lungs reasonably clear. Cardiac tones without new murmur. Abdomen soft and nontender. LABORATORIES: Include white count 10,600, platelets 221. Creatinine 0.45. Blood cultures from admission on the there is multiple blood cultures for MSSA. Since then, all followups have been negative. A PICC line was placed on December 04. IMPRESSION: 1. This patient has an unexplained methicillin sensitive Staphylococcus aureus bacteremia, which was noted when he came in for gross hematuria. Recall that his urine culture did not grow methicillin sensitive Staphylococcus aureus which is of interest in any event. The patient now has a PICC line and is ready for a prolonged course of IV cefazolin. If his CATE is negative we plan to go through December 27. If the CATE is positive will go to January 10. 2. This case discussed with Dr. Manzo who will be performing a CATE later today.
--- NOTE | 2016-12-07 13:00 | NUR ---
Off Unit: Patient transported to [facility] for CATE @ approx 1300 via wheelchair. lead based paint technician notified. No apparent distress at time of transport.
[2016-12-07] MEDS ORDERED: Propofol 10,000 mCg/mL 20 mL Inj ONE (13:15)
--- NOTE | 2016-12-07 13:45 | PCM.HPANE ---
Patient Data Date of Service: Dec 07, 2016 Surgeon Admitting Provider:Kym Winter MD Attending Provider:Kym Winter MD Primary [facility] Physician[facility] Other Provider: Reason for Visit Uti, Afib W/Rvr, Hematuria UTI, AFIB W/RVR, HEMATURIA Ht/WT & BMI Height (Feet): 6 Height (Inches): 3.00 Weight (Kilograms): 144.800 Body Mass Index 40.02 Allergies Coded Allergies: No Known Allergies (Unverified , 11/02/16) Past Anesthesia History Anesthesia History: Denies:: Anesthesia Reactions Diabetes History Hx Diabetes?: No MRSA MRSA: No Medications Hypertension Medication: Yes Home Meds Incl Beta Vic: Yes Date Beta Vic Taken: Dec 07, 2016 Previous Beta Vic Dose >24: Previous Dose <24 Hours Active Scripts Metoprolol Tartrate 25 Mg Spftjy50.5 Mg PO BID #60 TABLET Prov:Juan Aceves MD 11/08/16 Hydrocodone-Acetaminophen 5-325 mg 1 Each Tablet1 Tablet PO TID PRN For Pain # 30 TABLET Ref 0 Prov:Juan Aceves MD 11/08/16 Alfuzosin ER 10 Mg Tab.er.24h10 Mg PO DAILY #1 TABLET Prov:Jhon Hwang 07/22/16 Reported Medications Acetaminophen 325 Mg Qnhuze500 Mg PO Q4H PRN For Pain 11/27/16 Phenazopyridine (Pyridium)200 Mg Iqepjq493 Mg PO TID PRN For Pain x3 days staring 11/25/16 11/27/16 Ciprofloxacin (Cipro)500 Mg Btwhpq851 Mg PO BID x5 days starting 11/25/16 11/27/16 Lactobacillus Acidophilus (Acidophilus)1 Each Tablet2 Each PO BID x7 days starting 11/25/16 11/27/16 Prednisone (PredniSONE)5 Mg Tab5 Mg PO DAILY start 12/03/16 for 5 days 11/27/16 Prednisone (PredniSONE)20 Mg Oeetty54 Mg PO DAILY start 11/23/16 for 5 days 11/27/16 Prednisone (PredniSONE)10 Mg Taskyf14 Mg PO DAILY start 11/28/16 for 5 days 11/27/16 Warfarin Sodium 7.5 Mg Tablet7.5 Mg PO DAILY 30 Days 11/27/16 Aspirin Chew 81 Mg Chew81 Mg PO DAILY Ref 0 11/02/16 Cyanocobalamin (Vitamin B-12) (Vitamin B-12)1,000 Mcg Tablet1,000 Mcg PO DAILY 11/02/16 Cholecalciferol (Vitamin D3) (Children's Vitamin D3)1,000 Unit Tab.chew2,000 Unit PO DAILY 11/02/16 Furosemide 40 Mg Csrihx63 Mg PO BIDWM 11/02/16 Albuterol HFA (Proair HFA)8.5 Gm Hfa.aer.ad2 Puffs INHALATION Q4H PRN For Shortness of Breath #1 INHALER 11/02/16 History History of ENT Problems?: Yes HEENT History: Positive for:: Dysphagia Denture Type: Full- Upper Full- Lower Hx of Heart Problems?: Yes Cardiovascular History: Positive for:: Congestive Heart Failure Hypertension Irregular Heartbeat (afib) Hx of Respiratory Problem?: Yes Respiratory History: Positive for:: Asthma ("40 years ago") COPD Denies:: Chest Surgery Tuberculosis Other Resp Pertinent History: hx of acute RF Hx Neurologic Problems?: No Hx of GI Problems?: Yes Other GI Pertinent History: hx stomach bypass sry and appendectomy Hx of Problems?: Yes Genitourinary History: Positive for:: Urinary Tract Infection (current, with hematuria, hx indwelling folley) Male Hx: Positive for:: Prostate Problems (BPH) Other Skin Pertinent History: chronic venous insufficiency ulcer lover left extremity Hx Musculoskeletal Problems?: Yes Hx of Psycho/Social Problems?: No Hx Surgeries?: Yes (appy/gastric bypass) Hx Any Other Health Problems?: Yes Other History: Denies:: Cancer Thyroid Disease History Blood Transfusions: Denies:: Blood Transfusions Hx Diabetes: No Hx Alcohol Use: NoHx Substance Use: No Smoking Status: Current Every Day Smoker Have You Smoked inLast 12 mo: Yes Stop/Bang Treated for Sleep Apnea?: No Do You Have a CPAP Machine?: No S-Snoring: Do You Snore Loudly: No T-Tired: feel tired, fatigued: Yes O-Obsered: Observed not breath: No P-Blood Pressure: treated: Yes B- Body Mass Index > 35 kg/m2: Yes A- Age over 50: Yes N- Neck Large Circumference: No G- Gender Male: Yes TAYA Total Score: 5 TAYA Risk Assessment: High Risk, =/>3 Yes TAYA Category 2: Yes Risk Assessment Category Category 1A: Patient has history of documented sleep apnea, and HAS NOT received any narcotic, sedative or anesthesia administration during this stay. Category 1B: Patient has history of documented sleep apnea, and HAS received any narcotic , sedative or anesthesia administration during this stay Category 2: Patient has SUSPECTED Obstructive Sleep Apnea, and HAS received any narcotic , sedative or anesthesia administration during this stay. Category 3: Patient has SUSPECTED Obstructive Sleep Apnea and HAS NOT received narcotic, sedative or anesthesia administration during this stay. Category 4: Outpatient in Procedural Areas with known sleep apnea or who screen positive for High Risk via the STOP/BANG questionnaire. Exam Exam Vital Signs Vital Signs Date Time Temp Pulse Resp B/P Pulse Ox O2 Delivery O2 Flow Rate FiO2 12/07/16 10:32 75 12/07/16 08:01 76 16 90 Room Air 12/07/16 07:52 Supplement Oxygen 12/07/16 07:40 76 98/62 90 Room Air General Appearance: Alert, Oriented X3, Cooperative, No Acute Distress HEENT/AIRWAY: MP 3, Other (edentulous, tmd >3 fb) Lungs: Diminished Heart: Normal S1, Normal S2, Other (irregularly irregular rhythm, normal rate) Meds/Labs/Diagnostics Admission Meds Current Medications Sodium Chloride (Normal Saline) 1,000 ml @ 100 mls/hr Q10H IV Last administered on 12/07/16 12:48; Start 12/06/16 at 15:36 Metoprolol Tartrate (Lopressor) 12.5 mg BID PO Last administered on 12/07/16 07:48; Start 12/07/16 at 00:30 Labs Test 11/27/16 12:24 11/27/16 12:33 11/27/16 12:35 11/27/16 14:47 Hold Abbasi Top Tube Received (Received) Total Bilirubin 0.6mg/dL (0.0-1.2) Aspartate Amino Transf (AST/SGOT) 19U/L (0-50) Alanine Aminotransferase (ALT/SGPT) 23U/L (0-44) Alkaline Phosphatase 110U/L (25-160) Total Protein 7.6g/dL (6.4-8.4) Albumin 3.4g/dL (3.4-5.0) Lactic Acid Level 1.3mmol/L (0.4-2.0) Urine Color Red (YELLOW) Urine Appearance Turbid (CLEAR,HAZY) Urine pH (5.0-8.0) Urine Specific Ruth 1.015 (1.003-1.035) Urine Protein mg/dL (NEG,TRACE) Urine Glucose (UA) mg/dL (NEGATIVE) Urine Ketones mg/dL (NEGATIVE) Urine Occult Blood (NEGATIVE) Urine Nitrite (NEGATIVE) Urine Bilirubin (NEGATIVE) Urine Urobilinogen mg/dL (NORMAL) Urine Leukocyte Esterase (NEGATIVE) Urine RBC Packed/hpf (0-2) Urine WBC 11-50/hpf (0-5) Urine Epithelial Cells Occasional/hpf (NONE-MOD) Urine Crystals None seen (NONE SEEN) Urine Bacteria Few/hpf (NONE-FEW) Urine Hyaline Casts None/lpf (NONE) Urine Granular Casts None seen (NONE SEEN) Urine Waxy Casts None seen (NONE SEEN) Urine Red Blood Cell Casts None seen (NONE SEEN) Urine White Blood Cell Casts None seen (NONE SEEN) Urine Mucus None seen (None Seen) Urine Trichomonas None seen (NONE SEEN) Urine Yeast None (NONE SEEN) Urinalysis Comment Color interference Urine Culture Reflexed Indicated Test 11/30/16 05:45 12/02/16 05:32 12/05/16 05:10 Neutrophils (%) (Auto) 55.5% (40-74) Lymphocytes (%) (Auto) 33.6% (14-46) Monocytes (%) (Auto) 6.9% (4-12) Eosinophils (%) (Auto) 2.3% (0-5) Basophils (%) (Auto) 0.4% (0-3) Procalcitonin 0.17ng/mL (0.00-0.08) Prothrombin Time 12.0sec (8.1-12.5) Prothromb Time International Ratio 1.12ratio White Blood Count 10.6th/mm3 (3.8-10.1) Red Blood Count 4.12mil/mm3 (4.40-5.80) Hemoglobin 10.6g/dL (13.8-17.2) Hematocrit 36.0% (41.0-50.0) Mean Corpuscular Volume 87.4fL (81-100) Mean Corpuscular Hemoglobin 25.7pg (27.0-35.0) Mean Corpuscular Hemoglobin Concent 29.4% (32.0-37.0) Red Cell Distribution Width 20.9% (12.3-15.4) Platelet Count 221bil/L (150-400) Sodium Level 142mEq/L (134-144) Potassium Level 4.5mEq/L (3.5-5.2) Chloride Level 101mEq/L (97-108) Carbon Dioxide Level 31mmol/L (18-29) Blood Urea Nitrogen 14mg/dL (8-27) Creatinine 0.45mg/dL (0.76-1.27) Estimat Glomerular Filtration Rate 197mL/min (>59) Glucose Level 95mg/dL (60-99) Calcium Level 9.0mg/dL (8.5-10.1) Magnesium Level 2.2mg/dL (1.6-2.6) Plan Impression Patient chart reviewed, patient interviewed and anesthestic plan with risks, benefits, and alternatives discussed, and informed consent obtained. NPO Status: appropriate ASA Physical Status: ASA3 Severe Disease (CHF, COPD, Afib, morbid obesity) Anesthetic Plan: TIVA Bene/Risks/Altern/Consents: Yes HP Complete Prior to Induction: Yes Emigdio Obrien MD Dec 07, 2016 13:45
[2016-12-07] MEDS ORDERED: Ondansetron 2 mg/mL 2 mL Inj IVPUSH PRN (14:00)
[2016-12-07] MEDS ORDERED: HYDROcodone-APAP 5-325 mg Tablet PO PRN (14:00)
[2016-12-07] MEDS ORDERED: 0.9% Sodium Chloride 1,000 ML IV ONE (14:00)
--- NOTE | 2016-12-07 14:11 | PCM.PNMED ---
Subjective Date of Service Dec 07, 2016 Subjective denies any other new issues/complaints Exam Vital Signs Vital Sign - Last Date Time Temp Pulse Resp B/P Pulse Ox O2 Delivery O2 Flow Rate FiO2 12/07/16 10:32 75 12/07/16 08:01 16 90 Room Air 12/07/16 07:40 98/62 12/07/16 05:02 36.7 1.00 Intake and Output 12/06/16 12/06/16 12/07/16 Cumulative From/Thru 15:00 23:00 07:00 11/27/16 12:32 - 12/07/16 05:41 Intake Total 2033 ml 1179 ml 43671 ml Output Total 400 ml 85071 ml Balance 1633 ml 1179 ml -372 ml Intake Oral 1152 ml 45243 ml IV Total 881 ml 1179 ml 4983 ml FFP 221 ml Output Urine Total 400 ml 30680 ml Estimated Blood Loss 450 ml # Voids 1 # Bowel Movements 0 5 Exam General: Alert, Cooperative, No Acute Distress Head: Normal Eyes: Scleral Anicteric Nose: Mucous Membrane Moist/Boaz Mouth: Mucous Membrane Moist/Boaz Neck: Supple Chest & Lungs: Chest Wall Normal, Clear to auscultation bilaterally Cardiovascular: Regular Rate/Rhythm Abdomen: Non-tender, Non-distended, Normoactive bowel tones, Soft Extremities: No cyanosis/clubbing/edema bilaterally, Other ( stasis changes both lower extremities) Neurological: Grossly Neurologically Intact, Normal Speech IVs and Medications Medications Reviewed: Medications were reviewed in detail Lab and Diagnostics Result Diagram: 12/05/16 0510 12/05/16 0510 Assessment & Plan 70-year-old, white male who was recently hospitalized. He was here from November 02 to , with respiratory failure, CHF, new AFib and a COPD exacerbation. He had a North placed and [facility]. A few days ago, there was hematuria and some blockages of his catheter. He was seen in the ED, and he was started on her Pyridium, Cipro for UTI. He had his North irrigated and changed. He felt better, and then on this admission he had resumption of hematuria, burning around the catheter site # Acute Hematuria, present on admission. resolved -North removed on 12/03 -continue to hold Coumadin for now -gave one unit Fresh Frozen 11/28/16 -appreciate urology consult by Dr. Medina. will f/u w/ recs # Acute bacteremia with MSSA. present on admission. ongoing -? source -appreciate ID consult. will f/u w/ recs -continue with high-dose cefazolin. -transthoracic echo (TTE) 12/01 was unremarkable -plan for CATE later today # Suspected acute urinary tract infection present on admission. -cultures without significant growth -workup and treatment as noted above # Chronic, AFib, present on admission. Stable. -Continue with patient's metoprolol, rate controlled -patient elects not to restart Coumadin at this time -restarted Aspirin on 12/05 -patient can reconsider Coumadin with PCP # Acute blood loss anemia from bladder, poa, stable - f/u # Chronic congestive heart failure secondary to diastolic dysfunction, poa, stable -Continue patient's Lasix (hold if SBP less than 100) # Chronic obstructive pulmonary disease, present on admission. Stable. -stop prednisone -p.r.n. albuterol, nebulizers, etc. # Hypertension, present on admission. currently with acute hypotension. -give gentle IVF and followup BP -Continue patient's beta blockers, metoprolol. # Left leg wound, chronic. Present on admission. -wound care consult if nursing feels necessary # Left Lung Nodule noted on CXR, 11/27/16, poa, active -Out Patient Follow up recommended Dispo: 1-2 days pending CATE result VTE Mechanical Devices: Intermittant Pneumatic CD Aashish Salazar Dec 07, 2016 14:11
--- NOTE | 2016-12-07 16:42 | PCM.ANEP1 ---
Post Anesthesia Phase 1 PACU Phase 1 Assessment Date of Service: Dec 07, 2016 Vital Signs Vital Signs Date Time Temp Pulse Resp B/P Pulse Ox O2 Delivery O2 Flow Rate FiO2 12/07/16 16:34 36.6 84 18 91/56 90 Room Air 12/07/16 15:39 Supplement Oxygen 12/07/16 10:32 75 Anesthetic Administered: TIVA Level of Alertness: Sleepy, easy to arouse GARVIN's with Equal Strength: Yes Pain: Yes (2-10) Pain Scale Score: 2 Nausea or Vomiting: No Oxygen Delivery: Nasal Cannula Lungs: Diminished Dermatome Level: Full Sensation Emigdio Obrien MD Dec 07, 2016 16:42
--- NOTE | 2016-12-07 16:43 | PCM.ANEP2 ---
Post Anesthesia Evaluation ASA/CMS Post Anesthesia Date of Service: Dec 07, 2016 VS in Patient's Normal Range?: Yes Resp Stable; Airway Patent?: Yes CV Function & Hydration Stable: Yes Mental Status Recovered?: Yes Pain control Satisfactory?: Yes N/V Control Satisfactory?: Yes Emigdio Obrien MD Dec 07, 2016 16:43
--- NOTE | 2016-12-07 17:47 | DRSVH ---
[facility] [address] [place] [address] Echocardiogram Report Name: JOSR FONTENOT Date : 12/07/2016 Height: 75 in Hospital Exam Location: [facility] Weight: 31 3 lb Gender: Male BSA: 2.7 m2 : 1945 Age: 71 yrs BP: 112/72 mmHg Reason For Study: Atrial fibrillation Performed By: Pushpa Santiago Referring Physician: FRAN COLINDRES Interpretation Summary The left ventricle is normal in size, wall thickness, and systolic function without any focal wall motion abnormalities with the ejection fraction is estimated to be 60-65%. The right ventricle is moderately dilated and right ventricular systolic function is at the lower limits of normal. No left atrial mass or thrombus visualized. The interatrial septum is intact with no evidence for an atrial septal defect or Doppler evidence for an interatrial shunt. The mitral valve is normal. There is no vegetation seen on the mitral valve. There is trace mitral regurgitation. The aortic valve is slightly calcified but there is no mobile structure to suggest a valvular vegetation. The tricuspid valve is not well visualized, but is grossly normal and there is no obvious tricuspid valve vegetation. There is moderate tricuspid regurgitation. The pulmonic valve is not well seen, but is grossly normal without obvious vegetation on the pulmonic valve. There is mild pulmonic regurgitation. Procedure: Informed consent for Transesophageal Echocardiogram, and use of a contrast agent as needed, was obtained prior to the procedure. The patient was brought to the [facility] in a fasting state. Sedation was managed by anesthesiologist; see anesthesiology notes for details. The transesophageal probe was passed without difficulty. A multifrequency, multiplane transesopheageal echocardiographic endoscope was inserted and manipulated in the standard fashion to achieve multiplane views. There were no complications. Left Ventricle: The left ventricle is normal in size, wall thickness, and systolic function without any focal wall motion abnormalities. The ejection fraction is estimated to be 60-65%. Right Ventricle: The right ventricle is moderately dilated. Right ventricular systolic function is at the lower limits of normal. Atria: No left atrial mass or thrombus visualized. The interatrial septum is intact with no evidence for an atrial septal defect. There is no Doppler evidence for an interatrial shunt. Mitral Valve: The mitral valve is normal. There is no vegetation seen on the mitral valve. There is trace mitral regurgitation. Aortic Valve: The aortic valve is trileaflet. The aortic valve opens well. The aortic valve is slightly calcified. There is no aortic valvular vegetation. No aortic regurgitation is present. Tricuspid Valve: The tricuspid valve leaflets are thin and pliable. The tricuspid valve is not well visualized. The tricuspid valve is not well visualized, but is grossly normal. There is no tricuspid valve vegetation. There is moderate tricuspid regurgitation. Pulmonic Valve: The pulmonic valve is not well seen, but is grossly normal. There is no vegetation on the pulmonic valve. There is mild pulmonic regurgitation. Pericardium/ Pleura: There is no pericardial effusion. Reading Physician:05:46 PM
[2016-12-08] MEDS: 0.9% Sodium Chloride 1,000 ML IV SCH ×2 (00:13→07:36)
[2016-12-08] MEDS: Sodium Chloride LOK Flush 10 mL Syringe IVFLUSH SCH ×2 (00:13→08:10)
[2016-12-08 00:38] VITALS: BP 100/66; PULSE 86; RESP 16; O2SAT 93
--- NOTE | 2016-12-08 04:01 | NUR ---
PICC Occluded PICC Occluded, will notify IV therapy and day shift RN this am. Peripheral IV placed at left hand and NS 100ml restarted. Lab staff notified for lab draw peripherally. Addendum: 12/08/16 at 0422 by KRYS TYLER RN Peripheral IV frequently stops when pt move or bend his hand, pt annoyed by IV alarm, refuses place new IV in or place wrist board, unable to convince pt to continue IV fluid, he want to wait PICC to be fixed this am. Addendum: 12/08/16 at 0651 by KRYS TYLER RN Message left to IV therapy via Vocera that PICC occluded.
[2016-12-08 06:13] LABS: BASOPHILS % (AUTO) 0.2 % (0-3); NEUTROPHILS % (AUTO) 72.4 % (40-74)
[2016-12-08 06:18] LABS: EOSINOPHILS % (AUTO) 1.7 % (0-5); MONOCYTES % (AUTO) 6.9 % (4-12); Mean Corpuscular Hemoglobin 25.5 pg (27.0-35.0); Mean Corpuscular Volume 89.6 fL (81-100); Platelet Count 251 bil/L (150-400)
[2016-12-08 06:24] VITALS: BP 102/69; PULSE 77; RESP 16; O2SAT 91
[2016-12-08] MEDS: Lactobacillus Rhamnosus 10 Bil Unit Capsule PO SCH (08:07)
[2016-12-08] MEDS: CeFAZolin Inj 2,000 MG in Dextrose 5% 50 ML IV SCH (08:27)
[2016-12-08 08:37] VITALS: PULSE 84; RESP 18; O2SAT 91
--- NOTE | 2016-12-08 10:11 | NUR ---
Called and left message for Carolynn in admissions at [facility], let her know patient is likely to discharge today. Updated [employer]
[2016-12-08 10:33] VITALS: PULSE 92
[2016-12-08] MEDS ORDERED: CEFA2PIG IV (10:57)
--- NOTE | 2016-12-08 11:07 | PCM.DIMED ---
Discharge Instructions Date of Service Dec 08, 2016 Dates of Hospitalization Nov 27, 2016 at 16:00 Discharge Diagnosis Discharge Diagnosis # Acute hematuria, present on admission. Resolved # Acute bacteremia with MSSA. Present on admission. Under treatment with IV antibiotics. # Suspected acute urinary tract infection on admission ruled out with negative cultures. # Chronic Atrial Fibrillation, present on admission. Stable. -Will need to followup with primary care provider to decide if and when to restart Coumadin # Acute blood loss anemia from bladder, present on admission. Stable without need for transfusion. # Chronic congestive heart failure secondary to diastolic dysfunction. Stable # Chronic obstructive pulmonary disease, present on admission. Stable. # Hypertension, present on admission. Well controlled. # Left leg wound, chronic. Present on admission. # Left Lung Nodule noted on chest X-ray on 11/27/16 - Out Patient follow up with primary care provider recommended Diet Low fat, Low Sodium, Heart Healthy Activity Other (as tolerated and per physical therapy) Patient Instructions Follow-up plan 1. Followup with primary care provider in about one week. 2. Followup with urology (Dr. Medina or one referred by your primary care provider) in about 3-4 weeks for consideration of outpatient cystoscopy [facility] [address] [place] [id number] Follow-up Provider: [facility] Aashish Salazar Dec 08, 2016 11:07
[2016-12-08 11:12] VITALS: BP 105/62; PULSE 87; RESP 18; O2SAT 92
--- NOTE | 2016-12-08 13:14 | NUR ---
Social Work: Readiness for d/c Data: Pt is on day 11 of hospitalization. EMR reviewed. Pt discussed in rounds. MD states pt likely to d/c today with IVABX cefazolin at [facility]. SW met with pt at bedside to confirm discharge plan. Pt had expressed concern to MD that he is not eligible for full amount of SNF days required. SW contacted [facility] and they confirmed that the pt is eligible for an additional 80 days. SW provided this info to pt. [facility] to provide transport at discharge. Paperwork in chart. No further needs assessed. [employer] will continue to follow. Assessment: Pt from SNF who needs 4-6 weeks IV abx. Plan: Pt will d/c back to [facility] for 4-6 weeks IV abx cefazolin with [facility] to follow. [employer] will continue to follow. WILMER Veliz
--- NOTE | 2016-12-08 13:19 | NUR ---
Discharge/Transfer to [facility] Called report to REGINO June at [facility]. Tele removed, PIV DCd intact, all belongings with pt. O2 on for transportation. [employer] taking pt via WC to vehicle. Denies pain, no s/sx of distress.
--- NOTE | 2016-12-08 13:21 | PROG NOTE ---
[address] [address] PROGRESS NOTE PATIENT: JOSR FONTENOT : 1945 MR#: [id number] ADMIT: 11/27/2016 JOB ID: [id number] DATE: 12/08/2016 INFECTIOUS DISEASE FOLLOWUP NOTE: REASON FOR FOLLOWUP: MSSA bacteremia found during the admission for hematuria. INTERVAL HISTORY: The patient reports he continues to feel basically back to baseline. He has no fevers, chills, headache, or sore throat. No significant cough, shortness of breath, or chest pain. No nausea, vomiting, or diarrhea. He has a new PICC line in his right upper extremity which is functioning well. PHYSICAL EXAMINATION: Reveals an afebrile gentleman. Temperature 36.7, pulse 87, respiratory rate 18, blood pressure 105/62, saturating well on half a liter via nasal cannula. Eyes without conjunctivitis. Oral cavity negative. Lungs relatively clear. A few crackles at the bases. Cardiac tones: A 1/6 murmur as before. Note a new regurgitant murmur. Abdomen benign. No skin rash. PICC line looks benign. LABORATORIES: Include a white count normal at 9400 with normal diff. Creatinine is 0.43. Followup blood cultures from the and are all negative. Recall that on the admission though he had multiple positive blood cultures for MSSA in his blood and that was from 7. Yesterday's CATE was done by Dr. Manzo, and we discussed it immediately after the procedure had concluded. There were no suspicious vegetations or abnormalities consistent with endocarditis. IMPRESSION: This is a strange case of a gentleman who presented with hematuria and had a negative urine culture but multiple blood cultures grew methicillin-sensitive Staphylococcus aureus. We are very concerned about a possible community-acquired intravascular methicillin-sensitive Staphylococcus aureus infection such as endocarditis but transesophageal echocardiography has been negative and the blood cultures quickly turned negative. At this point, the patient looks fine. RECOMMENDATIONS: 1. I would continue with intravenous therapy for MSSA via the PICC line through December 27. 2. The patient will initially be going to the [facility], and I would continue cefazolin 2 g IV q.8 h. while he is at that facility. Unfortunately, the patient tells me he will not be staying all the way through December 27 and may leave in just a few days. The tricky part of this discharge will be to arrange antibiotics after discharge. The patient tells me he wants to drive each day from his home, which is quite near the hospital, to the infusion center and to receive IV antibiotics at our facility through the PICC line. I think this is an excellent plan but the trick will be to orchestrate the switch over from the antibiotics at the [facility] to the [facility]. To facilitate going to and from the [facility] only once a day I would switch his antibiotics from cefazolin 2 g IV q.8 h. at [facility] to 2 g IV once a day of ceftriaxone through the [facility] until December 27. 3. I have discussed this case in great detail with Dr. Salazar this morning, as well as with the patient, to try and make sure that there is no dropping of the ball when they switch therapy from [facility] to the [facility]. Patient has my office number and appointment with me for December 16. Assuming he leaves [facility] before December 16, I have instructed him to call my office to make sure we get everything set up. Dr. Salazar also plans to involve the discharge planners and social workers in this plan. Thank you very much. I will be signing off today.
[2016-12-08] MEDS ORDERED: HYDR-4003 PO (14:10)
--- NOTE | 2016-12-08 16:45 | PCM.DC.MED ---
Discharge Summary Date of Service Dec 08, 2016 Dates of Hospitalization Date of Hospital Admission Nov 27, 2016 at 16:00 Date of Discharge: Dec 08, 2016 Providers: Admitting Physician: Kym Winter MD [facility] Attending Physician: Kym Winter MD Diagnosis at Time of Discharge Diagnosis at Time of Discharge # Acute hematuria, present on admission. Resolved # Acute bacteremia with MSSA. Present on admission. Under treatment with IV antibiotics. # Suspected acute urinary tract infection on admission ruled out with negative cultures. # Chronic Atrial Fibrillation, present on admission. Stable. -Will need to followup with primary care provider to decide if and when to restart Coumadin # Acute blood loss anemia from bladder, present on admission. Stable without need for transfusion. # Chronic congestive heart failure secondary to diastolic dysfunction. Stable # Chronic obstructive pulmonary disease, present on admission. Stable. # Hypertension, present on admission. Well controlled. # Left leg wound, chronic. Present on admission. # Left Lung Nodule noted on chest X-ray on 11/27/16 - Out Patient follow up with primary care provider recommended Consultations 1. ID (Dr Wan) 2. Urology (Dr Medina) Procedures XRay, CTs & MRIs Date of Service: 11/27/16 1339 PROCEDURE: X-RAY CHEST ONE VIEW, PORTABLE ([id number]) IMPRESSION: 1. No acute cardiopulmonary process is evident. 2. Left pulmonary nodule. Dictated by: Jeevan Ruggiero M.D. on 11/27/2016 at 12:57 Approved by: Jevean Ruggiero M.D. on 11/27/2016 at 12:59 Date of Service: 11/27/16 1359 PROCEDURE: CT KUB ([id number]) IMPRESSION: 1. Left nephrolithiasis without hydronephrosis. Renal cysts. 2. Urinary bladder contains a North catheter. There is apparently hemorrhagic urine within the decompressed bladder lumen and bladder wall thickening or mass cannot be assessed. 3. Bilateral pulmonary nodules are reidentified. Appropriate followup as previously recommended. 3. Pleural calcifications may reflect prior asbestos exposure or residual from previous infection Dictated by: Nasim Zendejas M.D. on 11/27/2016 at 14:46 Approved by: Nasim Zendejas M.D. on 11/27/2016 at 15:02 Cardiac Echo Impression Date of Service: 12/01/16 1530 Echocardiogram Report Interpretation Summary The study quality was technically limited. The ejection fraction is estimated to be 60-65%. There are no obvious focal wall motion abnormalities noted but poor endocardial definition reduces the sensitivity for the detection of such. The right ventricular systolic pressure is estimated at least 46 mmHg assuming a right atrial pressure of 8 mm Hg. Electronically signed by: Devin Jackson on Reading Physician:12/01/2016 12:08 PM Date of Service: 12/07/16 1300 Echocardiogram Report Interpretation Summary The left ventricle is normal in size, wall thickness, and systolic function without any focal wall motion abnormalities with the ejection fraction is estimated to be 60-65%. The right ventricle is moderately dilated and right ventricular systolic function is at the lower limits of normal. No left atrial mass or thrombus visualized. The interatrial septum is intact with no evidence for an atrial septal defect or Doppler evidence for an interatrial shunt. The mitral valve is normal. There is no vegetation seen on the mitral valve. There is trace mitral regurgitation. The aortic valve is slightly calcified but there is no mobile structure to suggest a valvular vegetation. The tricuspid valve is not well visualized, but is grossly normal and there is no obvious tricuspid valve vegetation. There is moderate tricuspid regurgitation. The pulmonic valve is not well seen, but is grossly normal without obvious vegetation on the pulmonic valve. There is mild pulmonic regurgitation. Reading Physician:05:46 PM Brief History 70-year-old, white male who was recently hospitalized. He was here from November 02 to , with respiratory failure, CHF, new AFib and a COPD exacerbation. He had a North placed and was [facility]. A few days ago, there was hematuria and some blockages of his catheter. He was seen in the ED, and he was started on her Pyridium, Cipro for UTI. He had his North irrigated and changed. He felt better, and then on this admission he had resumption of hematuria, burning around the catheter site Hospital Course # Acute bacteremia with MSSA. present on admission. ongoing -unclear source source -appreciate ID consult. will f/u w/ recs -continue with high-dose cefazolin until December 27 -TTE and CATE negative as noted above # Acute Hematuria, present on admission. resolved -North removed on 12/03 -continue to hold Coumadin for now -gave one unit Fresh Frozen 11/28/16 -appreciate urology consult by Dr. Medina. will f/u w/ recs -will need further followup as outpatient for cystoscopy # Suspected acute urinary tract infection present on admission. -cultures without significant growth -workup and treatment as noted above # Chronic, AFib, present on admission. Stable. -Continue with patient's metoprolol, rate controlled -patient elects not to restart Coumadin at this time -restarted Aspirin on 12/05 -patient can reconsider Coumadin with PCP # Acute blood loss anemia from bladder, poa, stable -no need for transfusion # Chronic congestive heart failure secondary to diastolic dysfunction, poa, stable -Continue patient's Lasix # Chronic obstructive pulmonary disease, present on admission. Stable. -p.r.n. albuterol, nebulizers, etc. # Hypertension, present on admission. stable -Continue patient's beta blockers, metoprolol. # Left leg wound, chronic. Present on admission. improving # Left Lung Nodule noted on CXR, 11/27/16, poa, active -Out Patient Follow up recommended by day of discharge lungs CTA bilat. patient has PICC line in left arm. Exam Vital Signs (Last) Date Time Temp Pulse Resp B/P Pulse Ox O2 Delivery O2 Flow Rate FiO2 12/08/16 11:12 36.7 87 18 105/62 92 Nasal Cannula 0.50 Test 11/27/16 12:24 11/27/16 12:33 11/27/16 12:35 11/27/16 14:47 Hold Abbasi Top Tube Received (Received) Total Bilirubin 0.6mg/dL (0.0-1.2) Aspartate Amino Transf (AST/SGOT) 19U/L (0-50) Alanine Aminotransferase (ALT/SGPT) 23U/L (0-44) Alkaline Phosphatase 110U/L (25-160) Total Protein 7.6g/dL (6.4-8.4) Albumin 3.4g/dL (3.4-5.0) Lactic Acid Level 1.3mmol/L (0.4-2.0) Urine Color Red (YELLOW) Urine Appearance Turbid (CLEAR,HAZY) Urine pH (5.0-8.0) Urine Specific [place] 1.015 (1.003-1.035) Urine Protein mg/dL (NEG,TRACE) Urine Glucose (UA) mg/dL (NEGATIVE) Urine Ketones mg/dL (NEGATIVE) Urine Occult Blood (NEGATIVE) Urine Nitrite (NEGATIVE) Urine Bilirubin (NEGATIVE) Urine Urobilinogen mg/dL (NORMAL) Urine Leukocyte Esterase (NEGATIVE) Urine RBC Packed/hpf (0-2) Urine WBC 11-50/hpf (0-5) Urine Epithelial Cells Occasional/hpf (NONE-MOD) Urine Crystals None seen (NONE SEEN) Urine Bacteria Few/hpf (NONE-FEW) Urine Hyaline Casts None/lpf (NONE) Urine Granular Casts None seen (NONE SEEN) Urine Waxy Casts None seen (NONE SEEN) Urine Red Blood Cell Casts None seen (NONE SEEN) Urine White Blood Cell Casts None seen (NONE SEEN) Urine Mucus None seen (None Seen) Urine Trichomonas None seen (NONE SEEN) Urine Yeast None (NONE SEEN) Urinalysis Comment Color interference Urine Culture Reflexed Indicated Test 11/30/16 05:45 12/02/16 05:32 12/05/16 05:10 12/08/16 05:50 Procalcitonin 0.17ng/mL (0.00-0.08) Prothrombin Time 12.0sec (8.1-12.5) Prothromb Time International Ratio 1.12ratio Magnesium Level 2.2mg/dL (1.6-2.6) White Blood Count 9.4th/mm3 (3.8-10.1) Red Blood Count 4.15mil/mm3 (4.40-5.80) Hemoglobin 10.6g/dL (13.8-17.2) Hematocrit 37.2% (41.0-50.0) Mean Corpuscular Volume 89.6fL (81-100) Mean Corpuscular Hemoglobin 25.5pg (27.0-35.0) Mean Corpuscular Hemoglobin Concent 28.5% (32.0-37.0) Red Cell Distribution Width 20.8% (12.3-15.4) Platelet Count 251bil/L (150-400) Neutrophils (%) (Auto) 72.4% (40-74) Lymphocytes (%) (Auto) 18.4% (14-46) Monocytes (%) (Auto) 6.9% (4-12) Eosinophils (%) (Auto) 1.7% (0-5) Basophils (%) (Auto) 0.2% (0-3) Sodium Level 141mEq/L (134-144) Potassium Level 4.4mEq/L (3.5-5.2) Chloride Level 102mEq/L (97-108) Carbon Dioxide Level 29mmol/L (18-29) Blood Urea Nitrogen 12mg/dL (8-27) Creatinine 0.43mg/dL (0.76-1.27) Estimat Glomerular Filtration Rate 207mL/min (>59) Glucose Level 92mg/dL (60-99) Calcium Level 8.5mg/dL (8.5-10.1) Discharge Medications Discharge Medications Alfuzosin ER (Alfuzosin ER) 10 Mg Tab.er.24h 10 MG PO DAILY Prescribed by: JAZZMINE DELGADILLO Aspirin Chew (Aspirin Chew) 81 Mg Chew 81 MG PO DAILY (Reported) Cefazolin Sodium/Dextrose,Iso (Cefazolin 2 gm-D5w Bag) 2 Gm/50 Ml Piggyback 2 GM IV Q8H Through December 27 Prescribed by: AASHISH HARLEY MD Cholecalciferol (Vitamin D3) (Children's Vitamin D3) 1,000 Unit Tab.chew 2,000 UNIT PO DAILY (Reported) Cyanocobalamin (Vitamin B-12) (Vitamin B-12) 1,000 Mcg Tablet 1,000 MCG PO DAILY (Reported) Furosemide (Furosemide) 40 Mg Tablet 40 MG PO BIDWM (Reported) Lactobacillus Acidophilus (Acidophilus) 1 Each Tablet 2 EACH PO BID (Reported) x7 days starting 11/25/16 Metoprolol Tartrate (Metoprolol Tartrate) 25 Mg Tablet 12.5 MG PO BID Prescribed by: KOBY HUGHES MD As needed Acetaminophen (Acetaminophen) 325 Mg Tablet 650 MG PO Q4H PRN PRN For Pain ( Reported) Albuterol HFA (Proair HFA) 8.5 Gm Hfa.aer.ad 2 PUFFS INHALATION Q4H PRN PRN For Shortness of Breath (Reported) Hydrocodone-Acetaminophen 5-325 mg (Hydrocodone-Acetaminophen 5-325 mg) 1 Each Tablet 1 TABLET PO TID PRN PRN For Pain Prescribed by: AASHISH HARLEY MD Followup Plan Disposition: Kristan Nick [facility] Follow-up plan 1. Followup with primary care provider in about one week. 2. Followup with urology (Dr. Medina or one referred by your primary care provider) in about 3-4 weeks for consideration of outpatient cystoscopy [facility] [address] [place] [address] Discharge Diet: Low fat, Low Sodium, Heart Healthy Discharge Activity: Other (as tolerated and per physical therapy) Follow-up Provider: [facility] Time spent 35 min copies to: [facility] Aasihsh Harley Dec 08, 2016 16:45
== END 2016-12-08 13:16 | DRG 872 ==
LOC: SED 12:19 → EDBD 12:19 → MPC 16:00
PROVIDERS: ADMIT Hospitalist; ATTEND Hospitalist
PROC: 30233K1 Transfusion of Nonautologous Frozen Plasma into Peripheral Vein, Percutaneous Approach (ICD-10-PCS; 2016-11-28)
PROC: B24BZZ4 Ultrasonography of Heart with Aorta, Transesophageal (ICD-10-PCS; principal; 2016-12-07)
DX: R78.81 Bacteremia (principal); I50.32 Chronic diastolic (congestive) heart failure; D62 Acute posthemorrhagic anemia; Z68.41 Body mass index [BMI] 40.0-44.9, adult; R31.0 Gross hematuria; B95.61 Methicillin susceptible Staphylococcus aureus infection as the cause of diseases classified elsewhere; I48.2 Chronic atrial fibrillation; J44.9 Chronic obstructive pulmonary disease, unspecified; I10 Essential (primary) hypertension; R91.1 Solitary pulmonary nodule; Z79.01 Long term (current) use of anticoagulants; F17.210 Nicotine dependence, cigarettes, uncomplicated; E66.01 Morbid (severe) obesity due to excess calories